=== PATIENT | female | born 1955 | race Caucasian/White ===

== ENCOUNTER 2016-03-10 17:13 | Emergency (ER) | payer OTHER ==
--- NOTE | 2016-03-10 17:59 | ED.PDOC ---
History of Present Illness - General Chief Complaint: General Time Seen by Provider: 03/10/16 17:50 Source: patient Exam Limitations: no limitations - History of Present Illness Initial Comments: Patient presents with non-specific complaints of "not feeling right". She ran out of her cyUmengalta and abilify a month ago and is having trouble getting refills approved by insurance she states. She says she is light-headed and has had palpitations but no chest pain. She is worried that her electrolytes are off and that she is dehydrated. No focal pain complaints. Timing/Duration: unsure Severity: moderate Improving Factors: nothing Worsening Factors: nothing Associated Symptoms: denies symptoms, loss of appetite Allergies/Adverse Reactions: Allergies Penicillins Allergy (Verified 03/10/16 19:22) Other Causes a rash and throat to swell Codeine Adverse Reaction (Mild, Verified 03/10/16 19:22) Unknown Patient states, "Not Allergy". Makes her "feel funny" Hydrocodone Adverse Reaction (Mild, Verified 03/10/16 19:22) Unknown Patient states, "Not allergy". States makes her "feel funny" Hydromorphone [From Dilaudid] Adverse Reaction (Mild, Verified 03/10/16 19:22) Unknown Patient states, "Not Allergy". Morphine Adverse Reaction (Mild, Verified 03/10/16 19:22) Unknown Patient States, "Not Allergy". Makes her "feel funny" horse serum Allergy (Uncoded 03/10/16 19:22) Unknown Home Medications: Ambulatory Orders Duloxetine HCl [Cymbalta] 60 mg PO DAILY #0 05/13/12 Cyclobenzaprine HCl [Flexeril] 10 mg PO BID 06/03/15 Estradiol [Estrace] 1 mg PO DAILY 06/03/15 Lisinopril 20 mg PO DAILY 06/03/15 Potassium Chloride Tab [Micro-K] 10 meq PO ACBK 06/03/15 Sumatriptan Succinate 50 mg PO DAILY PRN 06/03/15 Multiple Vitamins W/ Minerals [One Daily Womens] 1 tab PO DAILY 10/13/15 Oral Electrolytes [Thermotabs] 1 tab PO DAILY 10/13/15 Propranolol HCl [Inderal] 40 mg PO BID 10/13/15 Rosuvastatin Calcium [Crestor] 20 mg PO DAILY 10/13/15 Aripiprazole [Abilify] 15 mg PO DAILY 12/28/15 Diltiazem HCl 30 mg PO BID 12/28/15 Potassium Chloride Tab [Micro-K] 20 meq PO ACHS 12/28/15 Trazodone HCl 350 mg PO HS 12/28/15 Review of Systems - Review of Systems Constitutional: States: weakness EENTM: States: no symptoms reported Respiratory: States: no symptoms reported Cardiology: States: no symptoms reported Gastrointestinal/Abdominal: States: no symptoms reported Genitourinary: States: no symptoms reported Musculoskeletal: States: no symptoms reported Skin: States: no symptoms reported Neurological: States: no symptoms reported Endocrine: States: no symptoms reported Hematologic/Lymphatic: States: no symptoms reported Past Medical History (General) - Patient Medical History Hx Seizures: No Hx Stroke: No Hx Dementia: No Hx Asthma: No Hx of COPD: No Hx Cardiac Disorders: Yes Hx Congestive Heart Failure: No Hx Pacemaker: No Hx Hypertension: Yes Hx Thyroid Disease: No Hx Diabetes: No Hx Gastroesophageal Reflux: No Hx Renal Disease: No Hx Cancer: No Hx of HIV: No Hx Hepatitis C: No Hx MRSA: No MRSA Source:: nose - Vaccination History Hx Tetanus, Diphtheria Vaccination: No Hx Influenza Vaccination: No Hx Pneumococcal Vaccination: No - Social History Hx Tobacco Use: No Hx Chewing Tobacco Use: No Hx Alcohol Use: No Hx Substance Use: No Hx Substance Use Treatment: No Hx Depression: No Hx Physical Abuse: No Hx Emotional Abuse: No Hx Suspected Abuse: No - Female History Patient : No Family Medical History - Family History Mother Family History: No Known Living Status: Hx Family Diabetes: Yes Father Family History: No Known Living Status: Hx Family Hypertension: Yes Hx Family Cancer: Yes Hx Family;Other: dialysis towards end of life Physical Exam - Physical Exam General Appearance: Alert Eye Exam: bilateral normal Ears, Nose, Throat: normal ENT inspection Neck: non-tender, full range of motion, supple Respiratory: lungs clear Cardiovascular/Chest: normal peripheral pulses, regular rate, rhythm, no edema Gastrointestinal/Abdominal: normal bowel sounds, non tender, soft Back Exam: normal inspection, no CVA tenderness Extremity: normal range of motion, non-tender, normal inspection, no pedal edema 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, no motor/sensory deficits, alert, normal mood/affect, oriented x 3 Skin Exam: normal color Lymphatic: no adenopathy Progress - Progress Progress: 03/10/16 20:31 Laboratory Tests 03/10/16 03/10/16 18:05 19:10 WBC 8.2 RBC 4.26 Hgb 14.1 Hct 41.8 MCV 97.9 MCH 33.0 H MCHC 33.8 RDW 12.9 Plt Count 248 MPV 8.5 Absolute Neuts (auto) 5.20 Absolute Lymphs (auto) 2.20 Absolute Monos (auto) 0.60 Absolute Eos (auto) 0.10 Absolute Basos (auto) 0.10 Neutrophils % 63.5 Lymphocytes % 26.3 Monocytes % 7.9 Eosinophils % 1.3 Basophils % 1.0 Sodium 134 L Potassium 3.8 Chloride 103 Carbon Dioxide 24 Anion Gap 10.8 L BUN 19 H Creatinine 0.93 BUN/Creatinine Ratio 20.4 H Random Glucose 113 H Serum Osmolality 271.3 L Calcium 9.7 Total Bilirubin 0.7 AST 36 ALT 26 Alkaline Phosphatase 32 L Serum Total Protein 7.3 Albumin 4.2 Globulin 3.1 Albumin/Globulin Ratio 1.4 Urine Color Yellow Urine Appearance Cloudy Urine pH 6.0 Ur Specific [place] 1.020 Urine Protein Negative Urine Glucose (UA) Negative Urine Ketones Negative Urine Blood Negative Urine Nitrite Positive H Urine Bilirubin Negative Urine Urobilinogen 0.2 Ur Leukocyte Esterase Trace H Urine RBC 3-5 H Urine WBC 10-20 H Ur Epithelial Cells 1-3 Urine Bacteria 4+ H BUN 19 Cr. 0.93 Other labs unremarkable. Patient given one liter NS IV and felt much better. She is going to work with her insurance company and try to get her medications refilled. Departure - Departure Clinical Impression: Dehydration, mild Disposition: Discharge to Home or Self Care Condition: Good Departure Forms: ED Discharge - Pt. Copy, Patient Portal Self Enrollment Diet: resume usual diet Activity: increase activity as tolerated Home Medications: Ambulatory Orders Duloxetine HCl [Cymbalta] 60 mg PO DAILY #0 05/13/12 Cyclobenzaprine HCl [Flexeril] 10 mg PO BID 06/03/15 Estradiol [Estrace] 1 mg PO DAILY 06/03/15 Lisinopril 20 mg PO DAILY 06/03/15 Potassium Chloride Tab [Micro-K] 10 meq PO ACBK 06/03/15 Sumatriptan Succinate 50 mg PO DAILY PRN 06/03/15 Multiple Vitamins W/ Minerals [One Daily Womens] 1 tab PO DAILY 10/13/15 Oral Electrolytes [Thermotabs] 1 tab PO DAILY 10/13/15 Propranolol HCl [Inderal] 40 mg PO BID 10/13/15 Rosuvastatin Calcium [Crestor] 20 mg PO DAILY 10/13/15 Aripiprazole [Abilify] 15 mg PO DAILY 12/28/15 Diltiazem HCl 30 mg PO BID 12/28/15 Potassium Chloride Tab [Micro-K] 20 meq PO ACHS 12/28/15 Trazodone HCl 350 mg PO HS 12/28/15 Additional Instructions: Increase fluids. See your regular doctor regarding refills or changes to your medications.
[2016-03-10] MEDS ORDERED: SODIUM CHLORIDE 0.9% 1000ML 1,000 ML IVS ONE (18:38)
[2016-03-10 19:24] VITALS: O2SAT 96
[2016-03-10 20:49] VITALS: BP 110/75; TEMP 97.6
== END 2016-03-10 20:48 | disposition home or self-care (01) ==
LOC: ER 17:13
DX: E86.0 Dehydration (principal); I10 Essential (primary) hypertension; Z79.899 Other long term (current) drug therapy; Z88.0 Allergy status to penicillin; Z88.6 Allergy status to analgesic agent; Z88.7 Allergy status to serum and vaccine
CPT/HCPCS: 36415; 80053; 81001; 85025; 87086; 87088; 87186; 93005; J7030

== ENCOUNTER → 2016-03-31 | Outpatient (CLI) | payer OTHER | LOC: YCFC.O 17:10 | PROVIDERS: ATTEND Nurse Practitioner Family | DX: N39.0 Urinary tract infection, site not specified (principal) ==

== ENCOUNTER → 2016-08-09 | Outpatient (CLI) | payer OTHER | END | disposition home or self-care (01) | LOC: YCFC.O 16:39 | PROVIDERS: ATTEND Nurse Practitioner Family | DX: N39.0 Urinary tract infection, site not specified (principal) ==

== ENCOUNTER → 2016-08-19 | Outpatient (CLI) | payer OTHER | END | disposition home or self-care (01) | LOC: MAMMO 16:34 | PROVIDERS: ATTEND Nurse Practitioner Family | DX: Z12.31 Encounter for screening mammogram for malignant neoplasm of breast (principal) ==

== ENCOUNTER → 2016-09-02 | Outpatient (CLI) | payer OTHER | LOC: YCFC.O 16:14 | PROVIDERS: ATTEND Nurse Practitioner Family | DX: N39.0 Urinary tract infection, site not specified (principal) ==

== ENCOUNTER → 2016-10-15 | Outpatient (CLI) | payer OTHER | END | disposition home or self-care (01) | LOC: YCFC.O 10:32 | PROVIDERS: ATTEND Nurse Practitioner Family | DX: N39.0 Urinary tract infection, site not specified (principal); E78.2 Mixed hyperlipidemia; I10 Essential (primary) hypertension ==

== ENCOUNTER 2017-01-06 13:11 | Emergency (ER) | payer OTHER ==
[2017-01-06 13:21] VITALS: BP 139/94; TEMP 97.9; O2SAT 97
[2017-01-06] MEDS ORDERED: PROMETHAZINE HCL INJ 25 MG/ML VIAL IM ONE (13:46)
[2017-01-06] MEDS ORDERED: KETOROLAC TROMETHAMINE INJ 30 MG/ML VIAL IM ONE (13:46)
[2017-01-06] MEDS ORDERED: MECLIZINE HCL 12.5 MG TAB PO ONE (13:46)
[2017-01-06] MEDS ORDERED: ACETAMINOPHEN 325 MG TAB PO ONE (13:46)
--- NOTE | 2017-01-06 13:49 | ED.PDOC ---
History of Present Illness - General Chief Complaint: ENT Problem Stated Complaint: earache, headache Time Seen by Provider: 01/06/17 13:45 Source: patient Exam Limitations: no limitations - History of Present Illness Initial Comments: the patient is a 61-year-old female presenting to the emergency room secondary to left ear pain after using a candle to get wax out yesterday. The ear pain is limited to migraine headache. She does have some nausea with the migraine. She has had frequent migraines in the past and has had workup previously. The patient actually has a cerumen impaction bilaterally. One on the left is causing her symptoms. No evidence of infection. There is ear canal irritation from thecandling yesterday. Timing/Duration: unsure Severity: moderate Improving Factors: nothing Worsening Factors: nothing Associated Symptoms: malaise, nausea/vomiting Allergies/Adverse Reactions: Allergies Penicillins Allergy (Verified 01/06/17 13:24) Other Causes a rash and throat to swell Codeine Adverse Reaction (Mild, Verified 01/06/17 13:24) Unknown Patient states, "Not Allergy". Makes her "feel funny" Hydrocodone Adverse Reaction (Mild, Verified 01/06/17 13:24) Unknown Patient states, "Not allergy". States makes her "feel funny" Hydromorphone [From Dilaudid] Adverse Reaction (Mild, Verified 01/06/17 13:24) Unknown Patient states, "Not Allergy". Morphine Adverse Reaction (Mild, Verified 01/06/17 13:24) Unknown Patient States, "Not Allergy". Makes her "feel funny" horse serum Allergy (Uncoded 01/06/17 13:24) Unknown Home Medications: Ambulatory Orders Duloxetine HCl [Cymbalta] 60 mg PO DAILY #0 05/13/12 Cyclobenzaprine HCl [Flexeril] 10 mg PO BID 06/03/15 Estradiol [Estrace] 1 mg PO DAILY 06/03/15 Lisinopril 20 mg PO DAILY 06/03/15 Sumatriptan Succinate 50 mg PO DAILY PRN 06/03/15 Multiple Vitamins W/ Minerals [One Daily Womens] 1 tab PO DAILY 10/13/15 Propranolol HCl [Inderal] 40 mg PO BID 10/13/15 Diltiazem HCl 30 mg PO BID 12/28/15 Potassium Chloride Tab [Micro-K] 20 meq PO TID 12/28/15 Promethazine HCl 25 mg PO Q6H PRN #10 tab 01/06/17 QUEtiapine FUMARATE [SEROquel] 100 mg PO BEDTIME 01/06/17 Review of Systems - Review of Systems Constitutional: States: malaise EENTM: States: see HPI Respiratory: States: no symptoms reported Cardiology: States: see HPI Gastrointestinal/Abdominal: States: nausea Genitourinary: States: no symptoms reported Musculoskeletal: States: no symptoms reported Skin: States: no symptoms reported Neurological: States: headache Hematologic/Lymphatic: States: no symptoms reported All other Systems: No Change from Baseline Past Medical History (General) - Patient Medical History Hx Seizures: No Hx Stroke: No Hx Dementia: No Hx Asthma: No Hx of COPD: No Hx Cardiac Disorders: Yes Hx Congestive Heart Failure: No Hx Pacemaker: No Hx Hypertension: Yes Hx Thyroid Disease: No Hx Diabetes: No Hx Gastroesophageal Reflux: No Hx Renal Disease: No Hx Cancer: No Hx of HIV: No Hx Hepatitis C: No Hx MRSA: No MRSA Source:: nose - Vaccination History Hx Tetanus, Diphtheria Vaccination: No Hx Influenza Vaccination: No Hx Pneumococcal Vaccination: No - Social History Hx Tobacco Use: No Hx Chewing Tobacco Use: No Hx Alcohol Use: No Hx Substance Use: No Hx Substance Use Treatment: No Hx Depression: No Hx Physical Abuse: No Hx Emotional Abuse: No Hx Suspected Abuse: No - Female History Patient is a Female of Child Bearing Age (10 -59 yrs old): No Patient : No Family Medical History - Family History Mother Family History: No Known Living Status: Hx Family Diabetes: Yes Father Family History: No Known Living Status: Hx Family Hypertension: Yes Hx Family Cancer: Yes Hx Family;Other: dialysis towards end of life Physical Exam - Physical Exam General Appearance: Alert, Comfortable, No apparent distress Eye Exam: bilateral normal Ears, Nose, Throat: normal pharynx, other - bilateral cerumen impaction with ear canal irritation on the left Neck: full range of motion, supple Respiratory: no respiratory distress, no accessory muscle use Cardiovascular/Chest: normal peripheral pulses, regular rate, rhythm, no edema Peripheral Pulses: radial,right: 2+, radial,left: 2+, dorsalis pedis,right: 2+, dorsalis pedis,left: 2+ Rectal Exam: deferred Extremity: normal range of motion, no pedal edema, normal capillary refill 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 This has lead to a migraine headache. The patient received a dose of Toradol, Phenergan and meclizine as well as Tylenol here today. We did manually disimpact the left ear canal. No obvious evidence of infection. Ibuprofen may help additionally. The patient is written for Phenergan for as needed use for any nausea. ER warnings were given. She can orange picker some Cerumenex from the grocery store and apply several drops daily to the right ear canal. At the end of the day she can use her shower to irrigate the ear canal and this should gradually disimpact the one on the right. Dizziness should improve with ear canal disimpaction. ER warnings were given for any acute worsening. She should follow-up with her primary care doctor early next week. Departure - Departure Clinical Impression: Otitis externa Qualifiers: Otitis externa type: noninfectious Noninfectious otitis externa type: unspecified noninfectious type Chronicity: acute Laterality: left Qualified Code (s): H60.502 - Unspecified acute noninfective otitis externa, left ear Migraine Qualifiers: Migraine type: unspecified Status migrainosus presence: without status migrainosus Intractability: not intractable Qualified Code(s): G43.909 - Migraine, unspecified, not intractable, without status migrainosus Disposition: Discharge to Home or Self Care Condition: Fair Departure Forms: ED Discharge - Pt. Copy, Patient Portal Self Enrollment Instructions: DI for Ear Pain-Adult, Migraine -- Adult Diet: regular diet Activity: increase activity as tolerated Referrals: Belinda Velez [employer] [Primary Care Provider] - 1-2 Weeks Prescriptions: Promethazine HCl 25 mg PO Q6H PRN #10 tab PRN Reason: Vomiting Home Medications: Ambulatory Orders Duloxetine HCl [Cymbalta] 60 mg PO DAILY #0 05/13/12 Cyclobenzaprine HCl [Flexeril] 10 mg PO BID 06/03/15 Estradiol [Estrace] 1 mg PO DAILY 06/03/15 Lisinopril 20 mg PO DAILY 06/03/15 Sumatriptan Succinate 50 mg PO DAILY PRN 06/03/15 Multiple Vitamins W/ Minerals [One Daily Womens] 1 tab PO DAILY 10/13/15 Propranolol HCl [Inderal] 40 mg PO BID 10/13/15 Diltiazem HCl 30 mg PO BID 12/28/15 Potassium Chloride Tab [Micro-K] 20 meq PO TID 12/28/15 Promethazine HCl 25 mg PO Q6H PRN #10 tab 01/06/17 QUEtiapine FUMARATE [SEROquel] 100 mg PO BEDTIME 01/06/17 Additional Instructions: the patient is a 61-year-old female presenting with an otitis externa due to instrumentation yesterday on the left. This has lead to a migraine headache. The patient received a dose of Toradol, Phenergan and meclizine as well as Tylenol here today. We did manually disimpact the left ear canal. No obvious evidence of infection. Ibuprofen may help additionally. The patient is written for Phenergan for as needed use for any nausea. ER warnings were given. She can orange picker some Cerumenex from the grocery store and apply several drops daily to the right ear canal. At the end of the day she can use her shower to irrigate the ear canal and this should gradually disimpact the one on the right. Dizziness should improve with ear canal disimpaction. ER warnings were given for any acute worsening. She should follow-up with her primary care doctor early next week.
== END 2017-01-06 14:20 | disposition home or self-care (01) ==
LOC: ER 13:11
DX: H60.502 Unspecified acute noninfective otitis externa, left ear (principal); G43.909 Migraine, unspecified, not intractable, without status migrainosus; I10 Essential (primary) hypertension
CPT/HCPCS: J1885; J2550

== ENCOUNTER 2017-02-10 12:15 | Emergency (ER) | payer OTHER ==
[2017-02-10 12:34] VITALS: TEMP 99.1
--- NOTE | 2017-02-10 13:13 | ED.PDOC ---
History of Present Illness - General Chief Complaint: General Stated Complaint: abdominal cramping, body aches, chills Time Seen by Provider: 02/10/17 13:13 Source: patient - History of Present Illness Initial Comments: Sona Bonds 61 y/o female seen today with feeling of nausea/no vomiting , abdominal cramps,no diarrhea,had normal Bm yesterday,and not feeling well.Denies chills,dysuria,.No ill contact,no foreign travel Timing/Duration: other - yesterday Improving Factors: nothing Worsening Factors: nothing Associated Symptoms: other - see hpi Allergies/Adverse Reactions: Allergies Penicillins Allergy (Verified 02/10/17 12:35) Other Causes a rash and throat to swell horse serum Allergy (Uncoded 02/10/17 12:35) Unknown Home Medications: Ambulatory Orders Duloxetine HCl [Cymbalta] 60 mg PO DAILY #0 05/13/12 Cyclobenzaprine HCl [Flexeril] 10 mg PO BID 06/03/15 Estradiol [Estrace] 1 mg PO DAILY 06/03/15 Lisinopril 20 mg PO DAILY 06/03/15 Sumatriptan Succinate 50 mg PO DAILY PRN 06/03/15 Multiple Vitamins W/ Minerals [One Daily Womens] 1 tab PO DAILY 10/13/15 Propranolol HCl [Inderal] 40 mg PO BID 10/13/15 Diltiazem HCl 30 mg PO BID 12/28/15 Potassium Chloride Tab [Micro-K] 20 meq PO TID 12/28/15 Promethazine HCl 25 mg PO Q6H PRN #10 tab 01/06/17 QUEtiapine FUMARATE [SEROquel] 100 mg PO BEDTIME 01/06/17 Dicyclomine HCl [Bentyl] 20 mg PO BID PRN #10 tab 02/10/17 Nitrofurantoin Monohydrate Mac [Macrobid] 100 mg PO BID #14 cap 02/10/17 Ondansetron [Zofran Odt] 4 mg PO TID PRN #7 tab 02/10/17 Review of Systems - Review of Systems Constitutional: States: see HPI EENTM: States: no symptoms reported Respiratory: States: no symptoms reported Cardiology: States: no symptoms reported Gastrointestinal/Abdominal: States: see HPI Genitourinary: States: no symptoms reported Musculoskeletal: States: no symptoms reported Skin: States: no symptoms reported Neurological: States: no symptoms reported Past Medical History (General) - Patient Medical History Hx Seizures: No Hx Stroke: No Hx Dementia: No Hx Asthma: No Hx of COPD: No Hx Cardiac Disorders: Yes Hx Congestive Heart Failure: No Hx Pacemaker: No Hx Hypertension: Yes Hx Thyroid Disease: No Hx Diabetes: No Hx Gastroesophageal Reflux: No Hx Renal Disease: No Hx Cancer: No Hx of HIV: No Hx Hepatitis C: No Hx MRSA: No MRSA Source:: nose Surgical History: appendectomy, cholecystectomy, other - bariatric surgery;CTS, - Vaccination History Hx Tetanus, Diphtheria Vaccination: No Hx Influenza Vaccination: Yes Hx Pneumococcal Vaccination: Yes - Social History Hx Tobacco Use: No Hx Chewing Tobacco Use: No Hx Alcohol Use: No Hx Substance Use: No Hx Substance Use Treatment: No Hx Depression: No Hx Physical Abuse: No Hx Emotional Abuse: No Hx Suspected Abuse: No - Female History Patient : No Family Medical History - Family History Mother Family History: No Known Living Status: Hx Family Hypertension: Yes - mom Hx Family Diabetes: Yes Hx Family Cancer: Yes - dad-kidney Father Family History: No Known Living Status: Hx Family Hypertension: Yes Hx Family Cancer: Yes Hx Family;Other: dialysis towards end of life Physical Exam - Physical Exam General Appearance: Alert, Comfortable, No apparent distress Eye Exam: bilateral normal Ears, Nose, Throat: hearing grossly normal, normal ENT inspection, normal pharynx Neck: non-tender, full range of motion, supple Respiratory: chest non-tender, lungs clear, normal breath sounds, no respiratory distress Cardiovascular/Chest: normal peripheral pulses, regular rate, rhythm, no edema, no murmur Peripheral Pulses: radial,right: 2+, radial,left: 2+ Gastrointestinal/Abdominal: normal bowel sounds, non tender, soft, no organomegaly Back Exam: normal inspection, no CVA tenderness, no vertebral tenderness Neurologic: alert, normal mood/affect, oriented x 3 Skin Exam: normal color, warm/dry, cyanosis Progress - Progress Progress: 02/10/17 13:26 Last Vital Signs Temp 99.1 F 02/10/17 12:27 Pulse 128 H 02/10/17 12:27 Resp 20 02/10/17 12:27 BP 141/105 02/10/17 12:27 Pulse Ox 98 12/28/17 12:27 - Results/Orders Results/Orders: Laboratory Tests 02/10/17 02/10/17 02/10/17 13:27 13:44 13:44 WBC 8.7 RBC 4.93 Hgb 15.6 Hct 45.7 MCV 92.8 MCH 31.6 H MCHC 34.1 RDW 12.4 Plt Count 228 MPV 9.0 Absolute Neuts (auto) 6.50 Absolute Lymphs (auto) 1.50 Absolute Monos (auto) 0.60 Absolute Eos (auto) 0.00 Absolute Basos (auto) 0.00 Neutrophils % 74.7 Lymphocytes % 17.5 L Monocytes % 7.0 Eosinophils % 0.5 L Basophils % 0.3 Sodium 139 Potassium 3.5 L Chloride 103 Carbon Dioxide 24 Anion Gap 15.5 BUN 8 Creatinine 0.74 BUN/Creatinine Ratio 10.8 Random Glucose 120 H Serum Osmolality 277.1 Lactic Acid Calcium 9.5 Total Bilirubin 0.4 AST 42 ALT 28 Alkaline Phosphatase 46 Serum Total Protein 8.5 H Albumin 4.5 Globulin 4.0 H Albumin/Globulin Ratio 1.1 Lipase 20 L Urine Color Urine Appearance Urine pH Ur Specific [place] Urine Protein Urine Glucose (UA) Urine Ketones Urine Blood Urine Nitrite Urine Bilirubin Urine Urobilinogen Ur Leukocyte Esterase Urine RBC Urine WBC Ur Epithelial Cells Urine Bacteria Urine Opiates Screen Negative Urine Barbiturates Negative Ur Phencyclidine Scrn Negative U Amphetamin/Meth Scrn Negative U Benzodiazepines Scrn Negative U Cocaine Metab Screen Negative U Cannabinoids Screen Negative 02/10/17 02/10/17 13:44 14:10 WBC RBC Hgb Hct MCV MCH MCHC RDW Plt Count MPV Absolute Neuts (auto) Absolute Lymphs (auto) Absolute Monos (auto) Absolute Eos (auto) Absolute Basos (auto) Neutrophils % Lymphocytes % Monocytes % Eosinophils % Basophils % Sodium Potassium Chloride Carbon Dioxide Anion Gap BUN Creatinine BUN/Creatinine Ratio Random Glucose Serum Osmolality Lactic Acid 1.4 Calcium Total Bilirubin AST ALT Alkaline Phosphatase Serum Total Protein Albumin Globulin Albumin/Globulin Ratio Lipase Urine Color Yellow Urine Appearance Sl cloudy Urine pH 7.0 Ur Specific [place] 1.020 Urine Protein 100 H Urine Glucose (UA) Negative Urine Ketones 15 H Urine Blood Trace-intact H Urine Nitrite Negative Urine Bilirubin Negative Urine Urobilinogen 0.2 Ur Leukocyte Esterase Negative Urine RBC 1-3 Urine WBC 10-20 H Ur Epithelial Cells 1-3 Urine Bacteria 4+ H Urine Opiates Screen Urine Barbiturates Ur Phencyclidine Scrn U Amphetamin/Meth Scrn U Benzodiazepines Scrn U Cocaine Metab Screen U Cannabinoids Screen - EKG/XRAY/CT XRAY: chest - no acute abnormality Departure - Departure Clinical Impression: Nausea alone, Abdominal cramps Urinary tract infection Qualifiers: Urinary tract infection type: site unspecified Hematuria presence: without hematuria Qualified Code(s): N39.0 - Urinary tract infection, site not specified Time of Disposition: 15:53 Disposition: Discharge to Home or Self Care Condition: Fair Departure Forms: ED Discharge - Pt. Copy, Patient Portal Self Enrollment Instructions: DI for Nausea -- Adult Referrals: Belinda Velez NP [Primary Care Provider] - 1-2 Weeks Prescriptions: Dicyclomine HCl [Bentyl] 20 mg PO BID PRN #10 tab PRN Reason: Abdominal Cramping Nitrofurantoin Monohydrate Mac [Macrobid] 100 mg PO BID #14 cap Ondansetron [Zofran Odt] 4 mg PO TID PRN #7 tab PRN Reason: Nausea Home Medications: Ambulatory Orders Duloxetine HCl [Cymbalta] 60 mg PO DAILY #0 05/13/12 Cyclobenzaprine HCl [Flexeril] 10 mg PO BID 06/03/15 Estradiol [Estrace] 1 mg PO DAILY 06/03/15 Lisinopril 20 mg PO DAILY 06/03/15 Sumatriptan Succinate 50 mg PO DAILY PRN 06/03/15 Multiple Vitamins W/ Minerals [One Daily Womens] 1 tab PO DAILY 10/13/15 Propranolol HCl [Inderal] 40 mg PO BID 10/13/15 Diltiazem HCl 30 mg PO BID 12/28/15 Potassium Chloride Tab [Micro-K] 20 meq PO TID 12/28/15 Promethazine HCl 25 mg PO Q6H PRN #10 tab 01/06/17 QUEtiapine FUMARATE [SEROquel] 100 mg PO BEDTIME 01/06/17 Dicyclomine HCl [Bentyl] 20 mg PO BID PRN #10 tab 02/10/17 Nitrofurantoin Monohydrate Mac [Macrobid] 100 mg PO BID #14 cap 02/10/17 Ondansetron [Zofran Odt] 4 mg PO TID PRN #7 tab 02/10/17 Additional Instructions: Follow up with primary Md 02/15/2017 call for your appointment as needed
[2017-02-10] MEDS ORDERED: PROMETHAZINE HCL INJ 25 MG/ML VIAL IM ONE (13:27)
[2017-02-10] MEDS ORDERED: DICYCLOMINE HCL INJ 20 MG/2 ML AMP IM ONE (13:27)
[2017-02-10] MEDS ORDERED: LACTATED RINGERS 1,000 ML IVS ONE (13:27)
--- NOTE | 2017-02-10 14:49 | RAD ---
EXAM DESCRIPTION: Chest,1 View CLINICAL HISTORY: 61 years Female, malaise. COMPARISON: 10/13/2015 IMPRESSION: Heart size and pulmonary vascularity is within normal limits. The thoracic aorta is tortuous and contains moderate calcific plaque. There is no airspace consolidation, pleural effusion, or pneumothorax. No acute osseous abnormality. Electronically signed by: Telly Arreguin MD 02/10/2017 2:48 PM [facility]
[2017-02-10] MEDS ORDERED: ONDANSETRON INJ 4 MG/2 ML VIAL IV ONE (15:04)
[2017-02-10] MEDS ORDERED: cefTRIAXone SODIUM 1 GM in SODIUM CHL 0.9% 50ML MIN-BAG+ 50 ML IVPB ONE (15:04)
[2017-02-10] MEDS ORDERED: cefTRIAXone SODIUM 1 GM VIAL ONE (15:14)
[2017-02-10] MEDS ORDERED: SODIUM CHL 0.9% 50ML MIN-BAG+ 50 ML IVPB ONE (15:14)
[2017-02-10 16:26] VITALS: BP 138/111; O2SAT 97
== END 2017-02-10 16:15 | disposition home or self-care (01) ==
LOC: ER 12:15
DX: N39.0 Urinary tract infection, site not specified (principal); R11.0 Nausea; I10 Essential (primary) hypertension; Z88.0 Allergy status to penicillin; Z88.7 Allergy status to serum and vaccine; Z79.899 Other long term (current) drug therapy
CPT/HCPCS: 36415; 71010; 80053; 80307; 81001; 83605; 83690; 85025; 87086; 87502; J0500; J0696; J2405; J2550; J7050; J7120

== ENCOUNTER → 2017-03-11 | Outpatient (CLI) | payer OTHER | LOC: YCFC.O 16:05 | PROVIDERS: ATTEND Nurse Practitioner Family | DX: R82.99 Other abnormal findings in urine (principal) ==

== ENCOUNTER 2017-05-21 13:54 | Emergency (ER) | payer OTHER ==
[2017-05-21] MEDS ORDERED: CIPROFLOXACIN 500 MG TAB PO ONE (14:32)
--- NOTE | 2017-05-21 14:35 | ED.PDOC ---
History of Present Illness - General Chief Complaint: Problem Stated Complaint: Dysuria, Urinary frequency Time Seen by Provider: 05/21/17 13:56 Source: patient Exam Limitations: no limitations - History of Present Illness Initial Comments: the patient is a 61-year-old female presenting to the emergency room secondary to feelings of dysuria and frequency for the last 24 hours. No new back pain. No fever. No dizziness. No weakness. Timing/Duration: 24 hours Severity: mild Improving Factors: nothing Worsening Factors: nothing Associated Symptoms: denies symptoms Allergies/Adverse Reactions: Allergies Penicillins Allergy (Verified 05/21/17 14:06) Other Causes a rash and throat to swell horse serum Allergy (Uncoded 05/21/17 14:06) Unknown Home Medications: Ambulatory Orders Duloxetine HCl [Cymbalta] 60 mg PO DAILY #0 05/13/12 Cyclobenzaprine HCl [Flexeril] 10 mg PO BID 06/03/15 Estradiol [Estrace] 1 mg PO DAILY 06/03/15 Lisinopril 20 mg PO DAILY 06/03/15 Sumatriptan Succinate 50 mg PO DAILY PRN 06/03/15 Multiple Vitamins W/ Minerals [One Daily Womens] 1 tab PO DAILY 10/13/15 Propranolol HCl [Inderal] 40 mg PO BID 10/13/15 Diltiazem HCl 30 mg PO BID 12/28/15 Potassium Chloride Tab [Micro-K] 20 meq PO TID 12/28/15 Promethazine HCl 25 mg PO Q6H PRN #10 tab 01/06/17 QUEtiapine FUMARATE [SEROquel] 100 mg PO BEDTIME 01/06/17 Dicyclomine HCl [Bentyl] 20 mg PO BID PRN #10 tab 02/10/17 Nitrofurantoin Monohydrate Mac [Macrobid] 100 mg PO BID #14 cap 02/10/17 Ondansetron [Zofran Odt] 4 mg PO TID PRN #7 tab 02/10/17 Ciprofloxacin [Cipro] 500 mg PO BID #10 tab 05/21/17 Review of Systems - Review of Systems Constitutional: States: no symptoms reported EENTM: States: no symptoms reported Respiratory: States: no symptoms reported Cardiology: States: no symptoms reported Gastrointestinal/Abdominal: States: no symptoms reported Genitourinary: States: see HPI Musculoskeletal: States: no symptoms reported Skin: States: no symptoms reported Neurological: States: no symptoms reported Endocrine: States: no symptoms reported All other Systems: No Change from Baseline Past Medical History (General) - Patient Medical History Hx Seizures: No Hx Stroke: No Hx Dementia: No Hx Asthma: No Hx of COPD: No Hx Cardiac Disorders: Yes Hx Congestive Heart Failure: No Hx Pacemaker: No Hx Hypertension: Yes Hx Thyroid Disease: No Hx Diabetes: No Hx Gastroesophageal Reflux: No Hx Renal Disease: No Hx Cancer: No Hx of HIV: No Hx Hepatitis C: No Hx MRSA: No MRSA Source:: nose - Vaccination History Hx Tetanus, Diphtheria Vaccination: No Hx Influenza Vaccination: Yes Hx Pneumococcal Vaccination: Yes - Social History Hx Tobacco Use: No Hx Chewing Tobacco Use: No Hx Alcohol Use: No Hx Substance Use: No Hx Substance Use Treatment: No Hx Depression: No Hx Physical Abuse: No Hx Emotional Abuse: No Hx Suspected Abuse: No - Female History Patient : No Family Medical History - Family History Mother Family History: No Known Living Status: Hx Family Hypertension: Yes - mom Hx Family Diabetes: Yes Hx Family Cancer: Yes - dad-kidney Father Family History: No Known Living Status: Hx Family Hypertension: Yes Hx Family Cancer: Yes Hx Family;Other: dialysis towards end of life Physical Exam - Physical Exam General Appearance: Alert, Comfortable, No apparent distress Eye Exam: bilateral normal Ears, Nose, Throat: hearing grossly normal Neck: full range of motion Respiratory: no respiratory distress, no accessory muscle use Cardiovascular/Chest: normal peripheral pulses, no edema Peripheral Pulses: radial,right: 2+, radial,left: 2+ Rectal Exam: deferred Back Exam: no CVA tenderness Extremity: normal range of motion, no pedal edema, normal capillary refill Neurologic: staff research scientist II-XII nml as tested, alert, normal mood/affect, oriented x 3 Skin Exam: normal color Progress - Progress Progress: 05/21/17 14:34 the patient is a 61-year-old female presenting to the emergency room secondary to what appears to be a small urinary tract infection. Urine culture will be done. The patient needs to keep herself well-hydrated. The patient was placed on ciprofloxacin twice daily for 5 days with her first dose given today. ER warnings were given for any significant worsening. She should plan on following up with her primary care doctor around Tuesday for a repeat urinalysis for testing for improvement as well as for follow-up on the urine culture. Departure - Departure Clinical Impression: Cystitis Disposition: Discharge to Home or Self Care Condition: Fair Departure Forms: ED Discharge - Pt. Copy, Patient Portal Self Enrollment Instructions: DI for Urinary Tract Infection (UTI) Diet: regular diet Activity: increase activity as tolerated Referrals: Belinda Velez, HEATING EQUIPMENT REPAIRER [Primary Care Provider] - 1-2 Weeks Prescriptions: Ciprofloxacin [Cipro] 500 mg PO BID #10 tab Home Medications: Ambulatory Orders Duloxetine HCl [Cymbalta] 60 mg PO DAILY #0 05/13/12 Cyclobenzaprine HCl [Flexeril] 10 mg PO BID 06/03/15 Estradiol [Estrace] 1 mg PO DAILY 06/03/15 Lisinopril 20 mg PO DAILY 06/03/15 Sumatriptan Succinate 50 mg PO DAILY PRN 06/03/15 Multiple Vitamins W/ Minerals [One Daily Womens] 1 tab PO DAILY 10/13/15 Propranolol HCl [Inderal] 40 mg PO BID 10/13/15 Diltiazem HCl 30 mg PO BID 12/28/15 Potassium Chloride Tab [Micro-K] 20 meq PO TID 12/28/15 Promethazine HCl 25 mg PO Q6H PRN #10 tab 01/06/17 QUEtiapine FUMARATE [SEROquel] 100 mg PO BEDTIME 01/06/17 Dicyclomine HCl [Bentyl] 20 mg PO BID PRN #10 tab 02/10/17 Nitrofurantoin Monohydrate Mac [Macrobid] 100 mg PO BID #14 cap 02/10/17 Ondansetron [Zofran Odt] 4 mg PO TID PRN #7 tab 02/10/17 Ciprofloxacin [Cipro] 500 mg PO BID #10 tab 05/21/17 Additional Instructions: the patient is a 61-year-old female presenting to the emergency room secondary to what appears to be a small urinary tract infection. Urine culture will be done. The patient needs to keep herself well-hydrated. The patient was placed on ciprofloxacin twice daily for 5 days with her first dose given today. ER warnings were given for any significant worsening. She should plan on following up with her primary care doctor around Tuesday for a repeat urinalysis for testing for improvement as well as for follow-up on the urine culture.
[2017-05-21 14:46] VITALS: BP 111/78; TEMP 98.2; O2SAT 97
== END 2017-05-21 14:50 | disposition home or self-care (01) ==
LOC: ER 13:54
DX: N30.90 Cystitis, unspecified without hematuria (principal); I10 Essential (primary) hypertension; Z79.899 Other long term (current) drug therapy

== ENCOUNTER → 2017-05-31 | Outpatient (CLI) | payer OTHER ==
--- NOTE | 2017-06-01 08:34 | RAD ---
EXAM DESCRIPTION: Chest,2 Views CLINICAL HISTORY: SOB COMPARISON: Previous study February 10, 2017 TECHNIQUE: PA/lateral FINDINGS: There is no acute appearing cardiac or pulmonary abnormality. Heart size is normal with normal pulmonary vascularity. No pleural effusion or pneumothorax. Lungs are clear with no consolidating infiltrate. Lateral view shows intact sternum and multilevel spurring in the T-spine. IMPRESSION: No acute process is identified in the chest. Electronically signed by: Mal Barker MD 06/01/2017 8:33 AM CDT
== END ==
LOC: LAB.O 15:27
PROVIDERS: ATTEND Nurse Practitioner Family
DX: R06.02 Shortness of breath (principal); R60.0 Localized edema

== ENCOUNTER 2017-07-03 14:36 | Emergency (ER) | payer OTHER ==
[2017-07-03] MEDS ORDERED: SUMAtriptan SUCCINATE INJ 6 MG/0.5 ML VIAL SUBCU ONE (14:46)
[2017-07-03] MEDS ORDERED: PROMETHAZINE HCL INJ 25 MG/ML VIAL IM ONE (14:46)
[2017-07-03] MEDS ORDERED: KETOROLAC TROMETHAMINE INJ 60 MG/2 ML VIAL IM ONE (14:46)
[2017-07-03 14:48] VITALS: BP 152/98; TEMP 98.2; O2SAT 98
--- NOTE | 2017-07-03 14:49 | ED.PDOC ---
History of Present Illness - General Chief Complaint: Headache Stated Complaint: migraine,nausea,UTI sx Time Seen by Provider: 07/03/17 14:45 Source: patient, Vital Signs reviewed Exam Limitations: no limitations Additional Information: 61 YEAR OLD WHITE FEMALE COMPLAINTS OF HEADACHE NAUSEA STARTED LAST NIGHT HAS ALSO DYSURIA AND INCREASED FREQUENCY OF URINATION SHE HAS NO FEVER CHILLS NO PHOTOPHOBIA OR NECK STIFFNESS FOR HER HEADACHE SHE TAKES IMITREX - History of Present Illness Timing/Duration: 24 hours Severity: moderate Improving Factors: nothing Associated Symptoms: denies symptoms Allergies/Adverse Reactions: Allergies Penicillins Allergy (Verified 05/21/17 14:06) Other Causes a rash and throat to swell horse serum Allergy (Uncoded 05/21/17 14:06) Unknown Home Medications: Ambulatory Orders Cyclobenzaprine HCl [Flexeril] 20 mg PO BEDTIME 06/03/15 Estradiol [Estrace] 1 mg PO BEDTIME 06/03/15 Lisinopril 20 mg PO DAILY 06/03/15 Sumatriptan Succinate 50 mg PO DAILY PRN 06/03/15 Diltiazem HCl 30 mg PO BID 12/28/15 Potassium Chloride Tab [Micro-K] 10 meq PO DAILY 12/28/15 QUEtiapine FUMARATE [SEROquel] 250 mg PO BEDTIME 01/06/17 Cyclobenzaprine HCl 10 mg PO DAILY 05/21/17 Simvastatin 10 mg PO BEDTIME 05/21/17 Sucralfate 1 gm PO QID 05/21/17 cloNAZepam [KlonoPIN] 1.5 mg PO BEDTIME 05/21/17 B-Complex W/Biotin & Folic Aci [Super B-Complex] 2 tab PO DAILY 07/03/17 Black Pepper-Turmeric [Turmeric Curcumin Complex 500-3 mg] 1 cap PO BID Multiple Vitamins W/ Minerals [Alive Once Daily Womens U] 1 tab PO DAILY Oral Electrolytes [Thermotabs] 1 tab PO DAILY 07/03/17 Potassium Chloride [Micro-K] 20 meq PO BEDTIME 07/03/17 Propranolol HCl [Inderal] 40 mg PO BID 07/03/17 Sulfa/Trimeth 800/160 (Ds) Tab [Bactrim DS Tab] 1 ea PO Q12HR #20 tab 07/03/17 Review of Systems - Review of Systems Constitutional: States: no symptoms reported EENTM: States: no symptoms reported Respiratory: States: no symptoms reported Cardiology: States: no symptoms reported Gastrointestinal/Abdominal: States: no symptoms reported Genitourinary: States: dysuria, frequency Musculoskeletal: States: no symptoms reported Skin: States: no symptoms reported Neurological: States: headache Endocrine: States: no symptoms reported Hematologic/Lymphatic: States: no symptoms reported Past Medical History (General) - Patient Medical History Hx Seizures: No Hx Stroke: No Hx Dementia: No Hx Asthma: No Hx of COPD: No Hx Cardiac Disorders: Yes Hx Congestive Heart Failure: No Hx Pacemaker: No Hx Hypertension: Yes Hx Thyroid Disease: No Hx Diabetes: No Hx Gastroesophageal Reflux: No Hx Renal Disease: No Hx Cancer: No Hx of HIV: No Hx Hepatitis C: No Hx MRSA: No MRSA Source:: nose - Vaccination History Hx Tetanus, Diphtheria Vaccination: No Hx Influenza Vaccination: Yes Hx Pneumococcal Vaccination: Yes - Social History Hx Tobacco Use: No Hx Chewing Tobacco Use: No Hx Alcohol Use: No Hx Substance Use: No Hx Substance Use Treatment: No Hx Depression: No Hx Physical Abuse: No Hx Emotional Abuse: No Hx Suspected Abuse: No - Female History Patient : No Family Medical History - Family History Mother Family History: No Known Living Status: Hx Family Hypertension: Yes - mom Hx Family Diabetes: Yes Hx Family Cancer: Yes - dad-kidney Father Family History: No Known Living Status: Hx Family Hypertension: Yes Hx Family Cancer: Yes Hx Family;Other: dialysis towards end of life Physical Exam - Physical Exam General Appearance: Alert, Comfortable Eye Exam: bilateral normal Ears, Nose, Throat: hearing grossly normal, normal ENT inspection, normal pharynx Neck: non-tender, full range of motion, supple Respiratory: chest non-tender, lungs clear, normal breath sounds, no respiratory distress Cardiovascular/Chest: normal peripheral pulses, regular rate, rhythm, no edema, no gallop, no JVD Peripheral Pulses: radial,right: 2+, radial,left: 2+, femoral,right: 2+, femoral ,left: 2+, popliteal,right: 2+, popliteal,left: 2+ Gastrointestinal/Abdominal: normal bowel sounds, non tender, soft, no organomegaly Back Exam: normal inspection, no CVA tenderness, no vertebral tenderness Neurologic: gin clerk II-XII nml as tested, no motor/sensory deficits, alert, normal mood/affect, oriented x 3, abnormal cerebellar tests Departure - Departure Clinical Impression: Headache, Migraine, Urinary tract infection Time of Disposition: 16:56 Disposition: Discharge to Home or Self Care Condition: Good Departure Forms: ED Discharge - Pt. Copy, Patient Portal Self Enrollment Instructions: DI for Headache Diet: resume usual diet Referrals: Belinda Velez, MANAGEMENT INSTRUCTOR [Primary Care Provider] - 1-2 Weeks Prescriptions: Sulfa/Trimeth 800/160 (Ds) Tab [Bactrim DS Tab] 1 ea PO Q12HR #20 tab Home Medications: Ambulatory Orders Cyclobenzaprine HCl [Flexeril] 20 mg PO BEDTIME 06/03/15 Estradiol [Estrace] 1 mg PO BEDTIME 06/03/15 Lisinopril 20 mg PO DAILY 06/03/15 Sumatriptan Succinate 50 mg PO DAILY PRN 06/03/15 Diltiazem HCl 30 mg PO BID 12/28/15 Potassium Chloride Tab [Micro-K] 10 meq PO DAILY 12/28/15 QUEtiapine FUMARATE [SEROquel] 250 mg PO BEDTIME 01/06/17 Cyclobenzaprine HCl 10 mg PO DAILY 05/21/17 Simvastatin 10 mg PO BEDTIME 05/21/17 Sucralfate 1 gm PO QID 05/21/17 cloNAZepam [KlonoPIN] 1.5 mg PO BEDTIME 05/21/17 B-Complex W/Biotin & Folic Aci [Super B-Complex] 2 tab PO DAILY 07/03/17 Black Pepper-Turmeric [Turmeric Curcumin Complex 500-3 mg] 1 cap PO BID Multiple Vitamins W/ Minerals [Alive Once Daily Womens U] 1 tab PO DAILY Oral Electrolytes [Thermotabs] 1 tab PO DAILY 07/03/17 Potassium Chloride [Micro-K] 20 meq PO BEDTIME 07/03/17 Propranolol HCl [Inderal] 40 mg PO BID 07/03/17 Sulfa/Trimeth 800/160 (Ds) Tab [Bactrim DS Tab] 1 ea PO Q12HR #20 tab 07/03/17
[2017-07-03] MEDS ORDERED: fentaNYL CITRATE INJ 50 MCG/ML AMP IV ONE (15:39)
[2017-07-03] MEDS ORDERED: SULFA/TRIMETH 800/160 (DS) TAB 1 EA TAB PO ONE (15:39)
[2017-07-03] MEDS ORDERED: ONDANSETRON INJ 4 MG/2 ML VIAL IV ONE (15:40)
== END 2017-07-03 17:07 | disposition home or self-care (01) ==
LOC: ER 14:36
DX: G43.909 Migraine, unspecified, not intractable, without status migrainosus (principal); N39.0 Urinary tract infection, site not specified; I10 Essential (primary) hypertension
CPT/HCPCS: 81001; 87086; J1885; J2405; J2550; J3010; J3030

== ENCOUNTER 2017-07-05 10:20 | Emergency (ER) | payer OTHER ==
[2017-07-05 11:29] VITALS: TEMP 98.3
--- NOTE | 2017-07-05 12:00 | ED.PDOC ---
History of Present Illness - General Chief Complaint: Headache Stated Complaint: headache Time Seen by Provider: 07/05/17 11:47 Source: patient Exam Limitations: no limitations - History of Present Illness Initial Comments: Sona Bonds 61 y/o female stated that she had been having throbbing headache right side of head since Tuesday and came to ER she was given toradol,zofran and imitrex for the condition stated felt better until today early this am had recurrence of symtoms.She stated that she was taking imitrex for her migraine headaches and recently it has not been working .Also felt nauseated with nausea, phonopsia.Denies blurry vision,dysarthria,weakness,numbness. Timing/Duration: other - 3 days Quality: throbbing Head Injury Location: parietal Recent Head Trauma: occasional headaches - migraines Associated Symptoms: denies symptoms, other - see hpi Allergies/Adverse Reactions: Allergies Penicillins Allergy (Verified 07/05/17 11:29) Other Causes a rash and throat to swell horse serum Allergy (Uncoded 07/05/17 11:29) Unknown Home Medications: Ambulatory Orders Cyclobenzaprine HCl [Flexeril] 20 mg PO BEDTIME 06/03/15 Estradiol [Estrace] 1 mg PO BEDTIME 06/03/15 Lisinopril 20 mg PO DAILY 06/03/15 Sumatriptan Succinate 50 mg PO DAILY PRN 06/03/15 Diltiazem HCl 30 mg PO BID 12/28/15 Potassium Chloride Tab [Micro-K] 10 meq PO DAILY 12/28/15 QUEtiapine FUMARATE [SEROquel] 250 mg PO BEDTIME 01/06/17 Cyclobenzaprine HCl 10 mg PO DAILY 05/21/17 Simvastatin 10 mg PO BEDTIME 05/21/17 Sucralfate 1 gm PO QID 05/21/17 cloNAZepam [KlonoPIN] 1.5 mg PO BEDTIME 05/21/17 B-Complex W/Biotin & Folic Aci [Super B-Complex] 2 tab PO DAILY 07/03/17 Black Pepper-Turmeric [Turmeric Curcumin Complex 500-3 mg] 1 cap PO BID Multiple Vitamins W/ Minerals [Alive Once Daily Womens U] 1 tab PO DAILY Oral Electrolytes [Thermotabs] 1 tab PO DAILY 07/03/17 Potassium Chloride [Micro-K] 20 meq PO BEDTIME 07/03/17 Propranolol HCl [Inderal] 40 mg PO BID 07/03/17 Sulfa/Trimeth 800/160 (Ds) Tab [Bactrim DS Tab] 1 ea PO Q12HR #20 tab 07/03/17 Baclofen 20 mg PO BID #30 tab 07/05/17 Promethazine Tab [Phenergan Tablet] 25 mg PO .Q4H PRN #30 tab 07/05/17 Topiramate [Topiramate ER] 25 mg PO DAILY #30 cap 07/05/17 Review of Systems - Review of Systems Constitutional: States: no symptoms reported EENTM: States: no symptoms reported Respiratory: States: no symptoms reported Neurological: States: see HPI, headache All other Systems: Reviewed and Negative, No Change from Baseline Past Medical History (General) - Patient Medical History Hx Seizures: No Hx Stroke: No Hx Dementia: No Hx Asthma: No Hx of COPD: No Hx Cardiac Disorders: Yes Hx Congestive Heart Failure: No Hx Pacemaker: No Hx Hypertension: Yes Hx Thyroid Disease: No Hx Diabetes: No Hx Gastroesophageal Reflux: No Hx Renal Disease: No Hx Cancer: No Hx of HIV: No Hx Hepatitis C: No Hx MRSA: No Hx Other PMH: Yes - migraines MRSA Source:: nose Surgical History: cholecystectomy, other - bariatric,CTS - Vaccination History Hx Tetanus, Diphtheria Vaccination: No Hx Influenza Vaccination: Yes Hx Pneumococcal Vaccination: No - Social History Hx Tobacco Use: No Hx Chewing Tobacco Use: No Hx Alcohol Use: No Hx Substance Use: No Hx Substance Use Treatment: No Hx Depression: No Hx Physical Abuse: No Hx Emotional Abuse: No Hx Suspected Abuse: No - Activities of Daily Living Patient Lives Alone: No - Female History Patient is a Female of Child Bearing Age (10 -59 yrs old): No Patient : No Family Medical History - Family History Mother Family History: No Known Living Status: Hx Family Hypertension: Yes - mom Hx Family Diabetes: Yes Hx Family Cancer: Yes - dad-kidney Father Family History: No Known Living Status: Hx Family Hypertension: Yes Hx Family Cancer: Yes Hx Family;Other: dialysis towards end of life Physical Exam - Physical Exam General Appearance: Alert, Comfortable, No apparent distress Eyes, Ears, Nose, Throat Exam: PERRL/EOMI, normal ENT inspection Neck: non-tender, full range of motion, supple Cardiovascular/Chest: normal peripheral pulses, regular rate, rhythm, no murmur Respiratory: chest non-tender, lungs clear, normal breath sounds Gastrointestinal/Abdominal: normal bowel sounds, non tender, soft, no organomegaly Back Exam: no CVA tenderness, no vertebral tenderness Extremity: normal range of motion, non-tender Mental Status: alert, oriented x 3 video production assistant Exam: normal hearing, normal speech, PERRL Coordination/Gait: negative Romberg's sign Motor/Sensory: no motor deficit, no sensory deficit, no pronator drift Skin Exam: warm/dry Lymphatic: no adenopathy Progress - Progress Progress: 07/05/17 12:04 Vital Signs - 8 hr 07/05/17 11:20 Temperature 98.3 F Pulse Rate [ 89 pulse ox] Respiratory 20 Rate Blood Pressure 125/87 [right arm] O2 Sat by Pulse 95 Oximetry Departure - Departure Clinical Impression: Migraine Qualifiers: Migraine type: without aura Status migrainosus presence: without status migrainosus Intractability: not intractable Qualified Code(s): G43.009 - Migraine without aura, not intractable, without status migrainosus Time of Disposition: 13:27 Disposition: Discharge to Home or Self Care Departure Forms: ED Discharge - Pt. Copy, Patient Portal Self Enrollment Instructions: Migraine Headaches (Alternative Therapy), Migraine -- Adult, DI for Migraine Referrals: Belinda Velez NP [Primary Care Provider] - 1-2 Weeks Prescriptions: Baclofen 20 mg PO BID #30 tab Promethazine Tab [Phenergan Tablet] 25 mg PO .Q4H PRN #30 tab PRN Reason: Nausea Topiramate [Topiramate ER] 25 mg PO DAILY #30 cap Home Medications: Ambulatory Orders Cyclobenzaprine HCl [Flexeril] 20 mg PO BEDTIME 06/03/15 Estradiol [Estrace] 1 mg PO BEDTIME 06/03/15 Lisinopril 20 mg PO DAILY 06/03/15 Sumatriptan Succinate 50 mg PO DAILY PRN 06/03/15 Diltiazem HCl 30 mg PO BID 12/28/15 Potassium Chloride Tab [Micro-K] 10 meq PO DAILY 12/28/15 QUEtiapine FUMARATE [SEROquel] 250 mg PO BEDTIME 01/06/17 Cyclobenzaprine HCl 10 mg PO DAILY 05/21/17 Simvastatin 10 mg PO BEDTIME 05/21/17 Sucralfate 1 gm PO QID 05/21/17 cloNAZepam [KlonoPIN] 1.5 mg PO BEDTIME 05/21/17 B-Complex W/Biotin & Folic Aci [Super B-Complex] 2 tab PO DAILY 07/03/17 Black Pepper-Turmeric [Turmeric Curcumin Complex 500-3 mg] 1 cap PO BID Multiple Vitamins W/ Minerals [Alive Once Daily Womens U] 1 tab PO DAILY Oral Electrolytes [Thermotabs] 1 tab PO DAILY 07/03/17 Potassium Chloride [Micro-K] 20 meq PO BEDTIME 07/03/17 Propranolol HCl [Inderal] 40 mg PO BID 07/03/17 Sulfa/Trimeth 800/160 (Ds) Tab [Bactrim DS Tab] 1 ea PO Q12HR #20 tab 07/03/17 Baclofen 20 mg PO BID #30 tab 07/05/17 Promethazine Tab [Phenergan Tablet] 25 mg PO .Q4H PRN #30 tab 07/05/17 Topiramate [Topiramate ER] 25 mg PO DAILY #30 cap 07/05/17 Additional Instructions: Follow up with primary Md 06 Jul 2017
[2017-07-05] MEDS ORDERED: KETOROLAC TROMETHAMINE INJ 30 MG/ML VIAL IV ONE (12:04)
[2017-07-05] MEDS ORDERED: METOCLOPRAMIDE HCL INJ 10 MG/2 ML VIAL IV ONE (12:04)
[2017-07-05] MEDS ORDERED: DEXAMETHASONE INJ 4 MG/ML VIAL IV ONE (12:04)
[2017-07-05 13:58] VITALS: BP 126/90; O2SAT 99
== END 2017-07-05 13:50 | disposition home or self-care (01) ==
LOC: ER 10:20
DX: G43.009 Migraine without aura, not intractable, without status migrainosus (principal); I10 Essential (primary) hypertension; Z79.899 Other long term (current) drug therapy
CPT/HCPCS: J1100; J1885; J2765

== ENCOUNTER → 2017-07-18 | Outpatient (CLI) | payer OTHER | LOC: YCFC.O 11:08 | PROVIDERS: ATTEND Nurse Practitioner Family | DX: R30.0 Dysuria (principal) ==

== ENCOUNTER 2017-07-29 08:42 | Emergency (ER) | payer OTHER ==
[2017-07-29 09:10] VITALS: TEMP 97.9; O2SAT 98
[2017-07-29] MEDS ORDERED: HYDROcodone 7.5MG/APAP 325MG 1 EA TAB PO ONE (10:09)
[2017-07-29] MEDS ORDERED: KETOROLAC TROMETHAMINE INJ 30 MG/ML VIAL IV ONE (10:09)
[2017-07-29] MEDS ORDERED: SODIUM CHLORIDE 0.9% 1000ML 1,000 ML IVS ONE (10:09)
[2017-07-29] MEDS ORDERED: PROMETHAZINE HCL INJ 25 MG in SODIUM CHLORIDE 0.9% 50ML 50 ML IVPB ONE (10:09)
[2017-07-29] MEDS ORDERED: predniSONE 20 MG TAB PO ONE (10:10)
[2017-07-29] MEDS ORDERED: PROMETHAZINE HCL INJ 25 MG/ML VIAL ONE (10:19)
[2017-07-29] MEDS ORDERED: SODIUM CHLORIDE 0.9% 50ML 50 ML ONE (10:20)
--- NOTE | 2017-07-29 10:47 | ED.PDOC ---
History of Present Illness - General Chief Complaint: Headache Stated Complaint: migraine and poss uti Time Seen by Provider: 07/29/17 08:48 Source: patient Exam Limitations: no limitations - History of Present Illness Initial Comments: the patient is a 61-year-old female presenting to the emergency room secondary to recurrent migraine headache that started back yesterday. She has some mild nausea as well and has had some urinary frequency and mild lower abdominal cramping. She does often get nausea with her headaches. She has had significant hyponatremia in the past as well as a recent urinary tract infection. No definite fevers. No syncope or near syncope. She has had a head CT within the last couple of years. Timing/Duration: unsure Severity: moderate Improving Factors: nothing Worsening Factors: nothing Associated Symptoms: headaches, loss of appetite, malaise, nausea/vomiting Allergies/Adverse Reactions: Allergies Penicillins Allergy (Verified 07/29/17 09:00) Other Causes a rash and throat to swell horse serum Allergy (Uncoded 07/29/17 09:00) Unknown Home Medications: Ambulatory Orders Cyclobenzaprine HCl [Flexeril] 20 mg PO BEDTIME 06/03/15 Estradiol [Estrace] 1 mg PO BEDTIME 06/03/15 Lisinopril 20 mg PO DAILY 06/03/15 Sumatriptan Succinate 50 mg PO DAILY PRN 06/03/15 Diltiazem HCl 30 mg PO BID 12/28/15 Potassium Chloride Tab [Micro-K] 10 meq PO DAILY 12/28/15 QUEtiapine FUMARATE [SEROquel] 250 mg PO BEDTIME 01/06/17 Cyclobenzaprine HCl 10 mg PO DAILY 05/21/17 Simvastatin 10 mg PO BEDTIME 05/21/17 Sucralfate 1 gm PO QID 05/21/17 cloNAZepam [KlonoPIN] 1.5 mg PO BEDTIME 05/21/17 B-Complex W/Biotin & Folic Aci [Super B-Complex] 2 tab PO DAILY 07/03/17 Black Pepper-Turmeric [Turmeric Curcumin Complex 500-3 mg] 1 cap PO BID Multiple Vitamins W/ Minerals [Alive Once Daily Womens U] 1 tab PO DAILY Oral Electrolytes [Thermotabs] 1 tab PO DAILY 07/03/17 Potassium Chloride [Micro-K] 20 meq PO BEDTIME 07/03/17 Propranolol HCl [Inderal] 40 mg PO BID 07/03/17 Sulfa/Trimeth 800/160 (Ds) Tab [Bactrim DS Tab] 1 ea PO Q12HR #20 tab 07/03/17 Baclofen 20 mg PO BID #30 tab 07/05/17 Promethazine Tab [Phenergan Tablet] 25 mg PO .Q4H PRN #30 tab 07/05/17 Topiramate [Topiramate ER] 25 mg PO DAILY #30 cap 07/05/17 Famotidine 20 mg PO BID #60 tab 07/29/17 Review of Systems - Review of Systems Constitutional: States: malaise EENTM: States: no symptoms reported Respiratory: States: no symptoms reported Cardiology: States: no symptoms reported Gastrointestinal/Abdominal: States: see HPI Genitourinary: States: see HPI Musculoskeletal: States: no symptoms reported Skin: States: no symptoms reported Neurological: States: headache Endocrine: States: no symptoms reported All other Systems: No Change from Baseline Past Medical History (General) - Patient Medical History Hx Seizures: No Hx Stroke: No Hx Dementia: No Hx Asthma: No Hx of COPD: No Hx Cardiac Disorders: Yes Hx Congestive Heart Failure: No Hx Pacemaker: No Hx Hypertension: Yes Hx Thyroid Disease: No Hx Diabetes: No Hx Gastroesophageal Reflux: No Hx Renal Disease: No Hx Cancer: No Hx of HIV: No Hx Hepatitis C: No Hx MRSA: No MRSA Source:: nose - Vaccination History Hx Tetanus, Diphtheria Vaccination: No Hx Influenza Vaccination: Yes Hx Pneumococcal Vaccination: No - Social History Hx Tobacco Use: No Hx Chewing Tobacco Use: No Hx Alcohol Use: No Hx Substance Use: No Hx Substance Use Treatment: No Hx Depression: No Hx Physical Abuse: No Hx Emotional Abuse: No Hx Suspected Abuse: No - Female History Patient is a Female of Child Bearing Age (10 -59 yrs old): No Patient : No Family Medical History - Family History Mother Family History: No Known Living Status: Hx Family Hypertension: Yes - mom Hx Family Diabetes: Yes Hx Family Cancer: Yes - dad-kidney Father Family History: No Known Living Status: Hx Family Hypertension: Yes Hx Family Cancer: Yes Hx Family;Other: dialysis towards end of life Physical Exam - Physical Exam General Appearance: Alert, Comfortable, No apparent distress Eye Exam: bilateral normal Ears, Nose, Throat: hearing grossly normal, normal ENT inspection, normal pharynx Neck: full range of motion, supple Respiratory: lungs clear, normal breath sounds, no respiratory distress, no accessory muscle use Cardiovascular/Chest: normal peripheral pulses, regular rate, rhythm, no edema Peripheral Pulses: radial,right: 2+, radial,left: 2+, dorsalis pedis,right: 2+, dorsalis pedis,left: 2+ Gastrointestinal/Abdominal: non tender, soft Rectal Exam: deferred Back Exam: normal inspection, no CVA tenderness Extremity: normal range of motion, non-tender, normal inspection, no pedal edema , normal capillary refill Neurologic: chemist steroids II-XII nml as tested, alert, normal mood/affect, oriented x 3 Skin Exam: normal color Comments: Vital Signs - 24 hr 07/29/17 09:01 Temperature 97.9 F Pulse Rate [ 93 H monitor] Respiratory 20 Rate Blood Pressure 124/77 [LA] O2 Sat by Pulse 98 Oximetry Progress - Progress Progress: 07/29/17 10:49 the patient is a 61-year-old female presenting to emergency room secondary to recurrence of her migraine headaches as well as some abdominal discomfort and some urinary symptoms. She does not appear to have any recurrence of the urinary tract infection at this time. She is mildly dehydrated and has received a liter of fluids. She may be having a significant gastritis related to extended antibiotic use. The patient is going to be placed on Pepcid twice daily for the next month. For the migraine headache the patient has had the fluids as well as dose of pain medication and nausea medication and an anti-inflammatory. She needs to keep follow-up with her primary care doctor in the coming week. ER warnings were given for any significant worsening. Laboratory work does look reassuring at this time. - Results/Orders Results/Orders: 07/29/17 10:09 Sodium Chloride 0.9% 1000ML [Ns 1000 ml] 1,000 ml IVS ONCE Laboratory Results - last 24 hr 07/29/17 07/29/17 07/29/17 09:14 09:43 09:43 WBC 5.6 RBC 4.01 L Hgb 12.9 Hct 37.8 MCV 94.1 MCH 32.1 H MCHC 34.2 RDW 13.0 Plt Count 210 MPV 8.7 Absolute Neuts (auto) 3.30 Absolute Lymphs (auto) 1.70 Absolute Monos (auto) 0.50 Absolute Eos (auto) 0.10 Absolute Basos (auto) 0.00 Neutrophils % 59.1 Lymphocytes % 29.8 Monocytes % 8.7 Eosinophils % 1.8 Basophils % 0.6 Sodium 136 Potassium 3.4 L Chloride 105 Carbon Dioxide 23 Anion Gap 11.4 L BUN 8 Creatinine 0.96 BUN/Creatinine Ratio 8.3 L Random Glucose 113 H Serum Osmolality 271.1 L Calcium 8.9 Magnesium 1.8 Total Bilirubin 0.5 AST 24 ALT 18 Alkaline Phosphatase 40 L Serum Total Protein 7.0 Albumin 3.8 Globulin 3.2 Albumin/Globulin Ratio 1.2 Amylase 36 Lipase 19 L Urine Color Yellow Urine Appearance Clear Urine pH 7.0 Ur Specific [place] 1.015 Urine Protein Negative Urine Glucose (UA) Negative Urine Ketones Negative Urine Blood Trace-intact H Urine Nitrite Negative Urine Bilirubin Negative Urine Urobilinogen 0.2 Ur Leukocyte Esterase Negative Urine RBC 0 Urine WBC 0 Ur Epithelial Cells 1-3 Urine Bacteria 0 - EKG/XRAY/CT CT Ordered: No CT Interpretation Call Back: No Departure - Departure Clinical Impression: Migraine headache Qualifiers: Migraine type: unspecified Status migrainosus presence: without status migrainosus Intractability: not intractable Qualified Code(s): G43.909 - Migraine, unspecified, not intractable, without status migrainosus Gastritis Qualifiers: Gastritis type: unspecified gastritis Chronicity: acute Gastritis bleeding: without bleeding Qualified Code(s): K29.00 - Acute gastritis without bleeding Disposition: Discharge to Home or Self Care Condition: Fair Departure Forms: ED Discharge - Pt. Copy, Patient Portal Self Enrollment Instructions: DI for Headache Diet: bland diet Activity: increase activity as tolerated Referrals: Belinda Velez NP [Primary Care Provider] - 1-5 Days Prescriptions: Famotidine 20 mg PO BID #60 tab Home Medications: Ambulatory Orders Cyclobenzaprine HCl [Flexeril] 20 mg PO BEDTIME 06/03/15 Estradiol [Estrace] 1 mg PO BEDTIME 06/03/15 Lisinopril 20 mg PO DAILY 06/03/15 Sumatriptan Succinate 50 mg PO DAILY PRN 06/03/15 Diltiazem HCl 30 mg PO BID 12/28/15 Potassium Chloride Tab [Micro-K] 10 meq PO DAILY 12/28/15 QUEtiapine FUMARATE [SEROquel] 250 mg PO BEDTIME 01/06/17 Cyclobenzaprine HCl 10 mg PO DAILY 05/21/17 Simvastatin 10 mg PO BEDTIME 05/21/17 Sucralfate 1 gm PO QID 05/21/17 cloNAZepam [KlonoPIN] 1.5 mg PO BEDTIME 05/21/17 B-Complex W/Biotin & Folic Aci [Super B-Complex] 2 tab PO DAILY 07/03/17 Black Pepper-Turmeric [Turmeric Curcumin Complex 500-3 mg] 1 cap PO BID Multiple Vitamins W/ Minerals [Alive Once Daily Womens U] 1 tab PO DAILY Oral Electrolytes [Thermotabs] 1 tab PO DAILY 07/03/17 Potassium Chloride [Micro-K] 20 meq PO BEDTIME 07/03/17 Propranolol HCl [Inderal] 40 mg PO BID 07/03/17 Sulfa/Trimeth 800/160 (Ds) Tab [Bactrim DS Tab] 1 ea PO Q12HR #20 tab 07/03/17 Baclofen 20 mg PO BID #30 tab 07/05/17 Promethazine Tab [Phenergan Tablet] 25 mg PO .Q4H PRN #30 tab 07/05/17 Topiramate [Topiramate ER] 25 mg PO DAILY #30 cap 07/05/17 Famotidine 20 mg PO BID #60 tab 07/29/17 Additional Instructions: the patient is a 61-year-old female presenting to emergency room secondary to recurrence of her migraine headaches as well as some abdominal discomfort and some urinary symptoms. She does not appear to have any recurrence of the urinary tract infection at this time. She is mildly dehydrated and has received a liter of fluids. She may be having a significant gastritis related to extended antibiotic use. The patient is going to be placed on Pepcid twice daily for the next month. For the migraine headache the patient has had the fluids as well as dose of pain medication and nausea medication and an anti-inflammatory. She needs to keep follow-up with her primary care doctor in the coming week. ER warnings were given for any significant worsening. Laboratory work does look reassuring at this time.
[2017-07-29 11:11] VITALS: BP 148/99
== END 2017-07-29 11:14 | disposition home or self-care (01) ==
LOC: ER 08:42
DX: G43.909 Migraine, unspecified, not intractable, without status migrainosus (principal); K29.00 Acute gastritis without bleeding; I51.9 Heart disease, unspecified; I10 Essential (primary) hypertension; Z79.899 Other long term (current) drug therapy; Z88.2 Allergy status to sulfonamides
CPT/HCPCS: 80053; 81001; 82150; 83690; 83735; 85025; A4216; J1885; J2550; J7030; J7512

== ENCOUNTER 2017-08-01 13:58 | Emergency (ER) | payer OTHER ==
[2017-08-01 15:01] VITALS: TEMP 98.4
--- NOTE | 2017-08-01 16:08 | ED.PDOC ---
History of Present Illness - General Chief Complaint: General Stated Complaint: dizziness Time Seen by Provider: 08/01/17 16:04 Source: patient Exam Limitations: no limitations Additional Information: PT STATES SHE MIGHT HAVE TAKEN THE WRONG MEDICATIONS TOGETHER. WAS RECENTLY STARTED ON KEFLEX FOR UTI THEN A SULFA DRUG WAS ADDED B/C SHE WAS NOT FEELING BETTER. NOW C/O DIZZINESS AND NOT FEELING WELL. SX'S RESOLVED SPONTANEOUSLY. FEELS MUCH BETTER. - History of Present Illness Severity: moderate Improving Factors: nothing Worsening Factors: other - SPONTANEOUS Associated Symptoms: denies symptoms Allergies/Adverse Reactions: Allergies Penicillins Allergy (Verified 08/01/17 15:01) Other Causes a rash and throat to swell horse serum Allergy (Uncoded 08/01/17 15:01) Unknown Home Medications: Ambulatory Orders Cyclobenzaprine HCl [Flexeril] 20 mg PO BEDTIME 06/03/15 Estradiol [Estrace] 1 mg PO BEDTIME 06/03/15 Lisinopril 20 mg PO DAILY 06/03/15 Sumatriptan Succinate 50 mg PO DAILY PRN 06/03/15 Diltiazem HCl 30 mg PO BID 12/28/15 Potassium Chloride Tab [Micro-K] 10 meq PO DAILY 12/28/15 QUEtiapine FUMARATE [SEROquel] 250 mg PO BEDTIME 01/06/17 Cyclobenzaprine HCl 10 mg PO DAILY 05/21/17 Simvastatin 10 mg PO BEDTIME 05/21/17 Sucralfate 1 gm PO QID 05/21/17 cloNAZepam [KlonoPIN] 1.5 mg PO BEDTIME 05/21/17 B-Complex W/Biotin & Folic Aci [Super B-Complex] 2 tab PO DAILY 07/03/17 Black Pepper-Turmeric [Turmeric Curcumin Complex 500-3 mg] 1 cap PO BID Multiple Vitamins W/ Minerals [Alive Once Daily Womens U] 1 tab PO DAILY Oral Electrolytes [Thermotabs] 1 tab PO DAILY 07/03/17 Potassium Chloride [Micro-K] 20 meq PO BEDTIME 07/03/17 Propranolol HCl [Inderal] 40 mg PO BID 07/03/17 Sulfa/Trimeth 800/160 (Ds) Tab [Bactrim DS Tab] 1 ea PO Q12HR #20 tab 07/03/17 Baclofen 20 mg PO BID #30 tab 07/05/17 Promethazine Tab [Phenergan Tablet] 25 mg PO .Q4H PRN #30 tab 07/05/17 Topiramate [Topiramate ER] 25 mg PO DAILY #30 cap 07/05/17 Famotidine 20 mg PO BID #60 tab 07/29/17 Review of Systems - Review of Systems Constitutional: Denies: chills, fever EENTM: States: no symptoms reported Respiratory: Denies: cough, short of breath, wheezing Cardiology: Denies: chest pain, palpitations, syncope Gastrointestinal/Abdominal: Denies: abdominal pain, nausea, vomiting Genitourinary: Denies: dysuria, frequency, hematuria Musculoskeletal: States: no symptoms reported Skin: States: no symptoms reported Neurological: Denies: numbness, tingling, weakness Endocrine: Denies: no symptoms reported Hematologic/Lymphatic: Denies: no symptoms reported Past Medical History (General) - Patient Medical History Hx Seizures: No Hx Stroke: No Hx Dementia: No Hx Asthma: No Hx of COPD: No Hx Cardiac Disorders: Yes Hx Congestive Heart Failure: No Hx Pacemaker: No Hx Hypertension: Yes Hx Thyroid Disease: No Hx Diabetes: No Hx Gastroesophageal Reflux: No Hx Renal Disease: No Hx Cancer: No Hx of HIV: No Hx Hepatitis C: No Hx MRSA: No Hx Other PMH: Yes - BIPOLAR MRSA Source:: nose Surgical History: Hysterectomy, other - Vaccination History Hx Tetanus, Diphtheria Vaccination: No Hx Influenza Vaccination: Yes Hx Pneumococcal Vaccination: No - Social History Hx Tobacco Use: No Hx Chewing Tobacco Use: No Hx Alcohol Use: No Hx Substance Use: No Hx Substance Use Treatment: No Hx Depression: No Hx Physical Abuse: No Hx Emotional Abuse: No Hx Suspected Abuse: No - Female History Patient : No Family Medical History - Family History Mother Family History: No Known Living Status: Hx Family Hypertension: Yes - mom Hx Family Diabetes: Yes Hx Family Cancer: Yes - dad-kidney Father Family History: No Known Living Status: Hx Family Hypertension: Yes Hx Family Cancer: Yes Hx Family;Other: dialysis towards end of life Physical Exam - Physical Exam General Appearance: Alert, Comfortable, No apparent distress, Obese Eye Exam: bilateral normal Ears, Nose, Throat: hearing grossly normal, normal ENT inspection Neck: full range of motion, supple, normal inspection Respiratory: lungs clear, normal breath sounds, no respiratory distress Cardiovascular/Chest: regular rate, rhythm, no murmur Gastrointestinal/Abdominal: normal bowel sounds, non tender, soft, no organomegaly Back Exam: normal inspection Extremity: normal range of motion, non-tender Neurologic: no motor/sensory deficits, alert Skin Exam: normal color, warm/dry Lymphatic: no adenopathy Progress - Progress Progress: 08/01/17 17:20 FEELS WELL WANTS TO GO HOME. - EKG/XRAY/CT EKG: Sinus - RATE 88, LAD, NL INTERVALS, , nonspecific ST T wave Chg - NAIP, , Unchanged from - 02/09/2016 Departure - Departure Clinical Impression: Medication side effect Qualifiers: Encounter type: initial encounter Qualified Code(s): T88.7XXA - Unspecified adverse effect of drug or medicament, initial encounter UTI (urinary tract infection) Qualifiers: Urinary tract infection type: acute cystitis Hematuria presence: without hematuria Qualified Code(s): N30.00 - Acute cystitis without hematuria ICD-10 Supporting Text: PARTIALLY TREATED UTI Disposition: Discharge to Home or Self Care Condition: Good Departure Forms: ED Discharge - Pt. Copy, Patient Portal Self Enrollment Instructions: Urinary Tract Infection Referrals: Belinda Velez, [employer] OPERATOR [Primary Care Provider] - 1-2 Weeks Home Medications: Ambulatory Orders Cyclobenzaprine HCl [Flexeril] 20 mg PO BEDTIME 06/03/15 Estradiol [Estrace] 1 mg PO BEDTIME 06/03/15 Lisinopril 20 mg PO DAILY 06/03/15 Sumatriptan Succinate 50 mg PO DAILY PRN 06/03/15 Diltiazem HCl 30 mg PO BID 12/28/15 Potassium Chloride Tab [Micro-K] 10 meq PO DAILY 12/28/15 QUEtiapine FUMARATE [SEROquel] 250 mg PO BEDTIME 01/06/17 Cyclobenzaprine HCl 10 mg PO DAILY 05/21/17 Simvastatin 10 mg PO BEDTIME 05/21/17 Sucralfate 1 gm PO QID 05/21/17 cloNAZepam [KlonoPIN] 1.5 mg PO BEDTIME 05/21/17 B-Complex W/Biotin & Folic Aci [Super B-Complex] 2 tab PO DAILY 07/03/17 Black Pepper-Turmeric [Turmeric Curcumin Complex 500-3 mg] 1 cap PO BID Multiple Vitamins W/ Minerals [Alive Once Daily Womens U] 1 tab PO DAILY Oral Electrolytes [Thermotabs] 1 tab PO DAILY 07/03/17 Potassium Chloride [Micro-K] 20 meq PO BEDTIME 07/03/17 Propranolol HCl [Inderal] 40 mg PO BID 07/03/17 Sulfa/Trimeth 800/160 (Ds) Tab [Bactrim DS Tab] 1 ea PO Q12HR #20 tab 07/03/17 Baclofen 20 mg PO BID #30 tab 07/05/17 Promethazine Tab [Phenergan Tablet] 25 mg PO .Q4H PRN #30 tab 07/05/17 Topiramate [Topiramate ER] 25 mg PO DAILY #30 cap 07/05/17 Famotidine 20 mg PO BID #60 tab 07/29/17
[2017-08-01 16:25] VITALS: O2SAT 100
[2017-08-01 17:40] VITALS: BP 113/93
== END 2017-08-01 17:30 | disposition home or self-care (01) ==
LOC: ER 13:58
DX: N30.00 Acute cystitis without hematuria (principal); T36.8X5A Adverse effect of other systemic antibiotics, initial encounter; R42 Dizziness and giddiness; I10 Essential (primary) hypertension; I51.9 Heart disease, unspecified; F31.9 Bipolar disorder, unspecified; Z79.899 Other long term (current) drug therapy; Z88.0 Allergy status to penicillin

== ENCOUNTER → 2017-08-03 | Outpatient (CLI) | payer OTHER ==
--- NOTE | 2017-08-03 22:00 | RAD ---
EXAM DESCRIPTION: Abdomen Flat Upright CLINICAL HISTORY: 61 years Female, lower abdominal pain COMPARISON: Previous study November 10, 2015 FINDINGS: Calcification in the right paraspinous region could be within the right renal pelvis. Degenerative levoscoliosis of lumbar spine is seen with multilevel spurring. Facet degenerative changes are seen. Upright view the abdomen shows no free air. No worrisome air-fluid levels. Surgical susanna around the stomach are present. Compared to previous study, no significant change is evident. Supine view shows calcifications in the pelvis probably phleboliths. If renal or ureteral stone is suspected CT could be performed for confirmation. Patient previous CT abdomen April 02, 2015 which showed calculus in the central right kidney probably in the renal pelvis. IMPRESSION: Large stone in the right renal pelvis measuring 1.7 cm in greatest dimension. Severe degenerative changes of the lumbar spine with levoscoliosis. Unremarkable bowel gas pattern. Electronically signed by: Mal Barker MD 08/03/2017 9:59 PM CDT
== END ==
LOC: YCFC.O 15:37
PROVIDERS: ATTEND Nurse Practitioner Family
DX: R10.30 Lower abdominal pain, unspecified (principal); R63.4 Abnormal weight loss; N20.0 Calculus of kidney; R53.83 Other fatigue; R21 Rash and other nonspecific skin eruption

== ENCOUNTER → 2017-08-25 | Outpatient (CLI) | payer OTHER | LOC: YCFC.O 14:23 | PROVIDERS: ATTEND Nurse Practitioner Family | DX: E87.6 Hypokalemia (principal) ==

== ENCOUNTER → 2017-09-20 | Outpatient (CLI) | payer OTHER | LOC: YCFC.O 11:58 | PROVIDERS: ATTEND Nurse Practitioner Family | DX: R30.0 Dysuria (principal) ==

== ENCOUNTER 2017-10-16 17:05 | Emergency (ER) | payer OTHER ==
[2017-10-16] MEDS ORDERED: SODIUM CHLORIDE 0.9% 1000ML 1,000 ML IVS ONE (19:20)
[2017-10-16] MEDS ORDERED: KETOROLAC TROMETHAMINE INJ 30 MG/ML VIAL IV ONE (19:20)
[2017-10-16] MEDS ORDERED: HYDROcodone 5MG/APAP 325MG 1 EA TAB PO ONE (19:21)
[2017-10-16] MEDS ORDERED: PROMETHAZINE HCL INJ 12.5 MG in SODIUM CHLORIDE 0.9% 50ML 50 ML IVPB ONE (19:21)
[2017-10-16] MEDS ORDERED: PROMETHAZINE HCL INJ 25 MG/ML VIAL ONE (19:31)
[2017-10-16] MEDS ORDERED: SODIUM CHLORIDE 0.9% 50ML 50 ML ONE (19:32)
[2017-10-16] MEDS ORDERED: CIPROFLOXACIN 500 MG TAB PO ONE (19:40)
[2017-10-16] MEDS ORDERED: FLUCONAZOLE 100 MG TAB PO ONE (19:40)
--- NOTE | 2017-10-16 20:01 | ED.PDOC ---
History of Present Illness - General Chief Complaint: Headache Stated Complaint: migraine, headache, thinks she has UTI Time Seen by Provider: 10/16/17 17:10 Source: patient Exam Limitations: no limitations - History of Present Illness Initial Comments: the patient is a 62-year-old female presenting to emergency room secondary to a recurrence of her typical migraine headaches along with symptoms of urinary tract infection. She has had frequent issues with both in the past and has had previous extensive workups for both. Headache is typical with some nausea and mild photo and phonophobia. No altered mental status. Headache is diffuse. No syncope or near-syncope. Urinary symptoms have been present for about a week including dysuria and frequency. Timing/Duration: unsure Severity: moderate Improving Factors: nothing Worsening Factors: nothing Associated Symptoms: headaches, loss of appetite, malaise Allergies/Adverse Reactions: Allergies Penicillins Allergy (Verified 10/16/17 19:19) Other Causes a rash and throat to swell horse serum Allergy (Uncoded 10/16/17 19:19) Unknown Home Medications: Ambulatory Orders Cyclobenzaprine HCl [Flexeril] 20 mg PO BEDTIME 06/03/15 Estradiol [Estrace] 1 mg PO BEDTIME 06/03/15 Lisinopril 20 mg PO DAILY 06/03/15 Sumatriptan Succinate 50 mg PO DAILY PRN 06/03/15 Diltiazem HCl 30 mg PO BID 12/28/15 Potassium Chloride Tab [Micro-K] 10 meq PO DAILY 12/28/15 QUEtiapine FUMARATE [SEROquel] 250 mg PO BEDTIME 01/06/17 Cyclobenzaprine HCl 10 mg PO DAILY 05/21/17 Simvastatin 10 mg PO BEDTIME 05/21/17 Sucralfate 1 gm PO QID 05/21/17 cloNAZepam [KlonoPIN] 1.5 mg PO BEDTIME 05/21/17 B-Complex W/Biotin & Folic Aci [Super B-Complex] 2 tab PO DAILY 07/03/17 Black Pepper-Turmeric [Turmeric Curcumin Complex 500-3 mg] 1 cap PO BID Multiple Vitamins W/ Minerals [Alive Once Daily Womens U] 1 tab PO DAILY Oral Electrolytes [Thermotabs] 1 tab PO DAILY 07/03/17 Potassium Chloride [Micro-K] 20 meq PO BEDTIME 07/03/17 Propranolol HCl [Inderal] 40 mg PO BID 07/03/17 Sulfa/Trimeth 800/160 (Ds) Tab [Bactrim DS Tab] 1 ea PO Q12HR #20 tab 07/03/17 Baclofen 20 mg PO BID #30 tab 07/05/17 Promethazine Tab [Phenergan Tablet] 25 mg PO .Q4H PRN #30 tab 07/05/17 Topiramate [Topiramate ER] 25 mg PO DAILY #30 cap 07/05/17 Famotidine 20 mg PO BID #60 tab 07/29/17 Review of Systems - Review of Systems Constitutional: States: malaise EENTM: States: no symptoms reported Respiratory: States: no symptoms reported Cardiology: States: no symptoms reported Gastrointestinal/Abdominal: States: nausea Genitourinary: States: see HPI Musculoskeletal: States: no symptoms reported Skin: States: no symptoms reported Neurological: States: headache Endocrine: States: no symptoms reported All other Systems: No Change from Baseline Past Medical History (General) - Patient Medical History Hx Seizures: No Hx Stroke: No Hx Dementia: No Hx Asthma: No Hx of COPD: No Hx Cardiac Disorders: Yes Hx Congestive Heart Failure: No Hx Pacemaker: No Hx Hypertension: Yes Hx Thyroid Disease: No Hx Diabetes: No Hx Gastroesophageal Reflux: No Hx Renal Disease: No Hx Cancer: No Hx of HIV: No Hx Hepatitis C: No Hx MRSA: No MRSA Source:: nose Surgical History: Hysterectomy - Vaccination History Hx Tetanus, Diphtheria Vaccination: No Hx Influenza Vaccination: Yes Hx Pneumococcal Vaccination: No - Social History Hx Tobacco Use: No Hx Chewing Tobacco Use: No Hx Alcohol Use: No Hx Substance Use: No Hx Substance Use Treatment: No Hx Depression: Yes Hx Physical Abuse: No Hx Emotional Abuse: No Hx Suspected Abuse: No - Female History Patient : No Family Medical History - Family History Mother Family History: No Known Living Status: Hx Family Hypertension: Yes - mom Hx Family Diabetes: Yes Hx Family Cancer: Yes - dad-kidney Father Family History: No Known Living Status: Hx Family Hypertension: Yes Hx Family Cancer: Yes Hx Family;Other: dialysis towards end of life Physical Exam - Physical Exam General Appearance: Alert, No apparent distress Eye Exam: bilateral normal Ears, Nose, Throat: hearing grossly normal, normal ENT inspection, normal pharynx Neck: non-tender, full range of motion, supple Respiratory: lungs clear, normal breath sounds, no respiratory distress, no accessory muscle use Cardiovascular/Chest: normal peripheral pulses, regular rate, rhythm, no edema Peripheral Pulses: radial,right: 2+, radial,left: 2+, dorsalis pedis,right: 2+, dorsalis pedis,left: 2+ Gastrointestinal/Abdominal: non tender, soft Rectal Exam: deferred Back Exam: no CVA tenderness, no vertebral tenderness Extremity: non-tender, normal inspection, no pedal edema, normal capillary refill Neurologic: applied technologist II-XII nml as tested, no motor/sensory deficits - no new changes , alert, normal mood/affect, oriented x 3 Skin Exam: normal color Comments: Vital Signs - 24 hr 10/16/17 19:12 Temperature 97.6 F Pulse Rate [ 86 monitor] Respiratory 18 Rate Blood Pressure 153/84 [Left Arm] O2 Sat by Pulse 99 Oximetry Progress - Progress Progress: 10/16/17 20:02 the patient's 62-year-old female presenting to the emergency room secondary to a recurrent migraine headache as well as a urinary tract infection and yeast infection. The patient has received IV fluids as well as several pain medications. She is also received a dose of Diflucan and a dose of ciprofloxacin. She'll be placed on ciprofloxacin for 5 days twice daily. Urine culture is being performed. She does need to follow up with her primary care doctor later this week for a repeat urinalysis and test of cure. ER warnings were given for any significant worsening. - Results/Orders Results/Orders: 10/16/17 19:09 URINE CULTURE W/COLONY COUNT Stat Laboratory Results - last 24 hr 10/16/17 19:09 Urine Color Yellow Urine Appearance Sl cloudy Urine pH 5.0 Ur Specific [place] 1.015 Urine Protein Negative Urine Glucose (UA) Negative Urine Ketones Negative Urine Blood Trace-lysed H Urine Nitrite Negative Urine Bilirubin Negative Urine Urobilinogen 0.2 Ur Leukocyte Esterase Small H Urine RBC 3-5 H Urine WBC Tntc H Ur Epithelial Cells 5-10 Urine Bacteria 2+ H Urine Yeast 1+ budding H Departure - Departure Clinical Impression: Cystitis, Yeast infection Migraine Qualifiers: Migraine type: unspecified Status migrainosus presence: without status migrainosus Intractability: not intractable Qualified Code(s): G43.909 - Migraine, unspecified, not intractable, without status migrainosus Disposition: Discharge to Home or Self Care Condition: Fair Departure Forms: ED Discharge - Pt. Copy, Patient Portal Self Enrollment Instructions: DI for Headache, Urinary Tract Infection, Adult (DC), Yeast Infection (DC), Migraine Headache (DC) Diet: regular diet Activity: increase activity as tolerated Referrals: Belinda Velez, [facility] [employer] [Primary Care Provider] - 1-5 Days Home Medications: Ambulatory Orders Cyclobenzaprine HCl [Flexeril] 20 mg PO BEDTIME 06/03/15 Estradiol [Estrace] 1 mg PO BEDTIME 06/03/15 Lisinopril 20 mg PO DAILY 06/03/15 Sumatriptan Succinate 50 mg PO DAILY PRN 06/03/15 Diltiazem HCl 30 mg PO BID 12/28/15 Potassium Chloride Tab [Micro-K] 10 meq PO DAILY 12/28/15 QUEtiapine FUMARATE [SEROquel] 250 mg PO BEDTIME 01/06/17 Cyclobenzaprine HCl 10 mg PO DAILY 05/21/17 Simvastatin 10 mg PO BEDTIME 05/21/17 Sucralfate 1 gm PO QID 05/21/17 cloNAZepam [KlonoPIN] 1.5 mg PO BEDTIME 05/21/17 B-Complex W/Biotin & Folic Aci [Super B-Complex] 2 tab PO DAILY 07/03/17 Black Pepper-Turmeric [Turmeric Curcumin Complex 500-3 mg] 1 cap PO BID Multiple Vitamins W/ Minerals [Alive Once Daily Womens U] 1 tab PO DAILY Oral Electrolytes [Thermotabs] 1 tab PO DAILY 07/03/17 Potassium Chloride [Micro-K] 20 meq PO BEDTIME 07/03/17 Propranolol HCl [Inderal] 40 mg PO BID 07/03/17 Sulfa/Trimeth 800/160 (Ds) Tab [Bactrim DS Tab] 1 ea PO Q12HR #20 tab 07/03/17 Baclofen 20 mg PO BID #30 tab 07/05/17 Promethazine Tab [Phenergan Tablet] 25 mg PO .Q4H PRN #30 tab 07/05/17 Topiramate [Topiramate ER] 25 mg PO DAILY #30 cap 07/05/17 Famotidine 20 mg PO BID #60 tab 07/29/17 Additional Instructions: the patient's 62-year-old female presenting to the emergency room secondary to a recurrent migraine headache as well as a urinary tract infection and yeast infection. The patient has received IV fluids as well as several pain medications. She is also received a dose of Diflucan and a dose of ciprofloxacin. She'll be placed on ciprofloxacin for 5 days twice daily. Urine culture is being performed. She does need to follow up with her primary care doctor later this week for a repeat urinalysis and test of cure. ER warnings were given for any significant worsening. hold cholesterol medications while on antibiotics.
[2017-10-16] MEDS ORDERED: HYDROcodone 7.5MG/APAP 325MG 1 EA TAB PO ONE (21:01)
[2017-10-16 21:25] VITALS: BP 150/83; TEMP 96.9; O2SAT 100
== END 2017-10-16 21:20 | disposition home or self-care (01) ==
LOC: ER 17:05
DX: G43.909 Migraine, unspecified, not intractable, without status migrainosus (principal); N30.90 Cystitis, unspecified without hematuria; B37.9 Candidiasis, unspecified; I10 Essential (primary) hypertension; F32.9 Major depressive disorder, single episode, unspecified; Z79.899 Other long term (current) drug therapy; Z88.0 Allergy status to penicillin; Z88.8 Allergy status to other drugs, medicaments and biological substances
CPT/HCPCS: 81001; 87086; A4216; J1885; J2550; J7030

== ENCOUNTER 2017-10-17 13:04 | Emergency (ER) | payer OTHER ==
[2017-10-17] MEDS ORDERED: DEXAMETHASONE INJ 4 MG/ML VIAL IM ONE (13:31)
[2017-10-17] MEDS ORDERED: BUTORPHANOL TARTRATE 2 MG/ML VIAL IM ONE (13:31)
[2017-10-17] MEDS ORDERED: PROMETHAZINE HCL INJ 25 MG/ML VIAL IM ONE (13:31)
--- NOTE | 2017-10-17 13:31 | ED.PDOC ---
History of Present Illness - General Chief Complaint: Headache Stated Complaint: headache, uti Time Seen by Provider: 10/17/17 13:19 Source: patient Exam Limitations: no limitations - History of Present Illness Initial Comments: Sona Bonds 62 y/o female stated that she had dull generalized headache since yesterday afternoon and was seen ER had treatment stating headache not going away.Has history of migraines and had brain neuroimaging in the past which were normal stated same symptoms as previous headaches-photophobia,phonopsia ,feels nauseated.took her usual migraine medication not working. Denies fever,chills, neck pain or radiation,no double vision or blurry vision or weakness.Has Rx for her uti. Timing/Duration: other - see hpi Quality: moderate, constant Head Injury Location: global Recent Head Trauma: chronic headaches Improving Factors: nothing Worsening Factors: nothing Associated Symptoms: other - see hpi Allergies/Adverse Reactions: Allergies Penicillins Allergy (Verified 10/16/17 19:19) Other Causes a rash and throat to swell horse serum Allergy (Uncoded 10/16/17 19:19) Unknown Home Medications: Ambulatory Orders Cyclobenzaprine HCl [Flexeril] 20 mg PO BEDTIME 06/03/15 Estradiol [Estrace] 1 mg PO BEDTIME 06/03/15 Lisinopril 20 mg PO DAILY 06/03/15 Sumatriptan Succinate 50 mg PO DAILY PRN 06/03/15 Diltiazem HCl 30 mg PO BID 12/28/15 Potassium Chloride Tab [Micro-K] 10 meq PO DAILY 12/28/15 QUEtiapine FUMARATE [SEROquel] 250 mg PO BEDTIME 01/06/17 Cyclobenzaprine HCl 10 mg PO DAILY 05/21/17 Simvastatin 10 mg PO BEDTIME 05/21/17 Sucralfate 1 gm PO QID 05/21/17 cloNAZepam [KlonoPIN] 1.5 mg PO BEDTIME 05/21/17 B-Complex W/Biotin & Folic Aci [Super B-Complex] 2 tab PO DAILY 07/03/17 Black Pepper-Turmeric [Turmeric Curcumin Complex 500-3 mg] 1 cap PO BID Multiple Vitamins W/ Minerals [Alive Once Daily Womens U] 1 tab PO DAILY Oral Electrolytes [Thermotabs] 1 tab PO DAILY 07/03/17 Potassium Chloride [Micro-K] 20 meq PO BEDTIME 07/03/17 Propranolol HCl [Inderal] 40 mg PO BID 07/03/17 Sulfa/Trimeth 800/160 (Ds) Tab [Bactrim DS Tab] 1 ea PO Q12HR #20 tab 07/03/17 Baclofen 20 mg PO BID #30 tab 07/05/17 Promethazine Tab [Phenergan Tablet] 25 mg PO .Q4H PRN #30 tab 07/05/17 Topiramate [Topiramate ER] 25 mg PO DAILY #30 cap 07/05/17 Famotidine 20 mg PO BID #60 tab 07/29/17 predniSONE 20 mg PO DAILY #7 tab 10/17/17 predniSONE 20 mg PO DAILY #7 tab 10/17/17 Review of Systems - Review of Systems Constitutional: States: no symptoms reported EENTM: States: no symptoms reported Respiratory: States: no symptoms reported Cardiology: States: no symptoms reported Gastrointestinal/Abdominal: States: no symptoms reported Genitourinary: States: no symptoms reported Musculoskeletal: States: no symptoms reported Skin: States: no symptoms reported Neurological: States: see HPI, headache Past Medical History (General) - Patient Medical History Hx Seizures: No Hx Stroke: No Hx Dementia: No Hx Asthma: No Hx of COPD: No Hx Cardiac Disorders: Yes Hx Congestive Heart Failure: No Hx Pacemaker: No Hx Hypertension: Yes Hx Thyroid Disease: No Hx Diabetes: No Hx Gastroesophageal Reflux: No Hx Renal Disease: No Hx Cancer: No Hx of HIV: No Hx Hepatitis C: No Hx MRSA: No MRSA Source:: nose Surgical History: cholecystectomy, other - CTS,bariatric surgery - Vaccination History Hx Tetanus, Diphtheria Vaccination: No Hx Influenza Vaccination: Yes Hx Pneumococcal Vaccination: No - Social History Hx Tobacco Use: No Hx Chewing Tobacco Use: No Hx Alcohol Use: No Hx Substance Use: No Hx Substance Use Treatment: No Hx Depression: Yes Hx Physical Abuse: No Hx Emotional Abuse: No Hx Suspected Abuse: No - Activities of Daily Living Patient Lives Alone: No - Female History Patient : No Family Medical History - Family History Mother Family History: No Known Living Status: Hx Family Hypertension: Yes - mom Hx Family Diabetes: Yes Hx Family Cancer: Yes - dad-kidney Father Family History: No Known Living Status: Hx Family Hypertension: Yes Hx Family Cancer: Yes Hx Family;Other: dialysis towards end of life Physical Exam - Physical Exam General Appearance: Alert, Comfortable, No apparent distress, Other - speech fluent Eyes, Ears, Nose, Throat Exam: PERRL/EOMI, normal ENT inspection, TMs normal, pharynx normal Neck: non-tender, full range of motion, supple, trachea midline Cardiovascular/Chest: normal peripheral pulses, regular rate, rhythm, no murmur Respiratory: chest non-tender, lungs clear Gastrointestinal/Abdominal: non tender, soft, no organomegaly Back Exam: no CVA tenderness, no vertebral tenderness Extremity: no pedal edema, no calf tenderness Mental Status: alert, oriented x 3 aviation boatswain's mate Exam: normal hearing, normal speech, PERRL Coordination/Gait: normal gait Motor/Sensory: no motor deficit, no sensory deficit, no pronator drift Skin Exam: warm/dry, normal color Lymphatic: no adenopathy Progress - Progress Progress: 10/17/17 13:41 Vital Signs - 8 hr 10/17/17 13:09 Temperature 98.2 F Pulse Rate [ 87 left brachial] Respiratory 16 Rate Blood Pressure 154/93 [left brachial] O2 Sat by Pulse 99 Oximetry Departure - Departure Clinical Impression: Migraine Qualifiers: Migraine type: unspecified Status migrainosus presence: without status migrainosus Intractability: not intractable Qualified Code(s): G43.909 - Migraine, unspecified, not intractable, without status migrainosus Time of Disposition: 13:56 Disposition: Discharge to Home or Self Care Condition: Fair Departure Forms: ED Discharge - Pt. Copy, Patient Portal Self Enrollment Instructions: DI for Headache Referrals: Belinda Velez NP [Primary Care Provider] - 1-2 Weeks Prescriptions: predniSONE 20 mg PO DAILY #7 tab predniSONE 20 mg PO DAILY #7 tab Home Medications: Ambulatory Orders Cyclobenzaprine HCl [Flexeril] 20 mg PO BEDTIME 06/03/15 Estradiol [Estrace] 1 mg PO BEDTIME 06/03/15 Lisinopril 20 mg PO DAILY 06/03/15 Sumatriptan Succinate 50 mg PO DAILY PRN 06/03/15 Diltiazem HCl 30 mg PO BID 12/28/15 Potassium Chloride Tab [Micro-K] 10 meq PO DAILY 12/28/15 QUEtiapine FUMARATE [SEROquel] 250 mg PO BEDTIME 01/06/17 Cyclobenzaprine HCl 10 mg PO DAILY 05/21/17 Simvastatin 10 mg PO BEDTIME 05/21/17 Sucralfate 1 gm PO QID 05/21/17 cloNAZepam [KlonoPIN] 1.5 mg PO BEDTIME 05/21/17 B-Complex W/Biotin & Folic Aci [Super B-Complex] 2 tab PO DAILY 07/03/17 Black Pepper-Turmeric [Turmeric Curcumin Complex 500-3 mg] 1 cap PO BID Multiple Vitamins W/ Minerals [Alive Once Daily Womens U] 1 tab PO DAILY Oral Electrolytes [Thermotabs] 1 tab PO DAILY 07/03/17 Potassium Chloride [Micro-K] 20 meq PO BEDTIME 07/03/17 Propranolol HCl [Inderal] 40 mg PO BID 07/03/17 Sulfa/Trimeth 800/160 (Ds) Tab [Bactrim DS Tab] 1 ea PO Q12HR #20 tab 07/03/17 Baclofen 20 mg PO BID #30 tab 07/05/17 Promethazine Tab [Phenergan Tablet] 25 mg PO .Q4H PRN #30 tab 07/05/17 Topiramate [Topiramate ER] 25 mg PO DAILY #30 cap 07/05/17 Famotidine 20 mg PO BID #60 tab 07/29/17 predniSONE 20 mg PO DAILY #7 tab 10/17/17 predniSONE 20 mg PO DAILY #7 tab 10/17/17 Additional Instructions: Follow up with primary 18 october 2017
[2017-10-17 13:35] VITALS: TEMP 98.2
[2017-10-17 15:08] VITALS: BP 138/72; O2SAT 98
== END 2017-10-17 15:09 | disposition home or self-care (01) ==
LOC: ER 13:04
DX: G43.909 Migraine, unspecified, not intractable, without status migrainosus (principal); I10 Essential (primary) hypertension; F32.9 Major depressive disorder, single episode, unspecified; Z79.899 Other long term (current) drug therapy; Z88.0 Allergy status to penicillin; Z88.8 Allergy status to other drugs, medicaments and biological substances
CPT/HCPCS: J0595; J1100; J2550

== ENCOUNTER 2017-10-24 12:17 | Emergency (ER) | payer OTHER ==
[2017-10-24 12:50] VITALS: TEMP 99.7; O2SAT 98
[2017-10-24] MEDS: PROMETHAZINE HCL 25 MG TAB PO ONE (13:44)
[2017-10-24 13:46] VITALS: BP 150/110
--- NOTE | 2017-10-24 14:19 | ED.PDOC ---
History of Present Illness - General Chief Complaint: General Stated Complaint: right ear pain, recurrent UTI symptoms, headache Time Seen by Provider: 10/24/17 12:29 Source: patient Exam Limitations: no limitations - History of Present Illness Initial Comments: the patient is a 62-year-old female presenting to emergency room secondary to recurrent symptoms of UTI including urinary frequency and mild pelvic cramping. She has had multiple urinary tract infections in the past with similar symptoms. Additionally the patient is having some mild dizziness and right ear discomfort. She does have some cerumen impaction on that side and has had this problem in the past. After risks and benefits were explained the patient did have the right ear irrigated and we did use a curette to remove some wax. She still does have some wax present. We did scrape the ear canal getting some wax out and she has been instructed to use hydrogen peroxide several times a day for the next few days to help soften the rest of the wax and prevent any infection she has agreed to this. Timing/Duration: unsure Severity: mild Improving Factors: nothing Worsening Factors: nothing Associated Symptoms: denies symptoms Allergies/Adverse Reactions: Allergies Penicillins Allergy (Verified 10/16/17 19:19) Other Causes a rash and throat to swell horse serum Allergy (Uncoded 10/16/17 19:19) Unknown Home Medications: Ambulatory Orders Cyclobenzaprine HCl [Flexeril] 20 mg PO BEDTIME 06/03/15 Estradiol [Estrace] 1 mg PO BEDTIME 06/03/15 Lisinopril 20 mg PO DAILY 06/03/15 Sumatriptan Succinate 50 mg PO DAILY PRN 06/03/15 Diltiazem HCl 30 mg PO BID 12/28/15 Potassium Chloride Tab [Micro-K] 10 meq PO DAILY 12/28/15 QUEtiapine FUMARATE [SEROquel] 250 mg PO BEDTIME 01/06/17 Cyclobenzaprine HCl 10 mg PO DAILY 05/21/17 Simvastatin 10 mg PO BEDTIME 05/21/17 Sucralfate 1 gm PO QID 05/21/17 cloNAZepam [KlonoPIN] 1.5 mg PO BEDTIME 05/21/17 B-Complex W/Biotin & Folic Aci [Super B-Complex] 2 tab PO DAILY 07/03/17 Black Pepper-Turmeric [Turmeric Curcumin Complex 500-3 mg] 1 cap PO BID Multiple Vitamins W/ Minerals [Alive Once Daily Womens U] 1 tab PO DAILY Oral Electrolytes [Thermotabs] 1 tab PO DAILY 07/03/17 Potassium Chloride [Micro-K] 20 meq PO BEDTIME 07/03/17 Propranolol HCl [Inderal] 40 mg PO BID 07/03/17 Sulfa/Trimeth 800/160 (Ds) Tab [Bactrim DS Tab] 1 ea PO Q12HR #20 tab 07/03/17 Baclofen 20 mg PO BID #30 tab 07/05/17 Promethazine Tab [Phenergan Tablet] 25 mg PO .Q4H PRN #30 tab 07/05/17 Topiramate [Topiramate ER] 25 mg PO DAILY #30 cap 07/05/17 Famotidine 20 mg PO BID #60 tab 07/29/17 predniSONE 20 mg PO DAILY #7 tab 10/17/17 predniSONE 20 mg PO DAILY #7 tab 10/17/17 Review of Systems - Review of Systems Constitutional: States: no symptoms reported EENTM: States: ear pain Respiratory: States: no symptoms reported Cardiology: States: no symptoms reported Gastrointestinal/Abdominal: States: no symptoms reported Genitourinary: States: dysuria, frequency Musculoskeletal: States: no symptoms reported Skin: States: no symptoms reported Neurological: States: no symptoms reported Endocrine: States: no symptoms reported All other Systems: No Change from Baseline Past Medical History (General) - Patient Medical History Hx Seizures: No Hx Stroke: No Hx Dementia: No Hx Asthma: No Hx of COPD: No Hx Cardiac Disorders: Yes Hx Congestive Heart Failure: No Hx Pacemaker: No Hx Hypertension: Yes Hx Thyroid Disease: No Hx Diabetes: Yes Hx Gastroesophageal Reflux: No Hx Renal Disease: No Hx Cancer: No Hx of HIV: No Hx Hepatitis C: No Hx MRSA: No MRSA Source:: nose - Vaccination History Hx Tetanus, Diphtheria Vaccination: No Hx Influenza Vaccination: Yes Hx Pneumococcal Vaccination: No - Social History Hx Tobacco Use: No Hx Chewing Tobacco Use: No Hx Alcohol Use: No Hx Substance Use: No Hx Substance Use Treatment: No Hx Depression: Yes Hx Physical Abuse: No Hx Emotional Abuse: No Hx Suspected Abuse: No - Female History Patient : No Family Medical History - Family History Mother Family History: No Known Living Status: Hx Family Hypertension: Yes - mom Hx Family Diabetes: Yes Hx Family Cancer: Yes - dad-kidney Father Family History: No Known Living Status: Hx Family Hypertension: Yes Hx Family Cancer: Yes Hx Family;Other: dialysis towards end of life Physical Exam - Physical Exam General Appearance: Alert, Comfortable, No apparent distress Eye Exam: bilateral normal Ears, Nose, Throat: hearing grossly normal, normal ENT inspection, normal pharynx Neck: full range of motion, supple Respiratory: lungs clear, normal breath sounds, no respiratory distress, no accessory muscle use Cardiovascular/Chest: normal peripheral pulses, regular rate, rhythm, no edema Peripheral Pulses: radial,right: 2+, radial,left: 2+, dorsalis pedis,right: 2+, dorsalis pedis,left: 2+ Gastrointestinal/Abdominal: non tender, soft Rectal Exam: deferred Back Exam: normal inspection, no CVA tenderness Extremity: normal range of motion, non-tender, normal inspection, no pedal edema , normal capillary refill Neurologic: station cleaning porter II-XII nml as tested, alert, normal mood/affect, oriented x 3 Skin Exam: normal color Comments: Vital Signs - 24 hr 10/24/17 10/24/17 12:41 13:45 Temperature 99.7 F H Pulse Rate [ 83 88 right brachial] Respiratory 20 16 Rate Blood Pressure 167/105 150/110 [right brachial ] O2 Sat by Pulse 98 98 Oximetry Progress - Progress Progress: 10/24/17 14:19 the patient is a 62-year-old female presenting with 2 separate issues. The first is cerumen impaction in the right ear canal. We did irrigate and disimpact this partially. She can use hydrogen peroxide 2-3 times a day in that ear and before she showers for the next week in order to help remove the rest of the wax and prevent any infection from a mild abrasion that occurred while we were trying to disimpact the ear canal. The patient also presented with symptoms concerning for another urinary tract infection. She does not appear to have another urinary tract infection. She has been given 1 dose of oral Diflucan in case she is starting to have another yeast infection. She does need to keep her follow-up with urology. There is a question of whether or not the patient does have a form of interstitial cystitis that may need a different treatment. She needs to keep herself well hydrated. She otherwise it to keep follow-up with her primary care doctor. ER warnings were given. - Results/Orders Results/Orders: Laboratory Results - last 24 hr 10/24/17 13:10 Urine Color Yellow Urine Appearance Clear Urine pH 5.5 Ur Specific Wallace 1.010 Urine Protein Negative Urine Glucose (UA) Negative Urine Ketones Negative Urine Blood Trace-lysed H Urine Nitrite Negative Urine Bilirubin Negative Urine Urobilinogen 0.2 Ur Leukocyte Esterase Trace H Urine RBC 1-3 Urine WBC 1-3 Ur Epithelial Cells 0 Urine Bacteria 0 Departure - Departure Clinical Impression: Impacted cerumen of right ear, Dysuria Disposition: Discharge to Home or Self Care Condition: Fair Departure Forms: ED Discharge - Pt. Copy, Patient Portal Self Enrollment Instructions: Ear Wax Impaction (DC) Diet: regular diet Activity: increase activity as tolerated Referrals: Belinda Velez SUBASSEMBLY ASSEMBLER [Primary Care Provider] - 1-2 Weeks Home Medications: Ambulatory Orders Cyclobenzaprine HCl [Flexeril] 20 mg PO BEDTIME 06/03/15 Estradiol [Estrace] 1 mg PO BEDTIME 06/03/15 Lisinopril 20 mg PO DAILY 06/03/15 Sumatriptan Succinate 50 mg PO DAILY PRN 06/03/15 Diltiazem HCl 30 mg PO BID 12/28/15 Potassium Chloride Tab [Micro-K] 10 meq PO DAILY 12/28/15 QUEtiapine FUMARATE [SEROquel] 250 mg PO BEDTIME 01/06/17 Cyclobenzaprine HCl 10 mg PO DAILY 05/21/17 Simvastatin 10 mg PO BEDTIME 05/21/17 Sucralfate 1 gm PO QID 05/21/17 cloNAZepam [KlonoPIN] 1.5 mg PO BEDTIME 05/21/17 B-Complex W/Biotin & Folic Aci [Super B-Complex] 2 tab PO DAILY 07/03/17 Black Pepper-Turmeric [Turmeric Curcumin Complex 500-3 mg] 1 cap PO BID Multiple Vitamins W/ Minerals [Alive Once Daily Womens U] 1 tab PO DAILY Oral Electrolytes [Thermotabs] 1 tab PO DAILY 07/03/17 Potassium Chloride [Micro-K] 20 meq PO BEDTIME 07/03/17 Propranolol HCl [Inderal] 40 mg PO BID 07/03/17 Sulfa/Trimeth 800/160 (Ds) Tab [Bactrim DS Tab] 1 ea PO Q12HR #20 tab 07/03/17 Baclofen 20 mg PO BID #30 tab 07/05/17 Promethazine Tab [Phenergan Tablet] 25 mg PO .Q4H PRN #30 tab 07/05/17 Topiramate [Topiramate ER] 25 mg PO DAILY #30 cap 07/05/17 Famotidine 20 mg PO BID #60 tab 07/29/17 predniSONE 20 mg PO DAILY #7 tab 10/17/17 predniSONE 20 mg PO DAILY #7 tab 10/17/17 Additional Instructions: the patient is a 62-year-old female presenting with 2 separate issues. The first is cerumen impaction in the right ear canal. We did irrigate and disimpact this partially. She can use hydrogen peroxide 2-3 times a day in that ear and before she showers for the next week in order to help remove the rest of the wax and prevent any infection from a mild abrasion that occurred while we were trying to disimpact the ear canal. The patient also presented with symptoms concerning for another urinary tract infection. She does not appear to have another urinary tract infection. She has been given 1 dose of oral Diflucan in case she is starting to have another yeast infection. She does need to keep her follow-up with urology. There is a question of whether or not the patient does have a form of interstitial cystitis that may need a different treatment. She needs to keep herself well hydrated. She otherwise it to keep follow-up with her primary care doctor. ER warnings were given.
[2017-10-24] MEDS: FLUCONAZOLE 100 MG TAB PO ONE (14:34)
== END 2017-10-24 14:36 | disposition home or self-care (01) ==
LOC: ER 12:17
DX: H61.21 Impacted cerumen, right ear (principal); R30.0 Dysuria; R51 Headache; E11.9 Type 2 diabetes mellitus without complications; I10 Essential (primary) hypertension; F32.9 Major depressive disorder, single episode, unspecified; Z88.0 Allergy status to penicillin; Z88.8 Allergy status to other drugs, medicaments and biological substances
CPT/HCPCS: 81001; Q0169

== ENCOUNTER → 2017-11-21 | Outpatient (CLI) | payer OTHER ==
--- NOTE | 2017-11-22 15:13 | RAD ---
EXAM DESCRIPTION: XR ABDOMEN 1 VIEW (KUB) CLINICAL HISTORY: RENAL STONE COMPARISON: August 03, 2017 TECHNIQUE: KUB FINDINGS: Large stone approximately 1.7 cm in length in the region of the right renal pelvis is unchanged from July examination. Additional right or left renal calculi are not apparent. Numerous pelvic phleboliths bilaterally are noted. Modest levoscoliosis with severe multilevel degenerative disc disease is unchanged. No soft tissue masses or bowel obstruction or ileus is seen. IMPRESSION: Persistent approximate 1.7 cm calculus in the region of the right renal pelvis. Electronically signed by: Bhavin Nicholson MD 11/22/2017 3:12 PM CDT
== END ==
LOC: RAD 14:47
PROVIDERS: ATTEND Urology
DX: N20.0 Calculus of kidney (principal)

== ENCOUNTER → 2017-12-30 | Outpatient (CLI) | payer OTHER ==
--- NOTE | 2018-01-02 16:39 | MAM ---
EXAM DESCRIPTION: Screening Mammogram,Bilateral: Digital Mammography CLINICAL HISTORY: 62 years Female SCREENING . No complaints. No personal or family history of breast cancer. Childbirth. Hysterectomy. Currently on HRT. JOSH risk evaluation assessment: Lifetime risk is: 5.8. COMPARISON: 2-D digital screening bilateral mammography 08/19/2016.. . TECHNIQUE: Bilateral CC and MLO projection full-field images, 2-D digital screening mammographic technique. CAD was not available for tomosynthesis and 2-D imaging. FINDINGS: The breast parenchymal density pattern is: Scattered areas of fibroglandular density. No skin thickening or nipple retraction bilateral axillary lymph nodes. Bilateral solitary microcalcifications. Bilateral mass in the mid right kidney consistent with a lymph node and stable. No new focal, stellate mass or density, focal asymmetry , and no suspicious microcalcifications bilaterally. Stable mammograms compared to the prior study. IMPRESSION: Benign exam. BIRAD CATEGORY: 2 BENIGN FINDINGS. RECOMMENDATIONS: FOLLOW UP: Routine digital bilateral mammographic screening, one year interval from December 2017. Written communication explaining the IMPRESSION and follow-up, will be mailed to the patient and referring health care provider. According to the [employer], yearly mammograms are recommended starting at age 40 and continuing as long as a woman is in good health. Any breast change noted on a breast self-exam should be reported promptly to the patient's healthcare provider. Breast MRI is recommended for women with an approximately 20-25% or greater lifetime risk of breast cancer, including women with a strong family history of breast or ovarian cancer and women who have been treated for Hodgkin's disease. A negative mammographic report should not delay tissue diagnosis in patients with significant clinical history or physical findings. Extremely dense breast tissue limits the sensitivity of digital mammography. Electronically signed by: Danyel Magana MD 01/02/2018 4:37 PM [facility]
== END ==
LOC: MAMMO 14:00
PROVIDERS: ATTEND Nurse Practitioner Family
DX: Z12.31 Encounter for screening mammogram for malignant neoplasm of breast (principal)

== ENCOUNTER → 2018-01-04 | Outpatient (CLI) | payer OTHER | LOC: YCFC.O 15:17 | PROVIDERS: ATTEND Nurse Practitioner Family | DX: R30.0 Dysuria (principal) ==

== ENCOUNTER → 2018-02-20 | Outpatient (CLI) | payer OTHER ==
--- NOTE | 2018-02-20 16:23 | RAD ---
EXAM DESCRIPTION: KUB CLINICAL HISTORY: RENAL STONES COMPARISON: 21 November 2017 TECHNIQUE: KUB FINDINGS: A right ureteral stent is observed in place. Stone fragments are observed in the lower pole of the patient's right kidney. No left renal calculi are detected. Degenerative changes are observed throughout the lumbar spine. The bowel gas pattern is unremarkable. Phleboliths are observed in the pelvis. No organomegaly is seen. IMPRESSION: 1. A right ureteral stent has been placed in the interval from the previous exam. 2. Numerous small stone fragments are observed throughout the lower pole the right kidney. Electronically signed by: Kaiser Aaron MD 02/20/2018 4:22 PM [facility]
== END ==
LOC: RAD 13:11
PROVIDERS: ATTEND Urology
DX: N20.0 Calculus of kidney (principal); Z98.890 Other specified postprocedural states

== ENCOUNTER 2018-02-23 12:58 | Emergency (ER) | payer OTHER ==
[2018-02-23] MEDS ORDERED: PROMETHAZINE HCL 25 MG TAB PO ONE (13:21)
[2018-02-23] MEDS ORDERED: ONDANSETRON ODT 8 MG TAB SL ONE (13:21)
[2018-02-23 14:03] VITALS: TEMP 98.5; O2SAT 98
--- NOTE | 2018-02-23 14:13 | ED.PDOC ---
History of Present Illness - General Chief Complaint: GI Problem Stated Complaint: n/v abd cramping Time Seen by Provider: 02/23/18 13:08 Source: patient Exam Limitations: no limitations - History of Present Illness Initial Comments: The patient is 62-year-old female presenting to the emergency room secondary to 24 hours of some nausea with intermittent vomiting. No diarrhea or constipation. No fevers. Vague abdominal cramping. No point pain. No palpable mass. Timing/Duration: 24 hours Severity: mild Improving Factors: nothing Worsening Factors: nothing Associated Symptoms: loss of appetite, nausea/vomiting Allergies/Adverse Reactions: Allergies Penicillins Allergy (Verified 10/16/17 19:19) Other Causes a rash and throat to swell horse serum Allergy (Uncoded 10/16/17 19:19) Unknown Home Medications: Ambulatory Orders Cyclobenzaprine HCl [Flexeril] 20 mg PO BEDTIME 06/03/15 Estradiol [Estrace] 1 mg PO BEDTIME 06/03/15 Lisinopril 20 mg PO DAILY 06/03/15 Sumatriptan Succinate 50 mg PO DAILY PRN 06/03/15 Diltiazem HCl 30 mg PO BID 12/28/15 Potassium Chloride Tab [Micro-K] 10 meq PO DAILY 12/28/15 QUEtiapine FUMARATE [SEROquel] 250 mg PO BEDTIME 01/06/17 Cyclobenzaprine HCl 10 mg PO DAILY 05/21/17 Simvastatin 10 mg PO BEDTIME 05/21/17 Sucralfate 1 gm PO QID 05/21/17 cloNAZepam [KlonoPIN] 1.5 mg PO BEDTIME 05/21/17 B-Complex W/Biotin & Folic Aci [Super B-Complex] 2 tab PO DAILY 07/03/17 Black Pepper-Turmeric [Turmeric Curcumin Complex 500-3 mg] 1 cap PO BID 07/03/17 Multiple Vitamins W/ Minerals [Alive Once Daily Womens U] 1 tab PO DAILY 07/03/17 Oral Electrolytes [Thermotabs] 1 tab PO DAILY 07/03/17 Potassium Chloride [Micro-K] 20 meq PO BEDTIME 07/03/17 Propranolol HCl [Inderal] 40 mg PO BID 07/03/17 Sulfa/Trimeth 800/160 (Ds) Tab [Bactrim DS Tab] 1 ea PO Q12HR #20 tab 07/03/17 Baclofen 20 mg PO BID #30 tab 07/05/17 Promethazine Tab [Phenergan Tablet] 25 mg PO .Q4H PRN #30 tab 07/05/17 Topiramate [Topiramate ER] 25 mg PO DAILY #30 cap 07/05/17 Famotidine 20 mg PO BID #60 tab 07/29/17 predniSONE 20 mg PO DAILY #7 tab 10/17/17 predniSONE 20 mg PO DAILY #7 tab 10/17/17 Ondansetron [Zofran Odt] 4 mg PO Q4H PRN #10 tab 02/23/18 Promethazine Supp [Phenergan Suppository] 12.5 mg ND Q6HR PRN #10 sup 02/23/18 Sucralfate Tab [Carafate Tab] 1 gm PO QID #60 tab 02/23/18 Review of Systems - Review of Systems Constitutional: States: malaise EENTM: States: no symptoms reported Respiratory: States: cough - mild for the last week Cardiology: States: no symptoms reported Gastrointestinal/Abdominal: States: nausea, vomiting Genitourinary: States: no symptoms reported Musculoskeletal: States: no symptoms reported Skin: States: no symptoms reported Neurological: States: no symptoms reported Endocrine: States: no symptoms reported All other Systems: No Change from Baseline Past Medical History (General) - Patient Medical History Hx Seizures: No Hx Stroke: No Hx Dementia: No Hx Asthma: No Hx of COPD: No Hx Cardiac Disorders: Yes Hx Congestive Heart Failure: No Hx Pacemaker: No Hx Hypertension: Yes Hx Thyroid Disease: No Hx Diabetes: Yes Hx Gastroesophageal Reflux: No Hx Renal Disease: No Hx Cancer: No Hx of HIV: No Hx Hepatitis C: No Hx MRSA: No MRSA Source:: nose - Vaccination History Hx Tetanus, Diphtheria Vaccination: No Hx Influenza Vaccination: Yes Hx Pneumococcal Vaccination: No - Social History Hx Tobacco Use: No Hx Chewing Tobacco Use: No Hx Alcohol Use: No Hx Substance Use: No Hx Substance Use Treatment: No Hx Depression: Yes Hx Physical Abuse: No Hx Emotional Abuse: No Hx Suspected Abuse: No - Female History Patient : No Family Medical History - Family History Mother Family History: No Known Living Status: Hx Family Hypertension: Yes - mom Hx Family Diabetes: Yes Hx Family Cancer: Yes - dad-kidney Father Family History: No Known Living Status: Hx Family Hypertension: Yes Hx Family Cancer: Yes Hx Family;Other: dialysis towards end of life Physical Exam - Physical Exam General Appearance: Alert, Comfortable, No apparent distress Eye Exam: bilateral normal Ears, Nose, Throat: hearing grossly normal, normal pharynx, nasal congestion - nares are red with clear rhinorrhea Neck: full range of motion, supple Respiratory: lungs clear, normal breath sounds, no respiratory distress, no accessory muscle use Cardiovascular/Chest: normal peripheral pulses - orderline sinus tachycardia, regular rate, rhythm, no edema Peripheral Pulses: radial,right: 2+, radial,left: 2+, dorsalis pedis,right: 2+, dorsalis pedis,left: 2+ Gastrointestinal/Abdominal: non tender, soft Rectal Exam: deferred Back Exam: no CVA tenderness, no vertebral tenderness Extremity: normal range of motion, non-tender, no calf tenderness, normal capillary refill Neurologic: snuff drier II-XII nml as tested, alert, normal mood/affect, oriented x 3 Skin Exam: normal color Comments: Vital Signs - 24 hr 02/23/18 14:00 Temperature 98.5 F Pulse Rate [ 115 H left brachial] Respiratory 20 Rate Blood Pressure 163/103 [left brachial] O2 Sat by Pulse 98 Oximetry Progress - Progress Progress: 02/23/18 14:12 the patient is a 62-year-old female presenting to the emergency room secondary to what appears to be a viral gastroenteritis. She has responded well to nausea and GI medications. She is going to be written for Phenergan suppositories and Zofran oral dissolving tablets for as needed use. Additionally I'm going to write her for some Carafate for the next couple of weeks to take to reduce any gastritis. She needs to keep herself well hydrated and take small frequent meals of bland foods. ER warnings were given for any significant worsening. Follow-up with primary care doctor early next week. Departure - Departure Clinical Impression: Viral gastroenteritis Disposition: Discharge to Home or Self Care Condition: Fair Departure Forms: ED Discharge - Pt. Copy, Patient Portal Self Enrollment Instructions: DI for Gastritis Diet: bland diet Activity: increase activity as tolerated Referrals: Belinda Velez, METHODS SPECIALIST ENGINEER [Primary Care Provider] - 1-5 Days Prescriptions: Promethazine Supp [Phenergan Suppository] 12.5 mg ND Q6HR PRN #10 sup PRN Reason: Nausea -- Severe Ondansetron [Zofran Odt] 4 mg PO Q4H PRN #10 tab PRN Reason: Vomiting Sucralfate Tab [Carafate Tab] 1 gm PO QID #60 tab Home Medications: Ambulatory Orders Cyclobenzaprine HCl [Flexeril] 20 mg PO BEDTIME 06/03/15 Estradiol [Estrace] 1 mg PO BEDTIME 06/03/15 Lisinopril 20 mg PO DAILY 06/03/15 Sumatriptan Succinate 50 mg PO DAILY PRN 06/03/15 Diltiazem HCl 30 mg PO BID 12/28/15 Potassium Chloride Tab [Micro-K] 10 meq PO DAILY 12/28/15 QUEtiapine FUMARATE [SEROquel] 250 mg PO BEDTIME 01/06/17 Cyclobenzaprine HCl 10 mg PO DAILY 05/21/17 Simvastatin 10 mg PO BEDTIME 05/21/17 Sucralfate 1 gm PO QID 05/21/17 cloNAZepam [KlonoPIN] 1.5 mg PO BEDTIME 05/21/17 B-Complex W/Biotin & Folic Aci [Super B-Complex] 2 tab PO DAILY 07/03/17 Black Pepper-Turmeric [Turmeric Curcumin Complex 500-3 mg] 1 cap PO BID 07/03/17 Multiple Vitamins W/ Minerals [Alive Once Daily Womens U] 1 tab PO DAILY 07/03/17 Oral Electrolytes [Thermotabs] 1 tab PO DAILY 07/03/17 Potassium Chloride [Micro-K] 20 meq PO BEDTIME 07/03/17 Propranolol HCl [Inderal] 40 mg PO BID 07/03/17 Sulfa/Trimeth 800/160 (Ds) Tab [Bactrim DS Tab] 1 ea PO Q12HR #20 tab 07/03/17 Baclofen 20 mg PO BID #30 tab 07/05/17 Promethazine Tab [Phenergan Tablet] 25 mg PO .Q4H PRN #30 tab 07/05/17 Topiramate [Topiramate ER] 25 mg PO DAILY #30 cap 07/05/17 Famotidine 20 mg PO BID #60 tab 07/29/17 predniSONE 20 mg PO DAILY #7 tab 10/17/17 predniSONE 20 mg PO DAILY #7 tab 10/17/17 Ondansetron [Zofran Odt] 4 mg PO Q4H PRN #10 tab 02/23/18 Promethazine Supp [Phenergan Suppository] 12.5 mg ND Q6HR PRN #10 sup 02/23/18 Sucralfate Tab [Carafate Tab] 1 gm PO QID #60 tab 02/23/18 Additional Instructions: the patient is a 62-year-old female presenting to the emergency room secondary to what appears to be a viral gastroenteritis. She has responded well to nausea and GI medications. She is going to be written for Phenergan suppositories and Zofran oral dissolving tablets for as needed use. Additionally I'm going to write her for some Carafate for the next couple of weeks to take to reduce any gastritis. She needs to keep herself well hydrated and take small frequent meals of bland foods. ER warnings were given for any significant worsening. Follow-up with primary care doctor early next week. she should hold her cholesterol medication until she is feeling better.
[2018-02-23 14:41] VITALS: BP 152/101
== END 2018-02-23 14:32 | disposition home or self-care (01) ==
LOC: ER 12:58
DX: A08.4 Viral intestinal infection, unspecified (principal); F32.9 Major depressive disorder, single episode, unspecified; E11.9 Type 2 diabetes mellitus without complications; I10 Essential (primary) hypertension; I51.9 Heart disease, unspecified; Z79.899 Other long term (current) drug therapy; Z88.0 Allergy status to penicillin

== ENCOUNTER → 2018-02-23 | Outpatient (CLI) | payer OTHER | LOC: LAB.O 14:43 | PROVIDERS: ATTEND Nurse Practitioner Family | DX: E87.6 Hypokalemia (principal) ==

== ENCOUNTER → 2018-03-06 | Outpatient (CLI) | payer OTHER ==
--- NOTE | 2018-03-06 08:50 | RAD ---
EXAM DESCRIPTION: Pelvis CLINICAL HISTORY: 62 years Female, PAIN IN LEFT HIP COMPARISON: None. FINDINGS: Ureteral catheter on the right is noted with the lower pigtail low in the pelvis presumed to be in the bladder. Advanced degenerative changes lower lumbar spine with vacuum disc phenomenon at the disc levels and marked spurring. Degenerative changes of the SI joints. Enthesopathy is seen at the lateral margin of the iliac crests bilaterally. Bones of the pelvic ring appear intact. No fracture or bony destructive lesion. No hip joint dislocation or proximal femoral fracture. IMPRESSION: Negative for fracture. Electronically signed by: Mal Barker MD 03/06/2018 8:49 AM [facility]
--- NOTE | 2018-03-06 08:51 | RAD ---
EXAM DESCRIPTION: Right knee, 4 radiographs CLINICAL HISTORY: Right knee pain FINDINGS/ IMPRESSION: Tricompartmental osteoarthritis. Moderate medial femorotibial and mild lateral femorotibial joint space narrowing. Meniscal chondrocalcinosis. Subluxation of the body medial meniscus. Joint line osteophytes, tricompartmental No fracture. Moderate suprapatellar joint effusion Electronically signed by: Bhavin Hanley MD 03/06/2018 8:50 AM [facility]
--- NOTE | 2018-03-06 08:54 | RAD ---
EXAM DESCRIPTION: Knee,Left Complete CLINICAL HISTORY: 62 years, Female, PAIN IN LEFT KNEE COMPARISON: None TECHNIQUE: Three views of the left knee FINDINGS: No fracture or dislocation. Bones appear mildly osteopenic. Markedly narrowed appearance of medial compartment on frontal view. Marked sclerosis of the medial femoral condyle and medial tibial plateau with prominent medial and lateral joint line spurring. Mild spurring at the tibial spines. Lateral view shows normal position of the patella. Prominent posterior patellar spurring. Small to moderate suprapatellar knee joint effusion is present. Normal contour of quadriceps and patellar tendons. Mild lateral tilt of the patella on patellar sunrise view. Lucency in the anterior patellar is seen which could be an old healed fracture. Acute fracture is not thought likely without overlying soft tissue swelling. Prominent spurring of the posterior margins of the patella medially and laterally. Prominent anterior femoral trochlear spurring. IMPRESSION: Advanced degenerative osteoarthrosis of the left knee. Electronically signed by: Mal Barker MD 03/06/2018 8:52 AM [facility]
== END ==
LOC: RAD 08:20
PROVIDERS: ATTEND Orthopaedic Surgery
DX: M17.12 Unilateral primary osteoarthritis, left knee (principal); M17.11 Unilateral primary osteoarthritis, right knee; M23.311 Other meniscus derangements, anterior horn of medial meniscus, right knee; M25.561 Pain in right knee; M25.562 Pain in left knee; M25.551 Pain in right hip; M25.552 Pain in left hip

== ENCOUNTER → 2018-03-30 | Outpatient (CLI) | payer OTHER | LOC: LAB.O 15:45 | PROVIDERS: ATTEND Nurse Practitioner Family | DX: E87.6 Hypokalemia (principal) ==

== ENCOUNTER 2018-04-29 13:03 | Emergency (ER) | payer OTHER ==
[2018-04-29 13:37] VITALS: TEMP 97.3
--- NOTE | 2018-04-29 13:39 | ED.PDOC ---
History of Present Illness - General Chief Complaint: Problem Stated Complaint: Urgency and frequency Time Seen by Provider: 04/29/18 13:07 Source: patient Exam Limitations: no limitations - History of Present Illness Initial Comments: Sona Bonds 62 y/o female stated that she had burning pain on urination for the last 3 days not getting better.Nofever,no chills,no hematuria. Timing/Duration: other - 3 days Quality: burning Onset Location: suprapubic Activites at Onset: none Prior abdominal problems: none Sexual intercourse history: not active Improving Factors: nothing Worsening Factors: nothing Associated Symptoms: denies symptoms Allergies/Adverse Reactions: Allergies Penicillins Allergy (Verified 10/16/17 19:19) Other Causes a rash and throat to swell horse serum Allergy (Uncoded 10/16/17 19:19) Unknown Home Medications: Ambulatory Orders Cyclobenzaprine HCl [Flexeril] 20 mg PO BEDTIME 06/03/15 Estradiol [Estrace] 1 mg PO BEDTIME 06/03/15 Lisinopril 20 mg PO DAILY 06/03/15 Sumatriptan Succinate 50 mg PO DAILY PRN 06/03/15 Diltiazem HCl 30 mg PO BID 12/28/15 Potassium Chloride Tab [Micro-K] 10 meq PO DAILY 12/28/15 QUEtiapine FUMARATE [SEROquel] 250 mg PO BEDTIME 01/06/17 Cyclobenzaprine HCl [Cyclobenzaprine Hydrochlo] 10 mg PO DAILY 05/21/17 Simvastatin 10 mg PO BEDTIME 05/21/17 Sucralfate 1 gm PO QID 05/21/17 cloNAZepam [KlonoPIN] 1.5 mg PO BEDTIME 05/21/17 B-Complex W/Biotin & Folic Aci [Super B-Complex] 2 tab PO DAILY 07/03/17 Black Pepper-Turmeric [Turmeric Curcumin Complex 500-3 mg] 1 cap PO BID 07/03/17 Multiple Vitamins W/ Minerals [Alive Once Daily Womens U] 1 tab PO DAILY 07/03/17 Oral Electrolytes [Thermotabs] 1 tab PO DAILY 07/03/17 Potassium Chloride [Micro-K] 20 meq PO BEDTIME 07/03/17 Propranolol HCl [Inderal] 40 mg PO BID 07/03/17 Sulfa/Trimeth 800/160 (Ds) Tab [Bactrim DS Tab] 1 ea PO Q12HR #20 tab 07/03/17 Baclofen 20 mg PO BID #30 tab 07/05/17 Promethazine Tab [Phenergan Tablet] 25 mg PO .Q4H PRN #30 tab 07/05/17 Topiramate [Topiramate ER] 25 mg PO DAILY #30 cap 07/05/17 Famotidine 20 mg PO BID #60 tab 07/29/17 predniSONE 20 mg PO DAILY #7 tab 10/17/17 predniSONE 20 mg PO DAILY #7 tab 10/17/17 Ondansetron [Zofran Odt] 4 mg PO Q4H PRN #10 tab 02/23/18 Promethazine Supp [Phenergan Suppository] 12.5 mg FL Q6HR PRN #10 sup 02/23/18 Sucralfate Tab [Carafate Tab] 1 gm PO QID #60 tab 02/23/18 Sulfa/Trimeth 800/160 (Ds) Tab [Bactrim DS] 1 tablet PO BID 10 Days #20 tab 04/29/18 Review of Systems - Review of Systems Constitutional: States: no symptoms reported EENTM: States: no symptoms reported Gastrointestinal/Abdominal: States: no symptoms reported Genitourinary: States: see HPI All other Systems: Reviewed and Negative, No Change from Baseline Past Medical History (General) - Patient Medical History Hx Seizures: No Hx Stroke: No Hx Dementia: No Hx Asthma: No Hx of COPD: No Hx Cardiac Disorders: Yes Hx Congestive Heart Failure: No Hx Pacemaker: No Hx Hypertension: Yes Hx Thyroid Disease: No Hx Diabetes: Yes Hx Gastroesophageal Reflux: No Hx Renal Disease: No Hx Cancer: No Hx of HIV: No Hx Hepatitis C: No Hx MRSA: No MRSA Source:: nose Surgical History: cholecystectomy, gastric bypass - Vaccination History Hx Tetanus, Diphtheria Vaccination: No Hx Influenza Vaccination: Yes Hx Pneumococcal Vaccination: No - Social History Hx Tobacco Use: No Hx Chewing Tobacco Use: No Hx Alcohol Use: No Hx Substance Use: No Hx Substance Use Treatment: No Hx Depression: Yes Hx Physical Abuse: No Hx Emotional Abuse: No Hx Suspected Abuse: No - Female History Patient : No Family Medical History - Family History Mother Family History: No Known Living Status: Hx Family Hypertension: Yes - mom Hx Family Diabetes: Yes Hx Family Cancer: Yes - dad-kidney Father Family History: No Known Living Status: Hx Family Hypertension: Yes Hx Family Cancer: Yes Hx Family;Other: dialysis towards end of life Physical Exam - Physical Exam General Appearance: Alert, Comfortable, No apparent distress Eyes, Ears, Nose, Throat Exam: normal ENT inspection Neck: supple, normal inspection Cardiovascular/Respiratory: regular rate, rhythm, no M/R/G, normal peripheral pulses, normal breath sounds Gastrointestinal/Abdominal: normal bowel sounds, non tender, soft Back Exam: no CVA tenderness, no vertebral tenderness Extremity: no pedal edema, no calf tenderness Neurologic: alert, oriented x 3 Skin Exam: normal color, warm/dry Progress - Progress Progress: 04/29/18 13:41 Vital Signs - 8 hr 04/29/18 13:25 Temperature 97.3 F L Pulse Rate [ 94 H Left Radial] Respiratory 18 Rate Blood Pressure 114/73 [Left Arm] O2 Sat by Pulse 94 L Oximetry - Results/Orders Results/Orders: 04/29/18 13:33 UA [URINALYSIS] Stat Laboratory Results - last 24 hr 04/29/18 13:33 Urine Color [place] H Urine Appearance Sl cloudy Urine pH 5.0 Ur Specific [place] 1.010 Urine Protein Negative Urine Glucose (UA) Negative Urine Ketones Negative Urine Blood Negative Urine Nitrite Positive H Urine Bilirubin Negative Urine Urobilinogen 0.2 Ur Leukocyte Esterase Trace H Urine RBC 3-5 H Urine WBC 5-10 H Ur Epithelial Cells 0 Urine Bacteria 1+ Urine Yeast Rare Discuss test result with patient Departure - Departure Clinical Impression: Urinary tract infection Qualifiers: Urinary tract infection type: site unspecified Hematuria presence: without hematuria Qualified Code(s): N39.0 - Urinary tract infection, site not specified Time of Disposition: 13:51 Disposition: Discharge to Home or Self Care Condition: Fair Departure Forms: ED Discharge - Pt. Copy, Patient Portal Self Enrollment Instructions: DI for Urinary Tract Infection (UTI) Referrals: Belinda Velez NP [Primary Care Provider] - 1-2 Weeks Prescriptions: Sulfa/Trimeth 800/160 (Ds) Tab [Bactrim DS] 1 tablet PO BID 10 Days #20 tab Home Medications: Ambulatory Orders Cyclobenzaprine HCl [Flexeril] 20 mg PO BEDTIME 06/03/15 Estradiol [Estrace] 1 mg PO BEDTIME 06/03/15 Lisinopril 20 mg PO DAILY 06/03/15 Sumatriptan Succinate 50 mg PO DAILY PRN 06/03/15 Diltiazem HCl 30 mg PO BID 12/28/15 Potassium Chloride Tab [Micro-K] 10 meq PO DAILY 12/28/15 QUEtiapine FUMARATE [SEROquel] 250 mg PO BEDTIME 01/06/17 Cyclobenzaprine HCl [Cyclobenzaprine Hydrochlo] 10 mg PO DAILY 05/21/17 Simvastatin 10 mg PO BEDTIME 05/21/17 Sucralfate 1 gm PO QID 05/21/17 cloNAZepam [KlonoPIN] 1.5 mg PO BEDTIME 05/21/17 B-Complex W/Biotin & Folic Aci [Super B-Complex] 2 tab PO DAILY 07/03/17 Black Pepper-Turmeric [Turmeric Curcumin Complex 500-3 mg] 1 cap PO BID 07/03/17 Multiple Vitamins W/ Minerals [Alive Once Daily Womens U] 1 tab PO DAILY 07/03/17 Oral Electrolytes [Thermotabs] 1 tab PO DAILY 07/03/17 Potassium Chloride [Micro-K] 20 meq PO BEDTIME 07/03/17 Propranolol HCl [Inderal] 40 mg PO BID 07/03/17 Sulfa/Trimeth 800/160 (Ds) Tab [Bactrim DS Tab] 1 ea PO Q12HR #20 tab 07/03/17 Baclofen 20 mg PO BID #30 tab 07/05/17 Promethazine Tab [Phenergan Tablet] 25 mg PO .Q4H PRN #30 tab 07/05/17 Topiramate [Topiramate ER] 25 mg PO DAILY #30 cap 07/05/17 Famotidine 20 mg PO BID #60 tab 07/29/17 predniSONE 20 mg PO DAILY #7 tab 10/17/17 predniSONE 20 mg PO DAILY #7 tab 10/17/17 Ondansetron [Zofran Odt] 4 mg PO Q4H PRN #10 tab 02/23/18 Promethazine Supp [Phenergan Suppository] 12.5 mg FL Q6HR PRN #10 sup 02/23/18 Sucralfate Tab [Carafate Tab] 1 gm PO QID #60 tab 02/23/18 Sulfa/Trimeth 800/160 (Ds) Tab [Bactrim DS] 1 tablet PO BID 10 Days #20 tab 04/29/18 Additional Instructions: Follow up with primary Md for Recheck 02 May 2018
[2018-04-29 14:41] VITALS: BP 118/76; O2SAT 95
== END 2018-04-29 13:55 | disposition home or self-care (01) ==
LOC: ER 13:03
DX: N39.0 Urinary tract infection, site not specified (principal); I51.9 Heart disease, unspecified; I10 Essential (primary) hypertension; E11.9 Type 2 diabetes mellitus without complications; F32.9 Major depressive disorder, single episode, unspecified; Z98.84 Bariatric surgery status; Z79.899 Other long term (current) drug therapy; Z88.0 Allergy status to penicillin

== ENCOUNTER 2018-06-13 11:00 | Emergency (ER) | payer OTHER ==
[2018-06-13 11:15] VITALS: TEMP 97.5
--- NOTE | 2018-06-13 12:24 | ED.PDOC ---
History of Present Illness - General Chief Complaint: Problem Stated Complaint: POSS UTI Time Seen by Provider: 06/13/18 11:55 Source: patient Exam Limitations: no limitations - History of Present Illness Initial Comments: C/O 3D FREQUENCY, DYSURIA. ALSO C/O NAUSEA AND MIGRAINE, WHICH FOR HER ARE TRIGGERED BY UTI'S. PT REQUESTS NAUSEA MED. SHE REQUESTS AMITRITYLINE DOSE FOR MIGRAINE, WHICH HAS HELPED IN PAST. SHE WOULD LIKE TO RESUME HER AMTRIP RX. SHE ALSO REQUESTS SOMETHING FOR PAIN. H/O FREQ UTI'S, APPROX Q2 MOS. IS MAKING FUTURE APPT WITH DR. WOOD, OROLOGY. Timing/Duration: constant Quality: burning Onset Location: suprapubic Radiation: none Activites at Onset: none Prior abdominal problems: similar symptoms Improving Factors: nothing Worsening Factors: nothing Associated Symptoms: nausea/vomiting Allergies/Adverse Reactions: Allergies Penicillins Allergy (Verified 10/16/17 19:19) Other Causes a rash and throat to swell horse serum Allergy (Uncoded 10/16/17 19:19) Unknown Home Medications: Ambulatory Orders Estradiol [Estrace] 1 mg PO BEDTIME 06/03/15 Diltiazem HCl 30 mg PO BID 12/28/15 Potassium Chloride Tab [Micro-K] 10 meq PO TID 12/28/15 Cyclobenzaprine HCl [Cyclobenzaprine Hydrochlo] 10 mg PO TID 05/21/17 Simvastatin 10 mg PO BEDTIME 05/21/17 cloNAZepam [KlonoPIN] 1.5 mg PO BEDTIME 05/21/17 Multiple Vitamins W/ Minerals [Alive Once Daily Womens U] 1 tab PO DAILY 07/03/17 Oral Electrolytes [Thermotabs] 1 tab PO DAILY 07/03/17 Amitriptyline HCl 10 mg PO BEDTIME 06/13/18 Amitriptyline HCl 10 mg PO BEDTIME #14 tab 06/13/18 Ergocalciferol [Vitamin D] 50,000 unit PO WKLY 06/13/18 Famotidine 40 mg PO BID 06/13/18 Fe Fum-Iron Polysacch Complex- [Fusion Plus] 1 cap PO DAILY 06/13/18 Lisinopril & Hydrochlorothiazi [Lisinopril/Hctz 20-12.5 mg] 1 tab PO DAILY 06/13/18 Ondansetron Odt [Zofran ODT] 8 mg SL TID PRN #15 tab 06/13/18 Polyethylene Glycol 3350 [Miralax] 17 gm PO DAILY 06/13/18 Propranolol HCl [Propranolol Hydrochloride] 40 mg PO BID 06/13/18 Quetiapine Fumarate 300 mg PO BEDTIME 06/13/18 Sulfa/Trimeth 800/160 (Ds) Tab [Bactrim DS Tab] 1 unit PO BID 14 Days #28 tab 06/13/18 Review of Systems - Review of Systems Constitutional: Denies: fever, malaise EENTM: Denies: ear pain, nose congestion Respiratory: Denies: cough, short of breath Cardiology: States: no symptoms reported Gastrointestinal/Abdominal: States: nausea. Denies: constipation, diarrhea, vomiting Genitourinary: States: dysuria, frequency Musculoskeletal: Denies: back pain, joint pain Skin: States: no symptoms reported Neurological: States: headache - SAME HER OTHER MIGRAINES Endocrine: States: no symptoms reported Hematologic/Lymphatic: States: no symptoms reported All other Systems: Reviewed and Negative Past Medical History (General) - Patient Medical History Hx Seizures: No Hx Stroke: No Hx Dementia: No Hx Asthma: No Hx of COPD: No Hx Cardiac Disorders: Yes Hx Congestive Heart Failure: No Hx Pacemaker: No Hx Hypertension: Yes Hx Thyroid Disease: No Hx Diabetes: Yes Hx Gastroesophageal Reflux: No Hx Renal Disease: No Hx Cancer: No Hx of HIV: No Hx Hepatitis C: No Hx MRSA: No MRSA Source:: nose Surgical History: appendectomy, Hysterectomy - Vaccination History Hx Tetanus, Diphtheria Vaccination: Yes Hx Influenza Vaccination: Yes Hx Pneumococcal Vaccination: No Immunizations Up to Date: Yes - Social History Hx Tobacco Use: No Hx Chewing Tobacco Use: No Hx Alcohol Use: No Hx Substance Use: No Hx Substance Use Treatment: No Hx Depression: No Hx Physical Abuse: No Hx Emotional Abuse: No Hx Suspected Abuse: No - Female History Patient : No Family Medical History - Family History Mother Family History: No Known Living Status: Hx Family Hypertension: Yes - mom Hx Family Diabetes: Yes Hx Family Cancer: Yes - dad-kidney Father Family History: No Known Living Status: Hx Family Hypertension: Yes Hx Family Cancer: Yes Hx Family;Other: dialysis towards end of life Physical Exam - Physical Exam General Appearance: Alert, Obese, Well Nourished Eyes, Ears, Nose, Throat Exam: PERRL/EOMI, normal ENT inspection, TMs normal, pharynx normal Neck: non-tender, full range of motion, supple, normal inspection Cardiovascular/Respiratory: regular rate, rhythm, no M/R/G Gastrointestinal/Abdominal: normal bowel sounds, no pulsatile mass, tenderness - SUPRAPUBIC Back Exam: normal inspection, no CVA tenderness Extremity: normal range of motion, normal inspection Neurologic: sponge hooker II-XII nml as tested, no motor/sensory deficits, normal mood/affect, oriented x 3 Skin Exam: normal color, warm/dry Lymphatic: no adenopathy Progress - Progress Progress: 06/13/18 12:41 UA SHOWS UTI WITH KETONES AND NITRITES. H/O RECURRENT UTI'S W/ RECENT 2 MOS AGO, THUS SENDING FOR UR CX. BACTRIM RX. RECURRENT, THUS 2 WK TX COURSE. NAUSEA - ZOFRAN IN ER AND RX. MIGRAINE - FROM UTI PER PT. 1ST DOSE TO RESTART HER HOME AMITRITYLINE IN ER AND RX FOR 14 D UNTIL F/U W/ PCP. Departure - Departure Clinical Impression: Nausea UTI (urinary tract infection) Qualifiers: Urinary tract infection type: acute cystitis Hematuria presence: without hematuria Qualified Code(s): N30.00 - Acute cystitis without hematuria Migraine Qualifiers: Migraine type: unspecified Status migrainosus presence: without status migrainosus Intractability: not intractable Qualified Code(s): G43.909 - Migraine, unspecified, not intractable, without status migrainosus Disposition: Discharge to Home or Self Care Condition: Good Departure Forms: ED Discharge - Pt. Copy, Patient Portal Self Enrollment Instructions: DI for Urinary Tract Infection (UTI) Diet: resume usual diet Activity: increase activity as tolerated Referrals: Belinda Velez NP [Primary Care Provider] - 1-2 Weeks Prescriptions: Amitriptyline HCl 10 mg PO BEDTIME #14 tab Ondansetron Odt [Zofran ODT] 8 mg SL TID PRN #15 tab PRN Reason: Nausea Sulfa/Trimeth 800/160 (Ds) Tab [Bactrim DS Tab] 1 unit PO BID 14 Days #28 tab Home Medications: Ambulatory Orders Estradiol [Estrace] 1 mg PO BEDTIME 06/03/15 Diltiazem HCl 30 mg PO BID 12/28/15 Potassium Chloride Tab [Micro-K] 10 meq PO TID 12/28/15 Cyclobenzaprine HCl [Cyclobenzaprine Hydrochlo] 10 mg PO TID 05/21/17 Simvastatin 10 mg PO BEDTIME 05/21/17 cloNAZepam [KlonoPIN] 1.5 mg PO BEDTIME 05/21/17 Multiple Vitamins W/ Minerals [Alive Once Daily Womens U] 1 tab PO DAILY 07/03/17 Oral Electrolytes [Thermotabs] 1 tab PO DAILY 07/03/17 Amitriptyline HCl 10 mg PO BEDTIME 06/13/18 Amitriptyline HCl 10 mg PO BEDTIME #14 tab 06/13/18 Ergocalciferol [Vitamin D] 50,000 unit PO WKLY 06/13/18 Famotidine 40 mg PO BID 06/13/18 Fe Fum-Iron Polysacch Complex- [Fusion Plus] 1 cap PO DAILY 06/13/18 Lisinopril & Hydrochlorothiazi [Lisinopril/Hctz 20-12.5 mg] 1 tab PO DAILY 06/13/18 Ondansetron Odt [Zofran ODT] 8 mg SL TID PRN #15 tab 06/13/18 Polyethylene Glycol 3350 [Miralax] 17 gm PO DAILY 06/13/18 Propranolol HCl [Propranolol Hydrochloride] 40 mg PO BID 06/13/18 Quetiapine Fumarate 300 mg PO BEDTIME 06/13/18 Sulfa/Trimeth 800/160 (Ds) Tab [Bactrim DS Tab] 1 unit PO BID 14 Days #28 tab 06/13/18 Additional Instructions: I have prescribed 14 days of the Amitriptyline to get you started. Please see your regular doctor to continue the prescription. Please complete the full 2 weeks of antibiotics even if you are feeling better, in order to fully kill the urine bacteria. Please call Dr. Combs, urologist, to make an appointment for the recurrent urine infections.
[2018-06-13] MEDS ORDERED: AMITRIPTYLINE HCL 10 MG TAB PO ONE (12:26)
[2018-06-13] MEDS ORDERED: ONDANSETRON ODT 8 MG TAB SL ONE (12:27)
[2018-06-13] MEDS ORDERED: SULFA/TRIMETH 800/160 (DS) TAB 1 EA TAB PO ONE (12:28)
[2018-06-13] MEDS ORDERED: HYDROcodone 7.5MG/APAP 325MG 1 EA TAB PO ONE (12:35)
[2018-06-13] MEDS ORDERED: HYDROcodone 7.5MG/APAP 325MG 1 EA TAB ONE (12:36)
[2018-06-13 13:29] VITALS: BP 125/104; O2SAT 97
== END 2018-06-13 13:29 | disposition home or self-care (01) ==
LOC: ER 11:00
DX: N30.00 Acute cystitis without hematuria (principal); G43.909 Migraine, unspecified, not intractable, without status migrainosus; I51.9 Heart disease, unspecified; I10 Essential (primary) hypertension; E11.9 Type 2 diabetes mellitus without complications; Z79.899 Other long term (current) drug therapy; Z88.0 Allergy status to penicillin

== ENCOUNTER 2018-06-26 18:27 | Emergency (ER) | payer OTHER ==
--- NOTE | 2018-06-26 18:45 | ED.PDOC ---
History of Present Illness - General Chief Complaint: Lower Extremity Injury Stated Complaint: right foot pain Time Seen by Provider: 06/26/18 18:41 Source: patient Exam Limitations: no limitations - History of Present Illness Initial Comments: RIGHT FOOT PAIN AFTER A FALL TWO DAYS AGO, SEEMS TO HURT MORE ON THE LATERAL ASPECT OF THE RIGHT FOOT. SHE SES A CANE FOR CHRONIC BACK PAIN, ON AN INSULIN PUMP. Allergies/Adverse Reactions: Allergies Penicillins Allergy (Verified 06/26/18 18:41) Other Causes a rash and throat to swell horse serum Allergy (Uncoded 06/26/18 18:41) Unknown Home Medications: Ambulatory Orders Estradiol [Estrace] 1 mg PO BEDTIME 06/03/15 Diltiazem HCl 30 mg PO BID 12/28/15 Potassium Chloride Tab [Micro-K] 10 meq PO TID 12/28/15 Cyclobenzaprine HCl [Cyclobenzaprine Hydrochlo] 10 mg PO TID 05/21/17 Simvastatin 10 mg PO BEDTIME 05/21/17 cloNAZepam [KlonoPIN] 1.5 mg PO BEDTIME 05/21/17 Multiple Vitamins W/ Minerals [Alive Once Daily Womens U] 1 tab PO DAILY 07/03/17 Oral Electrolytes [Thermotabs] 1 tab PO DAILY 07/03/17 Amitriptyline HCl 10 mg PO BEDTIME 06/13/18 Amitriptyline HCl 10 mg PO BEDTIME #14 tab 06/13/18 Ergocalciferol [Vitamin D] 50,000 unit PO WKLY 06/13/18 Famotidine 40 mg PO BID 06/13/18 Fe Fum-Iron Polysacch Complex- [Fusion Plus] 1 cap PO DAILY 06/13/18 Lisinopril & Hydrochlorothiazi [Lisinopril/Hctz 20-12.5 mg] 1 tab PO DAILY 06/13/18 Ondansetron Odt [Zofran ODT] 8 mg SL TID PRN #15 tab 06/13/18 Polyethylene Glycol 3350 [Miralax] 17 gm PO DAILY 06/13/18 Propranolol HCl [Propranolol Hydrochloride] 40 mg PO BID 06/13/18 Quetiapine Fumarate 300 mg PO BEDTIME 06/13/18 Sulfa/Trimeth 800/160 (Ds) Tab [Bactrim DS Tab] 1 unit PO BID 14 Days #28 tab 0 06/13/18 Naproxen [Naprosyn] 250 mg PO BID #14 tab 06/26/18 Review of Systems - Review of Systems Constitutional: States: no symptoms reported EENTM: States: no symptoms reported Respiratory: States: no symptoms reported Cardiology: States: no symptoms reported Gastrointestinal/Abdominal: States: no symptoms reported Genitourinary: States: no symptoms reported Musculoskeletal: States: joint swelling, muscle pain Skin: States: no symptoms reported Neurological: States: no symptoms reported Endocrine: States: no symptoms reported Hematologic/Lymphatic: States: no symptoms reported Past Medical History (General) - Patient Medical History Hx Seizures: No Hx Stroke: No Hx Dementia: No Hx Asthma: No Hx of COPD: No Hx Cardiac Disorders: Yes Hx Congestive Heart Failure: No Hx Pacemaker: No Hx Hypertension: Yes Hx Thyroid Disease: No Hx Diabetes: Yes Hx Gastroesophageal Reflux: No Hx Renal Disease: No Hx Cancer: No Hx of HIV: No Hx Hepatitis C: No Hx MRSA: No MRSA Source:: nose - Vaccination History Hx Tetanus, Diphtheria Vaccination: No Hx Influenza Vaccination: Yes Hx Pneumococcal Vaccination: No Immunizations Up to Date: No - Social History Hx Tobacco Use: No Hx Chewing Tobacco Use: No Hx Alcohol Use: No Hx Substance Use: No Hx Substance Use Treatment: No Hx Depression: No Hx Physical Abuse: No Hx Emotional Abuse: No Hx Suspected Abuse: No - Female History Patient is a Female of Child Bearing Age (10 -59 yrs old): No Patient : No Family Medical History - Family History Mother Family History: No Known Living Status: Hx Family Hypertension: Yes - mom Hx Family Diabetes: Yes Hx Family Cancer: Yes - dad-kidney Father Family History: No Known Living Status: Hx Family Hypertension: Yes Hx Family Cancer: Yes Hx Family;Other: dialysis towards end of life Physical Exam - Physical Exam General Appearance: Alert, No apparent distress, Well Developed, Well Groomed, Well Hydrated, Well Nourished Eyes, Ears, Nose, Throat: PERRL/EOMI, normal ENT inspection Neck: non-tender, full range of motion, supple, normal inspection Cardiovascular/Respiratory: regular rate, rhythm, no M/R/G, normal peripheral pulses, no JVD, normal breath sounds Gastrointestinal/Abdominal: non-tender, no organomegaly, no hernia Back: normal inspection, no CVA tenderness, no vertebral tenderness Thigh/Hip: normal inspection, non-tender, no evidence of injury Leg: normal inspection, non-tender, no evidence of injury Foot: normal inspection, other - NO DEFORMITY AND NO BRUISING, TEMDER TO THE LATERAL ASPECT OF THE RIGHT FOOT. DTR - Lower Extremities: 2+: Achilles, left, Achilles, right Skin: normal color Progress - Progress Progress: 06/26/18 19:25 FOOT X-RAY: THERE IS A NON DISPLAACED FRACTURE OF THE PROXIMAL 5TH METATARSAL. Departure - Departure Clinical Impression: Fracture of fifth metatarsal bone of right foot Qualifiers: Encounter type: initial encounter Fracture type: closed Fracture alignment: nondisplaced Qualified Code(s): S92.354A - Nondisplaced fracture of fifth metatarsal bone, right foot, initial encounter for closed fracture Time of Disposition: 19:28 Disposition: Discharge to Home or Self Care Condition: Good Departure Forms: ED Discharge - Pt. Copy, Patient Portal Self Enrollment Instructions: Foot Fracture (DC) Activity: ambulate only with walker Referrals: Belinda Velez NP [Primary Care Provider] - 1-2 Weeks David Costello MD [Active Staff] - 1-5 Days Prescriptions: Naproxen [Naprosyn] 250 mg PO BID #14 tab Home Medications: Ambulatory Orders Estradiol [Estrace] 1 mg PO BEDTIME 06/03/15 Diltiazem HCl 30 mg PO BID 12/28/15 Potassium Chloride Tab [Micro-K] 10 meq PO TID 12/28/15 Cyclobenzaprine HCl [Cyclobenzaprine Hydrochlo] 10 mg PO TID 05/21/17 Simvastatin 10 mg PO BEDTIME 05/21/17 cloNAZepam [KlonoPIN] 1.5 mg PO BEDTIME 05/21/17 Multiple Vitamins W/ Minerals [Alive Once Daily Womens U] 1 tab PO DAILY 07/03/17 Oral Electrolytes [Thermotabs] 1 tab PO DAILY 07/03/17 Amitriptyline HCl 10 mg PO BEDTIME 06/13/18 Amitriptyline HCl 10 mg PO BEDTIME #14 tab 06/13/18 Ergocalciferol [Vitamin D] 50,000 unit PO WKLY 06/13/18 Famotidine 40 mg PO BID 06/13/18 Fe Fum-Iron Polysacch Complex- [Fusion Plus] 1 cap PO DAILY 06/13/18 Lisinopril & Hydrochlorothiazi [Lisinopril/Hctz 20-12.5 mg] 1 tab PO DAILY 06/13/18 Ondansetron Odt [Zofran ODT] 8 mg SL TID PRN #15 tab 06/13/18 Polyethylene Glycol 3350 [Miralax] 17 gm PO DAILY 06/13/18 Propranolol HCl [Propranolol Hydrochloride] 40 mg PO BID 06/13/18 Quetiapine Fumarate 300 mg PO BEDTIME 06/13/18 Sulfa/Trimeth 800/160 (Ds) Tab [Bactrim DS Tab] 1 unit PO BID 14 Days #28 tab 06/13/18 Naproxen [Naprosyn] 250 mg PO BID #14 tab 06/26/18 Additional Instructions: WEAR A TIGHT TENNIS SHOE AND F/U WITH DR. COSTELLO.
--- NOTE | 2018-06-26 19:03 | RAD ---
EXAM: XR Right Foot Complete, 3 or More Views CLINICAL HISTORY: 62 years old and is Female; right foot injury TECHNIQUE: Frontal, lateral and oblique views of the right foot. COMPARISON: No relevant prior studies available. FINDINGS: Limitations: None. Bones/joints: There is a nondisplaced fracture of the proximal fifth metatarsal. There is age-indeterminate dislocation at the second proximal interphalangeal joint. There is diffuse narrowing and ankylosis of the interphalangeal and metatarsophalangeal joints. There is a small plantar calcaneal spur. Soft tissues: Unremarkable. No radiopaque foreign body. IMPRESSION: 1. There is a nondisplaced fracture of the proximal fifth metatarsal. 2. Degenerative changes as above. Electronically signed by: Nikkie Strong MD 06/26/2018 7:01 PM CDT
[2018-06-26 19:37] VITALS: BP 122/84; TEMP 97.8; O2SAT 94
== END 2018-06-26 19:44 | disposition home or self-care (01) ==
LOC: ER 18:27
DX: S92.354A Nondisplaced fracture of fifth metatarsal bone, right foot, initial encounter for closed fracture (principal); I51.9 Heart disease, unspecified; I10 Essential (primary) hypertension; E11.9 Type 2 diabetes mellitus without complications; Z79.899 Other long term (current) drug therapy; Z88.0 Allergy status to penicillin; Z79.4 Long term (current) use of insulin; W19.XXXA Unspecified fall, initial encounter; Y92.9 Unspecified place or not applicable

== ENCOUNTER → 2018-07-24 | Outpatient (CLI) | payer OTHER, MEDICARE ==
--- NOTE | 2018-07-25 11:19 | RAD ---
One Radiographs of the Abdomen. Indication: Renal stones Comparison: February 20, 2018. Impression: Numerous tiny calcific densities throughout the pelvis likely represent calcified phleboliths. Right ureteral catheter has removed. There are several punctate calcific densities projecting over both kidneys likely reflecting millimetric stones. The largest at the inferior right kidney measures up to [address] could better evaluate as clinically indicated. Mild constipation noted without findings of obstruction. Degenerative changes of the spine noted. Electronically signed by: Sudheer Olmedo MD 07/25/2018 11:17 AM CDT
== END ==
LOC: RAD 14:01
PROVIDERS: ATTEND Urology
DX: N20.0 Calculus of kidney (principal); K59.00 Constipation, unspecified

== ENCOUNTER → 2018-08-25 | Outpatient (CLI) | payer MEDICARE, OTHER | LOC: YCFC.O 15:53 | PROVIDERS: ATTEND Nurse Practitioner Family | DX: R30.0 Dysuria (principal) ==

== ENCOUNTER 2018-10-14 14:38 | Emergency (ER) | payer MEDICARE, OTHER ==
[2018-10-14 15:01] VITALS: TEMP 97.6
[2018-10-14 17:12] VITALS: BP 125/86
[2018-10-14 17:16] VITALS: O2SAT 99
== END 2018-10-14 16:55 | disposition home or self-care (01) ==
LOC: ER 14:38
DX: G43.709 Chronic migraine without aura, not intractable, without status migrainosus (principal); F31.9 Bipolar disorder, unspecified; K21.9 Gastro-esophageal reflux disease without esophagitis; I10 Essential (primary) hypertension; I51.9 Heart disease, unspecified; Z79.899 Other long term (current) drug therapy; Z88.0 Allergy status to penicillin
CPT/HCPCS: J0595; J2550

== ENCOUNTER 2018-11-20 15:59 | Emergency (ER) | payer MEDICARE, OTHER ==
[2018-11-20] MEDS ORDERED: ALUMINUM & MAGNESIUM HYDROXIDE 30 ML UD PO ONE (16:45)
[2018-11-20] MEDS ORDERED: SODIUM CHLORIDE 0.9% 1000ML 1,000 ML IVS ONE (16:45)
[2018-11-20] MEDS ORDERED: ONDANSETRON ODT 8 MG TAB SL ONE (16:45)
--- NOTE | 2018-11-20 17:59 | RAD ---
EXAM: XR Abdomen, 2 Views and XR Chest, 1 View CLINICAL HISTORY: nvd 4 days TECHNIQUE: Frontal view of the chest, frontal view of the abdomen/pelvis and upright or decubitus view of the abdomen. COMPARISON: 07/24/2018. FINDINGS: Limitations: None. Lungs: Unremarkable. No consolidation. Pleural space: Unremarkable. No pneumothorax. Heart: Unremarkable. No cardiomegaly. Mediastinum: Unremarkable. Intraperitoneal space: No free air. Gastrointestinal tract: Air and stool scattered throughout nondilated intestinal loops without obstruction. Bones/joints: Degenerative changes present in the spine. IMPRESSION: No acute findings in the chest, abdomen or pelvis. Electronically signed by: Nikkie Strong MD 11/20/2018 5:58 PM CDT
[2018-11-20] MEDS ORDERED: FLUCONAZOLE 100 MG TAB PO ONE (18:21)
[2018-11-20] MEDS ORDERED: PROMETHAZINE TAB (ER DISP) 25 MG TAB PO ONE (18:26)
--- NOTE | 2018-11-20 18:28 | ED.PDOC ---
History of Present Illness - General Chief Complaint: GI Problem Time Seen by Provider: 11/20/18 16:12 Source: patient Exam Limitations: no limitations - History of Present Illness Initial Comments: The patient is a 63-year-old female presenting to emergency room secondary to 4 days of GI symptoms including intermittent diarrhea as well as intermittent nausea and vomiting. She feels like she is dehydrated. They generalized abdominal discomfort. No point pain. No rebound or peritoneal signs. No definite high-grade fevers. No chest pain. No syncope. Timing/Duration: other - 4 days Severity: moderate Improving Factors: nothing Worsening Factors: nothing Associated Symptoms: loss of appetite, malaise, nausea/vomiting, weakness - eneralized Allergies/Adverse Reactions: Allergies Penicillins Allergy (Verified 10/14/18 15:02) Other Causes a rash and throat to swell horse serum Allergy (Uncoded 06/26/18 18:41) Unknown Home Medications: Ambulatory Orders Estradiol [Estrace] 1 mg PO BEDTIME 06/03/15 Diltiazem HCl 30 mg PO BID 12/28/15 Potassium Chloride Tab [Micro-K] 10 meq PO TID 12/28/15 Cyclobenzaprine HCl [Cyclobenzaprine Hydrochlo] 10 mg PO TID 05/21/17 Simvastatin 10 mg PO BEDTIME 05/21/17 Multiple Vitamins W/ Minerals [Alive Once Daily Womens U] 1 tab PO DAILY 07/03/17 Oral Electrolytes [Thermotabs] 1 tab PO DAILY 07/03/17 Famotidine 40 mg PO DAILY 06/13/18 Lisinopril & Hydrochlorothiazi [Lisinopril/Hctz 20-12.5 mg] 1 tab PO DAILY 06/13/18 Polyethylene Glycol 3350 [Miralax] 17 gm PO DAILY 06/13/18 Propranolol HCl [Propranolol Hydrochloride] 40 mg PO BID 06/13/18 Quetiapine Fumarate 300 mg PO BEDTIME 06/13/18 Naproxen [Naprosyn] 250 mg PO BID #14 tab 06/26/18 Amitriptyline HCl [Elavil] 25 mg PO BEDTIME 07/04/18 Clonazepam 1.5 mg PO BEDTIME 07/04/18 Cefdinir 300 mg PO BID #18 capsule 07/05/18 Topiramate [Topamax] 25 mg PO DAILY #30 tab 10/14/18 Ondansetron Odt [Zofran ODT] 4 mg PO Q8HR PRN #5 tab 11/20/18 Sucralfate Tab [Carafate Tab] 1 gm PO QID #60 tab 11/20/18 Review of Systems - Review of Systems Constitutional: States: malaise, weakness - generalized EENTM: States: no symptoms reported Respiratory: States: no symptoms reported Cardiology: States: no symptoms reported Gastrointestinal/Abdominal: States: abdominal pain - generalized, diarrhea, nausea, vomiting Musculoskeletal: States: no symptoms reported Skin: States: no symptoms reported Neurological: States: no symptoms reported Endocrine: States: no symptoms reported All other Systems: No Change from Baseline Past Medical History (General) - Patient Medical History Hx Seizures: No Hx Stroke: No Hx Dementia: No Hx Asthma: No Hx of COPD: No Hx Cardiac Disorders: Yes Hx Congestive Heart Failure: No Hx Pacemaker: No Hx Hypertension: Yes Hx Thyroid Disease: No Hx Diabetes: No Hx Gastroesophageal Reflux: Yes Hx Renal Disease: No Hx Cancer: No Hx of HIV: No Hx Hepatitis C: No Hx MRSA: No MRSA Source:: nose - Vaccination History Hx Tetanus, Diphtheria Vaccination: No Hx Influenza Vaccination: Yes Hx Pneumococcal Vaccination: No - Social History Hx Tobacco Use: No Hx Chewing Tobacco Use: No Hx Alcohol Use: Yes - Rarely Hx Substance Use: No Hx Substance Use Treatment: No Hx Depression: Yes - Bipolar Hx Physical Abuse: No Hx Emotional Abuse: No Hx Suspected Abuse: No - Female History Patient : No Family Medical History - Family History Mother Family History: No Known Living Status: Hx Family Hypertension: Yes - mom Hx Family Diabetes: Yes Hx Family Cancer: Yes - dad-kidney Father Family History: No Known Living Status: Hx Family Hypertension: Yes Hx Family Cancer: Yes Hx Family;Other: dialysis towards end of life Physical Exam - Physical Exam General Appearance: Alert, Comfortable, No apparent distress Eye Exam: bilateral normal Ears, Nose, Throat: hearing grossly normal, normal ENT inspection Neck: non-tender, supple Respiratory: lungs clear, normal breath sounds, no respiratory distress, no accessory muscle use Cardiovascular/Chest: normal peripheral pulses, regular rate, rhythm, no edema Peripheral Pulses: radial,right: 2+, radial,left: 2+, dorsalis pedis,right: 2+, dorsalis pedis,left: 2+ Gastrointestinal/Abdominal: soft, other - vague diffuse discomfort. No rebound or peritoneal signs. No palpable mass. Back Exam: no CVA tenderness, no vertebral tenderness Extremity: non-tender, normal inspection, no pedal edema, normal capillary refill Neurologic: director perioperative II-XII nml as tested, alert, normal mood/affect, oriented x 3 Skin Exam: normal color Progress - Progress Progress: 11/20/18 18:29 the patient is a 63-year-old female presenting to the emergency room secondary to what appears to be a viral gastroenteritis. Laboratory work and x- rays are reassuring. She does have some small amount of yeast in her urine. She did receive a dose of Diflucan here today. She needs to keep herself well hydrated. She'll be written for Zofran as needed to control nausea and vomiting. She'll also be written for Carafate for the next week to help reduce gastritis symptoms. She can follow-up with her primary care doctor towards the end of the week. ER warnings were given. 11/20/18 18:32 edith vaughn [id number] - Results/Orders Results/Orders: acute abdominal series shows no acute pathology. Laboratory Results - last 24 hr 11/20/18 11/20/18 11/20/18 17:08 17:08 17:25 WBC 8.4 RBC 4.37 Hgb 14.0 Hct 41.0 MCV 93.8 MCH 32.1 H MCHC 34.2 RDW 13.1 Plt Count 185 MPV 9.6 Absolute Neuts (auto) 5.50 Absolute Lymphs (auto) 1.90 Absolute Monos (auto) 0.80 Absolute Eos (auto) 0.10 Absolute Basos (auto) 0.10 Neutrophils % 65.4 Lymphocytes % 22.9 Monocytes % 10.1 H Eosinophils % 0.9 L Basophils % 0.7 Sodium 134 L Potassium 3.8 Chloride 100 L Carbon Dioxide 19 L Anion Gap 18.8 H BUN 19 H Creatinine 1.03 BUN/Creatinine Ratio 18.4 Random Glucose 112 H Serum Osmolality 271.2 L Calcium 9.9 Magnesium 1.6 L Total Bilirubin 0.8 AST 37 ALT 21 Alkaline Phosphatase 38 L Creatine Kinase 115 CK-MB (CK-2) 3.6 CK-MB (CK-2) % Not Reportable Troponin I < 0.02 Serum Total Protein 7.9 Albumin 4.3 Globulin 3.6 H Albumin/Globulin Ratio 1.2 Amylase 65 Lipase 23 Urine Color Yellow Urine Appearance Sl cloudy Urine pH 7.5 Ur Specific Wallace 1.015 Urine Protein Negative Urine Glucose (UA) Negative Urine Ketones Negative Urine Blood Trace-intact H Urine Nitrite Negative Urine Bilirubin Negative Urine Urobilinogen 0.2 Ur Leukocyte Esterase Trace H Urine RBC 0-1 Urine WBC 10-20 H Ur Epithelial Cells 1-3 Amorphous Sediment 1+ Urine Bacteria Rare Urine Yeast 1+ budding H Departure - Departure Clinical Impression: Viral gastroenteritis, Yeast UTI Disposition: Discharge to Home or Self Care Condition: Fair Departure Forms: ED Discharge - Pt. Copy, Patient Portal Self Enrollment Instructions: DI for Gastritis Diet: regular diet Activity: increase activity as tolerated Referrals: Belinda Velez NP [Primary Care Provider] - 1-2 Weeks Prescriptions: Ondansetron Odt [Zofran ODT] 4 mg PO Q8HR PRN #5 tab PRN Reason: Nausea--Moderate Sucralfate Tab [Carafate Tab] 1 gm PO QID #60 tab Home Medications: Ambulatory Orders Estradiol [Estrace] 1 mg PO BEDTIME 06/03/15 Diltiazem HCl 30 mg PO BID 12/28/15 Potassium Chloride Tab [Micro-K] 10 meq PO TID 12/28/15 Cyclobenzaprine HCl [Cyclobenzaprine Hydrochlo] 10 mg PO TID 05/21/17 Simvastatin 10 mg PO BEDTIME 05/21/17 Multiple Vitamins W/ Minerals [Alive Once Daily Womens U] 1 tab PO DAILY 07/03/17 Oral Electrolytes [Thermotabs] 1 tab PO DAILY 07/03/17 Famotidine 40 mg PO DAILY 06/13/18 Lisinopril & Hydrochlorothiazi [Lisinopril/Hctz 20-12.5 mg] 1 tab PO DAILY 06/13/18 Polyethylene Glycol 3350 [Miralax] 17 gm PO DAILY 06/13/18 Propranolol HCl [Propranolol Hydrochloride] 40 mg PO BID 06/13/18 Quetiapine Fumarate 300 mg PO BEDTIME 06/13/18 Naproxen [Naprosyn] 250 mg PO BID #14 tab 06/26/18 Amitriptyline HCl [Elavil] 25 mg PO BEDTIME 07/04/18 Clonazepam 1.5 mg PO BEDTIME 07/04/18 Cefdinir 300 mg PO BID #18 capsule 07/05/18 Topiramate [Topamax] 25 mg PO DAILY #30 tab 10/14/18 Ondansetron Odt [Zofran ODT] 4 mg PO Q8HR PRN #5 tab 11/20/18 Sucralfate Tab [Carafate Tab] 1 gm PO QID #60 tab 11/20/18 Additional Instructions: the patient is a 63-year-old female presenting to the emergency room secondary to what appears to be a viral gastroenteritis. Laboratory work and x- rays are reassuring. She does have some small amount of yeast in her urine. She did receive a dose of Diflucan here today. She needs to keep herself well hydrated. She'll be written for Zofran as needed to control nausea and vomiting. She'll also be written for Carafate for the next week to help reduce gastritis symptoms. She can follow-up with her primary care doctor towards the end of the week. ER warnings were given.
[2018-11-20] MEDS ORDERED: PROMETHAZINE HCL 25 MG TAB PO ONE (18:44)
[2018-11-20] MEDS ORDERED: PROMETHAZINE HCL 25 MG TAB ONE (18:45)
[2018-11-20 18:58] VITALS: BP 115/89; O2SAT 98
[2018-11-20 19:02] VITALS: TEMP 97.2
== END 2018-11-20 19:00 | disposition home or self-care (01) ==
LOC: ER 15:59
DX: A08.4 Viral intestinal infection, unspecified (principal); B37.49 Other urogenital candidiasis; I10 Essential (primary) hypertension; K21.9 Gastro-esophageal reflux disease without esophagitis; F31.9 Bipolar disorder, unspecified; I51.9 Heart disease, unspecified; Z79.899 Other long term (current) drug therapy; Z88.0 Allergy status to penicillin
CPT/HCPCS: 36415; 74019; 80053; 81001; 82150; 82550; 82553; 83690; 83735; 84484; 85025; 87086; 87502; J7030; Q0169

== ENCOUNTER 2019-03-23 13:30 | Emergency (ER) | payer MEDICARE, OTHER ==
[2019-03-23] MEDS ORDERED: SODIUM CHLORIDE 0.9% 1000ML 1,000 ML IVS PRN (13:54)
[2019-03-23] MEDS ORDERED: KETOROLAC TROMETHAMINE INJ 30 MG/ML VIAL IV ONE (13:54)
[2019-03-23] MEDS ORDERED: SODIUM CHLORIDE 0.9% (FLUSH) 10 ML SYG IV PRN (13:54)
[2019-03-23] MEDS ORDERED: PROMETHAZINE HCL INJ 12.5 MG in SODIUM CHLORIDE 0.9% 50ML 50 ML IVPB ONE (13:56)
[2019-03-23] MEDS ORDERED: PROMETHAZINE HCL INJ 25 MG/ML VIAL ONE (14:16)
[2019-03-23] MEDS ORDERED: SODIUM CHLORIDE 0.9% 50ML 50 ML ONE (14:17)
--- NOTE | 2019-03-23 14:27 | ED.PDOC ---
History of Present Illness - General Chief Complaint: GI Problem Stated Complaint: N/V/D, Abdominal pain Time Seen by Provider: 03/23/19 13:47 Information Source: patient, RN notes reviewed, Vital Signs reviewed Exam Limitations: no limitations Additional Information: Nausea/vomiting/diarrhea with associated bilateral upper abdominal pain. Symptoms began approximately 3 hours ago. No suspicious foods, no recent travel. Patient takes Macrobid long-term for UTI prevention, no other antibiotic use recently. No recent hospital admissions. - History of Present Illness Abdominal Pain Onset Location: RUQ, LUQ, epigastric Pain Radiation: no radiation Quality: moderate Timing/Duration: 1-3 hours Improving Factors: nothing Worsening Factors: nothing Associated Symptoms: diarrhea - Watery, nonbloody, nausea/vomiting - Nonbilious, nonbloody Past Medical History (General) - Patient Medical History Hx Seizures: No Hx Stroke: No Hx Dementia: No Hx Asthma: No Hx of COPD: No Hx Cardiac Disorders: No Hx Congestive Heart Failure: No Hx Pacemaker: No Hx Hypertension: Yes Hx Thyroid Disease: No Hx Diabetes: No Hx Gastroesophageal Reflux: Yes Hx Renal Disease: No Hx Cancer: No Hx of HIV: No Hx Hepatitis C: No Hx MRSA: No MRSA Source:: nose Surgical History: gastric bypass, Hysterectomy, other - Vaccination History Hx Tetanus, Diphtheria Vaccination: No Hx Influenza Vaccination: Yes Hx Pneumococcal Vaccination: No - Social History Hx Tobacco Use: No Hx Chewing Tobacco Use: No Hx Alcohol Use: Yes Hx Substance Use: No Hx Substance Use Treatment: No Hx Depression: No Hx Physical Abuse: No Hx Emotional Abuse: No Hx Suspected Abuse: No - Female History Patient is a Female of Child Bearing Age (10 -59 yrs old): No Patient : No Family Medical History - Family History Mother Family History: No Known Living Status: Hx Family Hypertension: Yes - mom Hx Family Diabetes: Yes Hx Family Cancer: Yes - dad-kidney Father Family History: No Known Living Status: Hx Family Hypertension: Yes Hx Family Cancer: Yes Hx Family;Other: dialysis towards end of life Physical Exam - Physical Exam General Appearance: Alert, No apparent distress Eyes, Ears, Nose, Throat Exam: PERRL/EOMI, normal ENT inspection, TMs normal, pharynx normal Neck: non-tender, full range of motion Respiratory: chest non-tender, normal breath sounds, no respiratory distress, no accessory muscle use Cardiovascular/Chest: normal peripheral pulses, regular rate, rhythm, no edema Peripheral Pulses: No deficit Gastrointestinal/Abdominal: soft, tenderness - Most notably in the epigastric and left upper quadrant area. No rebound or guarding. Abdomen is not distended. Back Exam: normal inspection, no CVA tenderness, no vertebral tenderness Extremity: normal range of motion, non-tender, no pedal edema Neurologic: no motor/sensory deficits, alert, oriented x 3 Progress - Progress Progress: 03/23/19 15:58 Laboratory Tests 03/23/19 03/23/19 03/23/19 14:10 14:10 14:10 WBC 10.2 RBC 4.10 L Hgb 13.0 Hct 37.9 MCV 92.4 MCH 31.8 H MCHC 34.4 RDW 12.8 Plt Count 176 MPV 8.7 Absolute Neuts (auto) 7.60 H Absolute Lymphs (auto) 1.20 Absolute Monos (auto) 1.00 H Absolute Eos (auto) 0.20 Absolute Basos (auto) 0.10 Neutrophils % 74.7 Lymphocytes % 12.2 L Monocytes % 10.3 H Eosinophils % 2.2 Basophils % 0.6 Sodium 135 Potassium 3.6 Chloride 100 L Carbon Dioxide 26 Anion Gap 12.6 BUN 18 Creatinine 0.87 BUN/Creatinine Ratio 20.7 H Random Glucose 127 H Serum Osmolality 273.6 L Calcium 9.4 Total Bilirubin 0.8 Direct Bilirubin 0.2 Indirect Bilirubin 0.6 AST 21 ALT 14 Alkaline Phosphatase 42 Serum Total Protein 7.0 Albumin 3.8 Lipase 266 H 03/23/19 3:55 PM Ultrasound report reviewed. No gallbladder wall thickening, no gallstones, no evidence of acute gallbladder pathology. She has a fatty liver. Pancreas is unremarkable. 03/23/19 4:10 PM Recheck. Pain markedly improved. Nausea improved. Patient is tolerating p.o. Discussed admission versus discharge, patient would prefer to try outpatient therapy with pain control and antiemetics. Discussed importance of low-fat diet. Recommended follow-up with PCP in 3 to 4 days for recheck. Strict warnings given to return emergency room for worsening pain, fever, intractable vomiting, vomiting blood/blood in stool, or any other concerns. - EKG/XRAY/CT EKG: Sinus, Tachy, nonspecific ST T wave Chg Comments: Sinus tachycardia, rate 103, left axis, normal intervals, nonspecific ST an Departure - Departure Clinical Impression: Acute diarrhea Vomiting Qualifiers: Vomiting type: unspecified Vomiting Intractability: non-intractable Nausea presence: with nausea Qualified Code(s): R11.2 - Nausea with vomiting, unspecified Pancreatitis Qualifiers: Chronicity: acute Pancreatitis type: idiopathic Acute pancreatitis complication: no infection or necrosis Qualified Code(s): K85.00 - Idiopathic acute pancreatitis without necrosis or infection Disposition: Discharge to Home or Self Care Condition: Good Departure Forms: ED Discharge - Pt. Copy, Patient Portal Self Enrollment Diet: low fat, low cholesterol Activity: increase activity as tolerated Referrals: Belinda Velez, SPECIFICATIONS WRITER [Primary Care Provider] - 1-2 Weeks Prescriptions: Hydrocodone-Acetaminophen [Cranford 5-325 mg] 1 - 2 tab PO Q6HR #20 tab Promethazine Tab [Phenergan Tablet] 25 mg PO Q6HR #12 tab Home Medications: Ambulatory Orders Estradiol [Estrace] 1 mg PO BEDTIME 06/03/15 Diltiazem HCl 30 mg PO BID 12/28/15 Potassium Chloride Tab [Micro-K] 10 meq PO TID 12/28/15 Cyclobenzaprine HCl [Cyclobenzaprine Hydrochlo] 10 mg PO TID 05/21/17 Simvastatin 10 mg PO BEDTIME 05/21/17 Multiple Vitamins W/ Minerals [Alive Once Daily Womens U] 1 tab PO DAILY 07/03/17 Oral Electrolytes [Thermotabs] 1 tab PO DAILY 07/03/17 Famotidine 40 mg PO DAILY 06/13/18 Lisinopril & Hydrochlorothiazi [Lisinopril/Hctz 20-12.5 mg] 1 tab PO DAILY 06/13/18 Polyethylene Glycol 3350 [Miralax] 17 gm PO DAILY 06/13/18 Propranolol HCl [Propranolol Hydrochloride] 40 mg PO BID 06/13/18 Quetiapine Fumarate 300 mg PO BEDTIME 06/13/18 Naproxen [Naprosyn] 250 mg PO BID #14 tab 06/26/18 Amitriptyline HCl [Elavil] 25 mg PO BEDTIME 07/04/18 Clonazepam 1.5 mg PO BEDTIME 07/04/18 Cefdinir 300 mg PO BID #18 capsule 07/05/18 Topiramate [Topamax] 25 mg PO DAILY #30 tab 10/14/18 Ondansetron Odt [Zofran ODT] 4 mg PO Q8HR PRN #5 tab 11/20/18 Sucralfate Tab [Carafate Tab] 1 gm PO QID #60 tab 11/20/18 Hydrocodone-Acetaminophen [Cranford 5-325 mg] 1 - 2 tab PO Q6HR #20 tab 03/23/19 Promethazine Tab [Phenergan Tablet] 25 mg PO Q6HR #12 tab 03/23/19
--- NOTE | 2019-03-23 15:42 | US ---
EXAM DESCRIPTION: Abdomen,Limited: ULTRASOUND. CLINICAL HISTORY: abd pain, N/V/D, multiple surgeries COMPARISON: CT scan of abdomen and pelvis on the same visit. TECHNIQUE: Transabdominal scanning: hawk-scale mode. Doppler mode. Increased thickness of anterior abdominal wall subcutaneous tissue decreases resolution. FINDINGS: Gallbladder: Distended. Minimal sludge in the dependent gallbladder but no definite stones No fluid around the gallbladder. No wall thickening. 2.8 mm. Non-tender with transducer pressure. Common bile duct: caliber 5.1 mm within normal limits. Liver: Increased heterogeneous echogenicity; contour liver capsule smooth where seen. Limited visualization of the posterior liver. No fluid around the liver. Intrahepatic biliary ducts normal caliber. Doppler hepatopedal flow and normal caliber portal vein.. Long axis right lobe 14.5 cm. Pancreas: normal size and echogenicity. Duct not seen. Proximal abdominal aorta: 2.4 cm.. IVC: visualized and normal caliber. Right kidney: long axis measures 10.1 cm. Normal cortical Echogenicity. 6.9 x 6.4 cm cortical cyst abutting the liver. Second cortical cyst measuring 4.4 x 3.8 cm 11 mm cortical thickness. No echogenic stones or hydronephrosis. IMPRESSION: 1. Minimal dilation of the gallbladder and minimal sludge in the dependent portion of the gallbladder. No gallbladder wall thickening or fluid. Nontender with transducer pressure. Normal caliber common bile duct. 2. Fatty liver with physiologic vascularity and normal caliber ducts. Normal size. Smooth capsule with no ascites. 3. Pancreas unremarkable. Normal caliber of the proximal abdominal aorta. Minimal thinning of the right renal cortex. 6.9 cm cyst and 4.4 cm cyst in the upper pole. No hydronephrosis. Electronically signed by: Danyel Magana MD 03/23/2019 3:40 PM TAXI CAB DRIVER
--- NOTE | 2019-03-23 16:48 | CT ---
EXAM DESCRIPTION: Abdomen/Pelvis w/Contrast: Computed Tomography. CLINICAL HISTORY: 63 years Female Abdominal pain, pancreatitis COMPARISON: Gallbladder ultrasound on this visit. CT scan abdomen March 2015. TECHNIQUE: Spiral-axial scans at 5 x 5 mm intervals through the abdomen and pelvis, after nonionic IV contrast without oral contrast. Axial 2.5 mm reconstructions. Coronal and sagittal 2.0 mm reconstructions. No delayed scans. No adverse reactions. Total Exam DLP: 1446 mGy-cm. This exam was performed according to our departmental dose-optimization program which includes automated exposure control, adjustment of the mA and/or kV according to patient size and/or use of iterative reconstruction technique; to reduce radiation dose to as low as reasonably achievable (ALARA). FINDINGS: Lung bases and pleura: Negative. Liver, Stomach, Spleen, Adrenal Glands: Fatty liver, 20.5 cm right lobe long axis. No in the left liver are stable. In the lateral segment left lobe. Partial gastrectomy of the fundus. Remaining solid organs are negative. Pancreas, Gallbladder, Ducts: Dilated distal common duct and dilated gallbladder. No wall thickening or fatty stranding around the gallbladder. Pancreas not enlarged. No fatty stranding or fluid around the pancreas or cysts. Kidneys and Ureters: 2 cortical cysts in the left kidney approximately 2 cm in diameter with lobulation of the contour and thin cortex. 4 cm and 7 cm cysts on the mid and upper pole right kidney. Multiple stones 4 mm diameter or less in the inferior collecting system and mid collecting system but no hydronephrosis or hydroureter. Mesentery: No fatty stranding or fascial thickening; No free air or free fluid. Aorta: Moderate calcification, aorta normal caliber. Continuing into the bilateral common iliac arteries. Small Bowel: Gaseous distention of segments of the small bowel, distal jejunum and proximal ileum, with fluid but no transition point or mesenteric edema. Terminal Ileum/Cecum: Normal caliber. Appendix not seen. No adjacent inflammatory tissues. Colon: Moderate fecal matter with minimal distention in the colon and minimal gas. Redundancy of the transverse colon and splenic flexure with increased fecal material in the rectum. Moderate redundancy of the rectosigmoid. Diverticula with no complications. Thickening of the wall of the rectum with adjacent fatty edema.. Pelvic Organs: Minimal fluid in the cul-de-sac. Fluid around the rectum as noted. Vaginal cuff is unremarkable. Ovaries are not seen. Urinary bladder is negative. Spine and Bony Pelvis: Advanced spondylosis and grade 1-2 anterolisthesis L5-S1 with bilateral foraminal stenosis. Also stenosis in the left L4-L5 foramen with spondylosis. Bilateral foraminal stenosis L3-L4. L2-L3 disc space almost absent with canal narrowing and near stenosis of the foramina. Progressive disease in the lumbar spine. Spondylosis also at the levels above L2 and L3 and in the thoracic spine. Lumbar levoscoliosis. Stable to the prior study. Abdominal Wall/Back Soft Tissues: Bilateral fatty inguinal hernias are stable. Power pack left lateral subcutaneous tissues. Electrodes upper lumbar and lower thoracic spine canal. IMPRESSION: 1. Dilated gallbladder and common bile duct. No inflammatory changes in the surrounding fat. CT scan not sensitive for biliary tract stones. No pancreatic inflammation. Moderate enlargement of the liver with steatosis. No ascites. 2. Bilateral renal cysts with 2 larger cysts on the right kidney abutting the liver. Multiple stones 4 mm and less in diameter mid and lower right collecting system without hydronephrosis or hydroureter. 3. Minimal moderate constipation of the colon. Thickening of the distal rectal wall with surrounding edema could represent focal inflammation. Also minimal fluid in the inferior cul-de-sac. Diverticula but no complications. 4. Multiple levels of advanced lumbar spondylosis with multiple levels of foraminal stenosis. Progressed since the prior study. Electronically signed by: Danyel Magana MD 03/23/2019 4:46 PM DECORATION CHECKER
[2019-03-23 17:10] VITALS: BP 127/110; TEMP 98.2; O2SAT 99
== END 2019-03-23 17:00 | disposition home or self-care (01) ==
LOC: ER 13:30
DX: K85.00 Idiopathic acute pancreatitis without necrosis or infection (principal); R11.2 Nausea with vomiting, unspecified; R19.7 Diarrhea, unspecified; R00.0 Tachycardia, unspecified; K76.0 Fatty (change of) liver, not elsewhere classified; K21.9 Gastro-esophageal reflux disease without esophagitis; I10 Essential (primary) hypertension; Z98.84 Bariatric surgery status; Z79.2 Long term (current) use of antibiotics; Z79.899 Other long term (current) drug therapy
CPT/HCPCS: 74177; 76775; 80048; 80076; 83690; 85025; 93005; A4216; J1885; J2550; J7030

== ENCOUNTER → 2019-03-30 | Outpatient (CLI) | payer MEDICARE, OTHER | LOC: YCFC.O 16:11 | PROVIDERS: ATTEND Nurse Practitioner | DX: K85.90 Acute pancreatitis without necrosis or infection, unspecified (principal); E55.9 Vitamin D deficiency, unspecified ==

== ENCOUNTER → 2019-08-02 | Outpatient (CLI) | payer MEDICARE, OTHER ==
--- NOTE | 2019-08-02 16:16 | RAD ---
EXAM DESCRIPTION: Humerus,Left x-ray two views CLINICAL HISTORY: 63 years Female, PAIN IN UPPER LIMB HUMERUS LEFT COMPARISON: None. FINDINGS: Left humerus two x-ray views are negative for fracture or dislocation. Degenerative changes at the AC joint. Mild degenerative changes at the greater tuberosity and inferior glenoid. Bones appear mildly osteopenic. IMPRESSION: Negative for fracture. Electronically signed by: Mal Barker MD 08/02/2019 4:15 PM CDT
== END ==
LOC: RAD 10:09
PROVIDERS: ATTEND Orthopaedic Surgery
DX: M79.602 Pain in left arm (principal)

== ENCOUNTER → 2019-08-06 | Outpatient (CLI) | payer MEDICARE, OTHER ==
--- NOTE | 2019-08-07 07:45 | RAD ---
EXAM DESCRIPTION: [facility] CLINICAL HISTORY: KIDNEY STONES COMPARISON: July 24, 2018 IMPRESSION: Single AP supine view of the abdomen shows nonspecific, nonobstructive bowel gas pattern. Increased volume of stool throughout the colon suggests constipation or obstipation. Several calcifications measuring up to 4 mm are seen overlying the lower pole region of the right kidney compatible with patient's known nephrolithiasis. Several calcifications in the pelvis are likely vascular. No definite calcifications are seen in the expected location of the ureters. Surgical suture line in the left epigastric region seen. Severe disc degenerative changes and mild levocurvature of the lumbar spine is seen. Infusion pump is seen overlying the left midabdomen with catheter extending to the lower lumbar spine region. Electronically signed by: León Marinelli MD 08/07/2019 7:44 AM CDT
== END ==
LOC: RAD 14:39
PROVIDERS: ATTEND Urology
DX: N20.0 Calculus of kidney (principal); M51.36 Other intervertebral disc degeneration, lumbar region

== ENCOUNTER → 2019-08-20 | Outpatient (CLI) | payer MEDICARE, OTHER | LOC: LAB.O 10:29 | PROVIDERS: ATTEND Orthopaedic Surgery | DX: Z01.818 Encounter for other preprocedural examination (principal) ==

== ENCOUNTER → 2019-08-21 | Outpatient (CLI) | payer MEDICARE, MEDICAID ==
--- NOTE | 2019-08-21 13:21 | RAD ---
EXAM DESCRIPTION: Chest,2 Views x-ray CLINICAL HISTORY: 64 years Female, PRE OP COMPARISON: 07/03/2018 IMPRESSION: Heart size and pulmonary vascularity are within normal limits. Atherosclerosis in the thoracic aorta. There is no airspace consolidation, pleural effusion, or pneumothorax. No acute osseous abnormality. Electronically signed by: Telly Arreguin MD 08/21/2019 1:19 PM CDT
== END ==
LOC: YCFC.O 11:47
PROVIDERS: ATTEND Family Medicine
DX: Z01.818 Encounter for other preprocedural examination (principal); I70.0 Atherosclerosis of aorta

== ENCOUNTER → 2019-10-01 | Outpatient (CLI) | payer MEDICARE, MEDICAID | LOC: YCFC.O 16:04 | PROVIDERS: ATTEND Nurse Practitioner | DX: R30.0 Dysuria (principal); G60.9 Hereditary and idiopathic neuropathy, unspecified ==

== ENCOUNTER → 2019-11-14 | Outpatient (CLI) | payer MEDICARE, MEDICAID | LOC: YCFC.O 08:18 | PROVIDERS: ATTEND Family Medicine | DX: N39.0 Urinary tract infection, site not specified (principal) ==

== ENCOUNTER → 2020-02-11 | Outpatient (CLI) | payer MEDICARE, MEDICAID | LOC: YCFC.O 13:13 | PROVIDERS: ATTEND Nurse Practitioner Family | DX: N39.0 Urinary tract infection, site not specified (principal) ==

== ENCOUNTER 2020-02-14 18:10 | Emergency (ER) | payer MEDICARE, MEDICAID ==
[2020-02-14 19:04] VITALS: TEMP 97.1
[2020-02-14] MEDS ORDERED: ONDANSETRON ODT 8 MG TAB SL ONE (19:45)
--- NOTE | 2020-02-14 19:47 | ED.PDOC ---
History of Present Illness - General Chief Complaint: Abdominal Pain Stated Complaint: abd pain started today Time Seen by Provider: 02/14/20 19:12 Source: patient Exam Limitations: no limitations - History of Present Illness Initial Comments: Patient is a 64-year-old female presents emergency room secondary to reports of lower abdominal right lower quadrant discomfort for the last 2 days. Mild nausea but no vomiting. Mild increased urination. She went to her primary care doctor who diagnosed her with a fungal urinary tract infection and started her on Diflucan. She took her first dose of medication this point for that. No fevers. No diarrhea. She has been using the bathroom. No pain with ambulation. No flank pain. No chest pain. No palpitations. Timing/Duration: other - 2 days Severity: moderate Improving Factors: nothing Worsening Factors: nothing Associated Symptoms: nausea/vomiting Allergies/Adverse Reactions: Allergies Penicillins Allergy (Verified 02/14/20 19:04) Other Causes a rash and throat to swell horse serum Allergy (Uncoded 02/14/20 19:04) Unknown Home Medications: Ambulatory Orders Estradiol [Estrace] 1 mg PO BEDTIME 06/03/15 Diltiazem HCl 30 mg PO BID 12/28/15 Potassium Chloride Tab [Micro-K] 10 meq PO TID 12/28/15 Cyclobenzaprine HCl [Cyclobenzaprine Hydrochlo] 10 mg PO TID 05/21/17 Simvastatin 10 mg PO BEDTIME 05/21/17 Multiple Vitamins W/ Minerals [Alive Once Daily Womens U] 1 tab PO DAILY 07/03/17 Oral Electrolytes [Thermotabs] 1 tab PO DAILY 07/03/17 Famotidine 40 mg PO DAILY 06/13/18 Lisinopril & Hydrochlorothiazi [Lisinopril/Hctz 20-12.5 mg] 1 tab PO DAILY 06/13/18 Polyethylene Glycol 3350 [Miralax] 17 gm PO DAILY 06/13/18 Propranolol HCl [Propranolol Hydrochloride] 40 mg PO BID 06/13/18 Quetiapine Fumarate 300 mg PO BEDTIME 06/13/18 Naproxen [Naprosyn] 250 mg PO BID #14 tab 06/26/18 Amitriptyline HCl [Elavil] 25 mg PO BEDTIME 07/04/18 Clonazepam 1.5 mg PO BEDTIME 07/04/18 Cefdinir 300 mg PO BID #18 capsule 07/05/18 Topiramate [Topamax] 25 mg PO DAILY #30 tab 10/14/18 Ondansetron Odt [Zofran ODT] 4 mg PO Q8HR PRN #5 tab 11/20/18 Sucralfate Tab [Carafate Tab] 1 gm PO QID #60 tab 11/20/18 Hydrocodone-Acetaminophen [Griffin 5-325 mg] 1 - 2 tab PO Q6HR #20 tab 03/23/19 Promethazine Tab [Phenergan Tablet] 25 mg PO Q6HR #12 tab 03/23/19 Ondansetron Odt [Zofran ODT] 4 mg PO Q8HR PRN #5 tab 02/14/20 Review of Systems - Review of Systems Constitutional: States: no symptoms reported EENTM: States: no symptoms reported Respiratory: States: no symptoms reported Cardiology: States: no symptoms reported Gastrointestinal/Abdominal: States: abdominal pain, nausea. Denies: constipation, diarrhea, vomiting Genitourinary: States: dysuria - Mild, frequency, pain Musculoskeletal: States: no symptoms reported Skin: States: no symptoms reported Neurological: States: no symptoms reported Endocrine: States: no symptoms reported All other Systems: No Change from Baseline Past Medical History (General) - Patient Medical History Hx Seizures: No Hx Stroke: No Hx Dementia: No Hx Asthma: No Hx of COPD: No Hx Cardiac Disorders: No Hx Congestive Heart Failure: No Hx Pacemaker: No Hx Hypertension: Yes Hx Thyroid Disease: No Hx Diabetes: No Hx Gastroesophageal Reflux: Yes Hx Renal Disease: No Hx Cancer: No Hx of HIV: No Hx Hepatitis C: No Hx MRSA: No MRSA Source:: nose Surgical History: Hysterectomy - Vaccination History Hx Tetanus, Diphtheria Vaccination: No Hx Influenza Vaccination: Yes Hx Pneumococcal Vaccination: No - Social History Hx Tobacco Use: No Hx Chewing Tobacco Use: No Hx Alcohol Use: Yes Hx Substance Use: No Hx Substance Use Treatment: No Hx Depression: No Hx Physical Abuse: No Hx Emotional Abuse: No Hx Suspected Abuse: No - Female History Patient : No Family Medical History - Family History Mother Family History: No Known Living Status: Hx Family Hypertension: Yes - mom Hx Family Diabetes: Yes Hx Family Cancer: Yes - dad-kidney Father Family History: No Known Living Status: Hx Family Hypertension: Yes Hx Family Cancer: Yes Hx Family;Other: dialysis towards end of life Physical Exam - Physical Exam General Appearance: Alert, Comfortable, No apparent distress Eye Exam: bilateral normal Ears, Nose, Throat: hearing grossly normal, normal pharynx Neck: non-tender, supple Respiratory: lungs clear, normal breath sounds, no respiratory distress, no accessory muscle use Cardiovascular/Chest: normal peripheral pulses, no edema, other - Regular rate Peripheral Pulses: radial,right: 2+, radial,left: 2+ Gastrointestinal/Abdominal: soft, other - Suprapubic discomfort to palpation. No definite guarding. No palpable mass. No real right lower quadrant discomfort to palpation. 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 Urine will be cultured. She is already been written for Diflucan which she needs to complete her course of. Looking back over her past medical history, she has had multiple CT scans here showing no evidence of any appendix and she has had a hysterectomy in the past. She has had on multiple occasions however had fungal cystitis as well. She needs to keep her self well-hydrated. [id number] anti-inflammatory such as Motrin or Aleve can also help with discomfort. Obviously if the patient symptoms are worsening rather than improving then additional work-up would be warranted. She also needs to discuss with her primary care doctor possibly seeing a urologist being that she has had multiple fungal urinary tract infections in the past. Vital signs are stable. No evidence of a surgical abdomen at this point. ER warnings are given. Follow-up with primary care doctor next week. edith vaughn [phone] - Results/Orders Results/Orders: Laboratory Results - last 24 hr 02/14/20 19:11 Urine Color Yellow Urine Appearance Clear Urine pH 5.5 Ur Specific Shirley 1.020 Urine Protein Negative Urine Glucose (UA) Negative Urine Ketones Negative Urine Blood Negative Urine Nitrite Negative Urine Bilirubin Negative Urine Urobilinogen 0.2 Ur Leukocyte Esterase Negative Urine RBC 0-1 Urine WBC 5-10 H Ur Epithelial Cells 5-10 Urine Bacteria Rare Urine Mucus Trace Urine Yeast 1+ budding H Departure - Departure Clinical Impression: Yeast UTI Disposition: Discharge to Home or Self Care Condition: Fair Departure Forms: ED Discharge - Pt. Copy, Patient Portal Self Enrollment Instructions: DI for Abdominal Pain-Adult, Urinary Tract Infection, Adult (DC) Diet: regular diet Activity: increase activity as tolerated Referrals: Kae Stephen FNP [Primary Care Provider] - 1-2 Weeks Prescriptions: Ondansetron Odt [Zofran ODT] 4 mg PO Q8HR PRN #5 tab PRN Reason: Nausea--Moderate Home Medications: Ambulatory Orders Estradiol [Estrace] 1 mg PO BEDTIME 06/03/15 Diltiazem HCl 30 mg PO BID 12/28/15 Potassium Chloride Tab [Micro-K] 10 meq PO TID 12/28/15 Cyclobenzaprine HCl [Cyclobenzaprine Hydrochlo] 10 mg PO TID 05/21/17 Simvastatin 10 mg PO BEDTIME 05/21/17 Multiple Vitamins W/ Minerals [Alive Once Daily Womens U] 1 tab PO DAILY 07/03/17 Oral Electrolytes [Thermotabs] 1 tab PO DAILY 07/03/17 Famotidine 40 mg PO DAILY 06/13/18 Lisinopril & Hydrochlorothiazi [Lisinopril/Hctz 20-12.5 mg] 1 tab PO DAILY 06/13/18 Polyethylene Glycol 3350 [Miralax] 17 gm PO DAILY 06/13/18 Propranolol HCl [Propranolol Hydrochloride] 40 mg PO BID 06/13/18 Quetiapine Fumarate 300 mg PO BEDTIME 06/13/18 Naproxen [Naprosyn] 250 mg PO BID #14 tab 06/26/18 Amitriptyline HCl [Elavil] 25 mg PO BEDTIME 07/04/18 Clonazepam 1.5 mg PO BEDTIME 07/04/18 Cefdinir 300 mg PO BID #18 capsule 07/05/18 Topiramate [Topamax] 25 mg PO DAILY #30 tab 10/14/18 Ondansetron Odt [Zofran ODT] 4 mg PO Q8HR PRN #5 tab 11/20/18 Sucralfate Tab [Carafate Tab] 1 gm PO QID #60 tab 11/20/18 Hydrocodone-Acetaminophen [Griffin 5-325 mg] 1 - 2 tab PO Q6HR #20 tab 03/23/19 Promethazine Tab [Phenergan Tablet] 25 mg PO Q6HR #12 tab 03/23/19 Ondansetron Odt [Zofran ODT] 4 mg PO Q8HR PRN #5 tab 02/14/20 Additional Instructions: The patient is a 64-year-old female presented emergency room with what appears to be a fungal cystitis causing her urinary tract infection. Urine will be cultured. She is already been written for Diflucan which she needs to complete her course of. Looking back over her past medical history, she has had multiple CT scans here showing no evidence of any appendix and she has had a hysterectomy in the past. She has had on multiple occasions however had fungal cystitis as well. She needs to keep her self well-hydrated. [id number] anti-inflammatory such as Motrin or Aleve can also help with discomfort. Obviously if the patient symptoms are worsening rather than improving then additional work-up would be warranted. She also needs to discuss with her primary care doctor possibly seeing a urologist being that she has had multiple fungal urinary tract infections in the past. Vital signs are stable. No evidence of a surgical abdomen at this point. ER warnings are given. Follow-up with primary care doctor next week.
[2020-02-14 20:38] VITALS: O2SAT 96
[2020-02-14 20:41] VITALS: BP 155/96
== END 2020-02-14 20:40 | disposition home or self-care (01) ==
LOC: ER 18:10
DX: B37.49 Other urogenital candidiasis (principal); K21.9 Gastro-esophageal reflux disease without esophagitis; I10 Essential (primary) hypertension; R11.0 Nausea; Z87.440 Personal history of urinary (tract) infections; Z79.899 Other long term (current) drug therapy; Z88.0 Allergy status to penicillin

== ENCOUNTER → 2020-02-18 | Outpatient (CLI) | payer MEDICARE, MEDICAID ==
--- NOTE | 2020-02-19 09:41 | RAD ---
EXAM DESCRIPTION: Abdomen Flat Upright CLINICAL HISTORY: 64 years Female, ABD PAIN COMPARISON: Previous x-ray [facility] August 06, 2019 FINDINGS: Upright view the abdomen shows no abnormal air-fluid levels. 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 Surgical susanna along the left side of the lower thoracic spine. Moderate amount of fecal material throughout the colon. Lung bases appear clear. Supine view shows marked degenerative sclerosis of the lumbar spine at L3-4 level. Multilevel marginal osteophyte formation. Sacrum appears intact with narrow SI joints. No small bowel dilatation to suggest obstruction. No abnormal calculi in the region of the kidneys. Multiple pelvic calcifications probably phleboliths. No bony destructive lesion or fracture. Similar findings on previous study. IMPRESSION: Moderate amount of fecal material in the colon. Marked degenerative changes of the thoracolumbar spine. Electronically signed by: Mal Barker MD 02/19/2020 9:39 AM [employer]
== END ==
LOC: RAD 16:46
PROVIDERS: ATTEND Nurse Practitioner Family
DX: K59.00 Constipation, unspecified (principal); M47.895 Other spondylosis, thoracolumbar region

== ENCOUNTER 2020-03-14 11:30 | Emergency (ER) | payer MEDICARE, MEDICAID ==
--- NOTE | 2020-03-14 12:00 | ED.PDOC ---
History of Present Illness - General Chief Complaint: General Stated Complaint: Epigastric pain, N/V, SANTANA Time Seen by Provider: 03/14/20 11:32 Source: patient, RN notes reviewed, old records Exam Limitations: no limitations - History of Present Illness Initial Comments: 64 yo F with multiple visits for frequent abdominal pain comes in with 1 day of midepigastric pain, n/v. no diarrhea, no fever. Does have mild frontal headache. no shortness of breath. Hx of HTN and recurrent UTI. no new medications. Hx of choleycystectomy and hysterectomy. Pain started after eating a cheese burger. Timing/Duration: 24 hours Allergies/Adverse Reactions: Allergies Penicillins Allergy (Verified 02/14/20 19:04) Other Causes a rash and throat to swell horse serum Allergy (Uncoded 02/14/20 19:04) Unknown Home Medications: Ambulatory Orders Estradiol [Estrace] 1 mg PO BEDTIME 06/03/15 Diltiazem HCl 30 mg PO BID 12/28/15 Potassium Chloride Tab [Micro-K] 10 meq PO TID 12/28/15 Cyclobenzaprine HCl [Cyclobenzaprine Hydrochlo] 10 mg PO TID 05/21/17 Simvastatin 10 mg PO BEDTIME 05/21/17 Multiple Vitamins W/ Minerals [Alive Once Daily Womens U] 1 tab PO DAILY 07/03/17 Oral Electrolytes [Thermotabs] 1 tab PO DAILY 07/03/17 Famotidine 40 mg PO DAILY 06/13/18 Lisinopril & Hydrochlorothiazi [Lisinopril/Hctz 20-12.5 mg] 1 tab PO DAILY 06/13/18 Polyethylene Glycol 3350 [Miralax] 17 gm PO DAILY 06/13/18 Propranolol HCl [Propranolol Hydrochloride] 40 mg PO BID 06/13/18 Quetiapine Fumarate 300 mg PO BEDTIME 06/13/18 Naproxen [Naprosyn] 250 mg PO BID #14 tab 06/26/18 Amitriptyline HCl [Elavil] 25 mg PO BEDTIME 07/04/18 Clonazepam 1.5 mg PO BEDTIME 07/04/18 Cefdinir 300 mg PO BID #18 capsule 07/05/18 Topiramate [Topamax] 25 mg PO DAILY #30 tab 10/14/18 Ondansetron Odt [Zofran ODT] 4 mg PO Q8HR PRN #5 tab 11/20/18 Sucralfate Tab [Carafate Tab] 1 gm PO QID #60 tab 11/20/18 Hydrocodone-Acetaminophen [[place] 5-325 mg] 1 - 2 tab PO Q6HR #20 tab 03/23/19 Promethazine Tab [Phenergan Tablet] 25 mg PO Q6HR #12 tab 03/23/19 Ondansetron Odt [Zofran ODT] 4 mg PO Q8HR PRN #5 tab 02/14/20 Fluconazole [Diflucan Tab] 100 mg PO DAILY #2 tab 03/14/20 Ondansetron HCl [Zofran] 4 mg PO TID PRN #15 tab 03/14/20 Sulfamethoxazole-Trimethoprim [Bactrim Ds 800-160 mg] 1 tab PO BID 10 Days #20 tab 03/14/20 Review of Systems - Review of Systems Constitutional: Denies: chills, fever, malaise EENTM: Denies: eye pain, nose pain, throat pain Respiratory: Denies: cough, short of breath Cardiology: Denies: chest pain Gastrointestinal/Abdominal: States: abdominal pain, nausea, vomiting. Denies: constipation, diarrhea Genitourinary: Denies: dysuria, frequency, hematuria Musculoskeletal: Denies: back pain, muscle pain Skin: Denies: rash Neurological: States: headache. Denies: numbness, paresthesia, weakness Endocrine: Denies: unexplained weight gain, unexplained weight loss Hematologic/Lymphatic: Denies: blood clots, easy bleeding, easy bruising Past Medical History (General) - Patient Medical History Hx Seizures: No Hx Stroke: No Hx Dementia: No Hx Asthma: No Hx of COPD: No Hx Cardiac Disorders: No Hx Congestive Heart Failure: No Hx Pacemaker: No Hx Hypertension: Yes Hx Thyroid Disease: No Hx Diabetes: No Hx Gastroesophageal Reflux: Yes Hx Renal Disease: No Hx Cancer: No Hx of HIV: No Hx Hepatitis C: No Hx MRSA: No MRSA Source:: nose - Vaccination History Hx Tetanus, Diphtheria Vaccination: No Hx Influenza Vaccination: Yes Hx Pneumococcal Vaccination: No - Social History Hx Tobacco Use: No Hx Chewing Tobacco Use: No Hx Alcohol Use: Yes Hx Substance Use: No Hx Substance Use Treatment: No Hx Depression: No Hx Physical Abuse: No Hx Emotional Abuse: No Hx Suspected Abuse: No - Female History Patient : No Family Medical History - Family History Mother Family History: No Known Living Status: Hx Family Hypertension: Yes - mom Hx Family Diabetes: Yes Hx Family Cancer: Yes - dad-kidney Father Family History: No Known Living Status: Hx Family Hypertension: Yes Hx Family Cancer: Yes Hx Family;Other: dialysis towards end of life Physical Exam - Physical Exam General Appearance: Alert, Comfortable, No apparent distress, Well Developed, Well Groomed, Well Hydrated, Well Nourished Eye Exam: bilateral normal Ears, Nose, Throat: hearing grossly normal, normal ENT inspection, normal pharynx Neck: non-tender, full range of motion, supple, normal inspection Respiratory: chest non-tender, lungs clear, normal breath sounds, no respiratory distress, no accessory muscle use Cardiovascular/Chest: normal peripheral pulses, regular rate, rhythm, no edema, no gallop, no JVD, no murmur Peripheral Pulses: radial,right: 2+, radial,left: 2+ Gastrointestinal/Abdominal: normal bowel sounds, non tender, soft, no organomegaly, no pulsatile mass Rectal Exam: deferred Back Exam: normal inspection, no CVA tenderness, no vertebral tenderness Extremity: normal range of motion, non-tender, normal inspection, no calf tenderness, normal capillary refill 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 given patient has not pulmonary symptoms and the poor wave form on pulse ox, most likely a malfunction with pulse ox. attempted ear pulse ox which was also 90% on 2 L; however, had a poor wave form. Will get ABG. Which showed Pao2 123, and So2 98%. 03/14/20 13:57 patient symptoms resolved after some fluids and zofran. WIll po challenge. Patient has had 9 abd/pelvis Ct in the past 2-3 years, will avoid any further CT at this time as her symptoms have improved. states normally on bactrim for UTI. has appointment with urologist in 3 days. The data reviewed when caring for this patient included: nurse notes, prior records, etc. The history and assessments from nurses notes were reviewed and considered, and the patient's home medication list was also reviewed and considered. My assessment and the results of testing completed here in the ED were discussed with the patient/family. All questions were answered, and they express understanding of my assessment and the plan. They have been instructed to return if their symptoms worsen, and have been asked to follow up with their primary care physician to recheck today's presenting complaint. Strict return precautions given. I have reviewed medication, benefits, alternatives and side effects. Patient decided to proceed with medication.patient discharged home in stable condition. Narcisa Guzman DO #[id number] 03/14/20 14:39 - Results/Orders Results/Orders: 03/14/20 12:00 EKG STAT 03/14/20 13:45 URINE CULTURE W/COLONY COUNT Stat 03/14/20 14:06 URINE CULTURE W/COLONY COUNT Stat Laboratory Results WBC 5.5 K/mm3 (4.8-10.8) 03/14/20 12:00 RBC 4.16 M/mm3 (4.20-5.40) L 03/14/20 12:00 Hgb 13.1 gm/dL (12.0-16.0) 03/14/20 12:00 Hct 39.5 % (36.0-47.0) 03/14/20 12:00 MCV 95.0 fl (81.0-99.0) 03/14/20 12:00 MCH 31.6 pg (27.0-31.0) H 03/14/20 12:00 MCHC 33.2 g/dL (33.0-37.0) 03/14/20 12:00 RDW 13.4 % (11.5-14.5) 03/14/20 12:00 Plt Count 217 K/mm3 (130-400) 03/14/20 12:00 MPV 9.5 fl (7.40-10.4) 03/14/20 12:00 Absolute Neuts (auto) 2.90 K/uL (1.8-6.8) 03/14/20 12:00 Absolute Lymphs (auto) 2.00 K/uL (1.0-3.4) 03/14/20 12:00 Absolute Monos (auto) 0.40 K/uL (0.2-0.8) 03/14/20 12:00 Absolute Eos (auto) 0.10 K/uL (0.0-0.4) 03/14/20 12:00 Absolute Basos (auto) 0.00 K/uL (0.0-0.1) 03/14/20 12:00 Neutrophils % 53.4 % (42.0-78.0) 03/14/20 12:00 Lymphocytes % 36.7 % (20.0-50.0) 03/14/20 12:00 Monocytes % 6.7 % (2.0-9.0) 03/14/20 12:00 Eosinophils % 2.5 % (1.0-5.0) 03/14/20 12:00 Basophils % 0.7 % (0.0-2.0) 03/14/20 12:00 PT 10.0 SECONDS (9.0-10.9) 03/14/20 12:00 INR 1.00 (0.9-1.15) 03/14/20 12:00 PTT (SP) 25.2 SECONDS (21.8-31.6) 03/14/20 12:00 D-Dimer, Quantitative 329.0 ng/ml (131-400) 03/14/20 12:00 pCO2 37 mmHg (32-45) 03/14/20 13:54 pO2 123 mmHg (83-108) H* 03/14/20 13:54 HCO3 21.4 mmol/L 03/14/20 13:54 ABG pH 7.378 (7.35-7.45) 03/14/20 13:54 ABG O2 Saturation 97.7 % (95.0-99.0) 03/14/20 13:54 ABG Base Excess -3.3 mmol/L 03/14/20 13:54 ABG Deoxyhemoglobin 2.2 % (0.0-5.0) 03/14/20 13:54 Oxyhemoglobin % 91.7 % (94.0-98.0) L 03/14/20 13:54 Carboxyhemoglobin % 0.0 % (0.5-1.5) L 03/14/20 13:54 Methemoglobin % Sat 6.1 % (0.0-1.5) H 03/14/20 13:54 Calc Total Hemoglobin 11.8 g/dL (12.0-16.0) L 03/14/20 13:54 Sodium 135 mmol/L (135-145) 03/14/20 12:00 Potassium 3.9 mmol/L (3.6-5.0) 03/14/20 12:00 Chloride 101 mmol/L (101-111) 03/14/20 12:00 Carbon Dioxide 22 mmol/L (21-31) 03/14/20 12:00 Anion Gap 15.9 (12-18) 03/14/20 12:00 BUN 13 mg/dL (7-18) 03/14/20 12:00 Creatinine 0.92 mg/dL (0.6-1.3) 03/14/20 12:00 BUN/Creatinine Ratio 14.1 (10-20) 03/14/20 12:00 Random Glucose 113 mg/dL (70-105) H 03/14/20 12:00 Serum Osmolality 271.0 mOsm/L (275-295) L 03/14/20 12:00 Calcium 9.0 mg/dL (8.4-10.2) 03/14/20 12:00 Total Bilirubin 0.7 mg/dL (0.2-1.0) 03/14/20 12:00 AST 19 IU/L (10-42) 03/14/20 12:00 ALT 13 IU/L (10-60) 03/14/20 12:00 Alkaline Phosphatase 39 IU/L (42-121) L 03/14/20 12:00 Troponin I < 0.02 ng/mL (0.01-0.05) 03/14/20 12:00 Serum Total Protein 7.3 gm/dL (6.4-8.2) 03/14/20 12:00 Albumin 4.3 g/dl (3.2-5.5) 03/14/20 12:00 Globulin 3.0 gm/dL (2.3-3.5) 03/14/20 12:00 Albumin/Globulin Ratio 1.4 (1.1-1.9) 03/14/20 12:00 Lipase 19 U/L (22-51) L 03/14/20 12:00 Urine Color Grady (Yellow) H 03/14/20 13:45 Urine Appearance Sl cloudy (Clear) 03/14/20 13:45 Urine pH 5.0 (4.5-7.8) 03/14/20 13:45 Ur Specific [place] <= 1.005 (1.005-1.030) 03/14/20 13:45 Urine Protein 100 mg/dL H 03/14/20 13:45 Urine Glucose (UA) 250 mg/dL (Negative) H 03/14/20 13:45 Urine Ketones 15 mg/dL (NEGATIVE) H 03/14/20 13:45 Urine Blood Negative (Negative) 03/14/20 13:45 Urine Nitrite Positive H 03/14/20 13:45 Urine Bilirubin Moderate (NEGATIVE) 03/14/20 13:45 Urine Urobilinogen >= 8.0 mg/dL (0.2-1.0) H 03/14/20 13:45 Ur Leukocyte Esterase Large (Negative) H 03/14/20 13:45 Urine RBC 0-1 /hpf 03/14/20 13:45 Urine WBC 20-30 /hpf H 03/14/20 13:45 Ur Epithelial Cells 20-30 /hpf 03/14/20 13:45 Urine Bacteria 1+ 03/14/20 13:45 Urine Mucus Trace 03/14/20 13:45 Urine Yeast 1+ budding H 03/14/20 13:45 - EKG/XRAY/CT EKG: Sinus - 78, nsr, normal intervals, no acute ischemia. XRAY: chest - no acute cardiopulmonary pathology. Xray Comments: flat and upright shows no evidence of sbo Departure - Departure Clinical Impression: Yeast infection Nausea & vomiting Qualifiers: Vomiting type: unspecified Vomiting Intractability: non-intractable Qualified Code(s): R11.2 - Nausea with vomiting, unspecified UTI (urinary tract infection) Qualifiers: Urinary tract infection type: acute cystitis Hematuria presence: with hematuria Qualified Code(s): N30.01 - Acute cystitis with hematuria Time of Disposition: 14:05 Disposition: Discharge to Home or Self Care Departure Forms: ED Discharge - Pt. Copy, Patient Portal Self Enrollment Instructions: Urinary Tract Infections in Adults, Nausea and Vomiting, Adult (DC), Yeast Infection (DC) Diet: bland diet Activity: increase activity as tolerated Referrals: Kae Stephen FNP [Primary Care Provider] - 1-2 Days Prescriptions: Sulfamethoxazole-Trimethoprim [Bactrim Ds 800-160 mg] 1 tab PO BID 10 Days #20 tab Fluconazole [Diflucan Tab] 100 mg PO DAILY #2 tab Ondansetron HCl [Zofran] 4 mg PO TID PRN #15 tab PRN Reason: Vomiting Home Medications: Ambulatory Orders Estradiol [Estrace] 1 mg PO BEDTIME 06/03/15 Diltiazem HCl 30 mg PO BID 12/28/15 Potassium Chloride Tab [Micro-K] 10 meq PO TID 12/28/15 Cyclobenzaprine HCl [Cyclobenzaprine Hydrochlo] 10 mg PO TID 05/21/17 Simvastatin 10 mg PO BEDTIME 05/21/17 Multiple Vitamins W/ Minerals [Alive Once Daily Womens U] 1 tab PO DAILY Oral Electrolytes [Thermotabs] 1 tab PO DAILY 07/03/17 Famotidine 40 mg PO DAILY 06/13/18 Lisinopril & Hydrochlorothiazi [Lisinopril/Hctz 20-12.5 mg] 1 tab PO DAILY 06/13/18 Polyethylene Glycol 3350 [Miralax] 17 gm PO DAILY 06/13/18 Propranolol HCl [Propranolol Hydrochloride] 40 mg PO BID 06/13/18 Quetiapine Fumarate 300 mg PO BEDTIME 06/13/18 Naproxen [Naprosyn] 250 mg PO BID #14 tab 06/26/18 Amitriptyline HCl [Elavil] 25 mg PO BEDTIME 07/04/18 Clonazepam 1.5 mg PO BEDTIME 07/04/18 Cefdinir 300 mg PO BID #18 capsule 07/05/18 Topiramate [Topamax] 25 mg PO DAILY #30 tab 10/14/18 Ondansetron Odt [Zofran ODT] 4 mg PO Q8HR PRN #5 tab 11/20/18 Sucralfate Tab [Carafate Tab] 1 gm PO QID #60 tab 11/20/18 Hydrocodone-Acetaminophen [[place] 5-325 mg] 1 - 2 tab PO Q6HR #20 tab 03/23/19 Promethazine Tab [Phenergan Tablet] 25 mg PO Q6HR #12 tab 03/23/19 Ondansetron Odt [Zofran ODT] 4 mg PO Q8HR PRN #5 tab 02/14/20 Fluconazole [Diflucan Tab] 100 mg PO DAILY #2 tab 03/14/20 Ondansetron HCl [Zofran] 4 mg PO TID PRN #15 tab 03/14/20 Sulfamethoxazole-Trimethoprim [Bactrim Ds 800-160 mg] 1 tab PO BID 10 Days #20 tab 03/14/20
[2020-03-14] MEDS ORDERED: SODIUM CHLORIDE 0.9% 1000ML 1,000 ML IVS ONE (12:08)
[2020-03-14] MEDS ORDERED: ONDANSETRON INJ 4 MG/2 ML VIAL IV ONE (12:08)
--- NOTE | 2020-03-14 12:55 | RAD ---
EXAM: Abdomen Series INDICATION: 64 years Female, abd pain, emesis COMPARISON: None available FINDINGS: 4 images of the chest and abdomen were obtained for acute abdominal series. Heart size is within normal limits. Hazy opacification in the peripheral right mid and lower lung zone is favored to be related to underpenetration related to overlying soft tissues and body habitus. No definite pulmonary infiltrate is identified. No pleural effusion. No pneumothorax. No free air beneath the diaphragm. Multiple mildly prominent loops of air-filled small bowel are noted in the right upper quadrant, probably with some air-fluid levels on the upright view. Mild gaseous distention of the sigmoid colon. Moderate stool burden. Sutures are noted in the left upper quadrant. Degenerative changes in the spine. A battery pack is noted in the left lower quadrant with a lead extending to the spine. IMPRESSION: 1. No evidence for acute cardiopulmonary process. 2. A few mildly prominent loops of air-filled small bowel are noted in the right upper quadrant, although without convincing evidence for high-grade mechanical small bowel obstruction at this time. This could potentially represent localized ileus. 3. Moderate stool burden. Electronically signed by: Magda Yeh MD 03/14/2020 12:53 PM [facility]
[2020-03-14] MEDS ORDERED: cefTRIAXone SODIUM 1 GM in SODIUM CHL 0.9% 50ML MIN-BAG+ 50 ML IVPB ONE (14:11)
[2020-03-14 15:13] VITALS: BP 119/83; TEMP 97.7; O2SAT 93
== END 2020-03-14 15:06 | disposition home or self-care (01) ==
LOC: ER 11:30
DX: N30.01 Acute cystitis with hematuria (principal); B37.9 Candidiasis, unspecified; R11.2 Nausea with vomiting, unspecified; I10 Essential (primary) hypertension; K21.9 Gastro-esophageal reflux disease without esophagitis; Z20.822 Contact with and (suspected) exposure to COVID-19; Z87.440 Personal history of urinary (tract) infections; Z90.49 Acquired absence of other specified parts of digestive tract; Z90.710 Acquired absence of both cervix and uterus; Z88.0 Allergy status to penicillin; Z79.899 Other long term (current) drug therapy

== ENCOUNTER → 2020-03-25 | Outpatient (CLI) | payer MEDICARE, MEDICAID ==
[~2020-03-25] MED LIST: SODIUM CHLORIDE 0.9% 1000ML 1,000 ML IVS ONE
== END ==
LOC: INFRM 14:02
PROVIDERS: ATTEND Nurse Practitioner
DX: E86.0 Dehydration (principal)
CPT/HCPCS: 96360; J7030

== ENCOUNTER → 2020-04-07 | Outpatient (CLI) | payer MEDICARE, OTHER | LOC: YCFC.O 12:11 | PROVIDERS: ATTEND Nurse Practitioner | DX: R82.79 Other abnormal findings on microbiological examination of urine (principal) ==

== ENCOUNTER → 2020-04-08 | Outpatient (CLI) | payer MEDICARE, OTHER | LOC: YCFC.O 15:12 | PROVIDERS: ATTEND Nurse Practitioner Family | DX: R73.01 Impaired fasting glucose (principal); Z13.1 Encounter for screening for diabetes mellitus; Z13.220 Encounter for screening for lipoid disorders; I10 Essential (primary) hypertension; Z83.3 Family history of diabetes mellitus; Z68.34 Body mass index [BMI] 34.0-34.9, adult ==